=== PATIENT | female | born 1990 | race Asian ===

== ENCOUNTER 2021-02-19 10:52 | Inpatient (IN) | payer MEDICAID, OTHER ==
[~2021-02-19] VITALS: Ht 154.9 cm; Wt 60.0 kg
[2021-02-19 12:35] LABS: AMPHET/METH SCREEN,URINE POSITIVE (NEGATIVE); BARBITURATE SCREEN, URINE NEGATIVE (NEGATIVE); BENZODIAZEPINES SCREEN,URINE NEGATIVE (NEGATIVE); CANNABINOID SCREEN,URINE POSITIVE (NEGATIVE); COCAINE SCREEN,URINE NEGATIVE (NEGATIVE); METHADONE SCREEN, URINE NEGATIVE (NEGATIVE); OPIATE SCREEN,URINE NEGATIVE (NEGATIVE); PHENCYCLIDINE SCREEN,URINE NEGATIVE (NEGATIVE)
[2021-02-19 12:38] LABS: BASOPHILS % (AUTO) 0.4 % (0.0-2.0); EOSINOPHILS % (AUTO) 3.2 % (1.0-6.0); HEMATOCRIT 47.6 % (36-46); HEMOGLOBIN 15.8 g/dL (12.0-16.0); LYMPHOCYTES # (AUTO) 1.8 K/uL (1.0-4.8); LYMPHOCYTES % (AUTO) 17.2 % (22.0-44.0); MEAN CORPUSCULAR HEMOGLOBIN 30.7 pg (26.0-34.0); MEAN CORPUSCULAR HGB CONC 33.2 G/dL (31.0-37.0); MEAN CORPUSCULAR VOLUME 93 fL (80-100); MONOCYTES # (AUTO) 0.7 K/uL (0.1-1.0); MONOCYTES % (AUTO) 6.7 % (2.0-9.0); NEUTROPHILS # (AUTO) 7.6 K/uL (1.8-7.7); NEUTROPHILS % (AUTO) 72.5 % (40.0-70.0); PLATELET COUNT (AUTO) 254 K/uL (150-450); RED BLOOD CELL COUNT(AUTO) 5.14 MIL/uL (4.00-5.20); RED CELL DISTRIBUTION WIDTH 12.9 % (11.5-14.5)
[2021-02-19 12:49] LABS: ANION GAP 15 mmol/L (8-16); CARBON DIOXIDE 23 mmol/L (22-29); CHLORIDE 104 mmol/L (98-107); CREATININE 0.73 mg/dL (0.60-1.30); GLOMERULAR FILTR. RATE CALC > 60 mL/min (>60); GLUCOSE,RANDOM 87 mg/dL (70-110); POTASSIUM 3.9 mmol/L (3.5-5.1); SODIUM SERUM 142 mmol/L (136-145); UREA NITROGEN, BLOOD 16 mg/dL (7-18)
[2021-02-19 12:54] LABS: ALANINE AMINOTRANSFERASE 30 U/L (12-78); ALBUMIN 4.3 g/dL (3.4-5.0); ALKALINE PHOSPHATASE 117 U/L (46-116); ASPARTATE AMINOTRANSFERASE 20 U/L (15-37); BILIRUBIN,TOTAL 1.2 mg/dL (0.1-1.0); TOTAL PROTEIN, SERUM 8.2 g/dL (6.4-8.2)
[2021-02-19 13:13] LABS: COVID AG,FIA SOURCE NASOPHARYNGEAL
[2021-02-19] MEDS ORDERED: ZOLPIDEM TARTRATE 10 MG TABLET PO PRN (13:15)
[2021-02-19 17:57] VITALS: BP 127/82
[2021-02-20] MEDS ORDERED: DOCUSATE SODIUM 100 MG CAPSULE PO PRN (08:30)
[2021-02-20] MEDS ORDERED: MAGNESIUM HYDROXIDE SUSPENSION 30 ML UDCUP PO PRN (08:30)
[2021-02-20] MEDS ORDERED: ALBUTEROL SULFATE HFA 90 MCG/PUFF 8 GM INHALER IH PRN (08:30)
[2021-02-20] MEDS ORDERED: BENZOCAINE/MENTHOL LOZENGE PO PRN (08:30)
[2021-02-20] MEDS ORDERED: LOPERAMIDE HCL 2 MG CAPSULE PO PRN (08:30)
[2021-02-20] MEDS ORDERED: OMEPRAZOLE 20 MG CAPSULE PO PRN (08:30)
[2021-02-20] MEDS ORDERED: ACETAMINOPHEN 325 MG TABLET PO PRN (08:30)
[2021-02-20] MEDS ORDERED: PETROLATUM,WHITE 28 GM JELLY TP PRN (08:30)
[2021-02-20] MEDS ORDERED: CloNIDine HCL 0.1 MG TABLET PO PRN (08:30)
[2021-02-20] MEDS ORDERED: IBUPROFEN 600 MG TABLET PO PRN (08:30)
[2021-02-20] MEDS ORDERED: BACITRACIN 28 GM OINTMENT TP PRN (08:30)
[2021-02-20] MEDS ORDERED: ONDANSETRON HCL 4 MG TABLET PO PRN (08:30)
[2021-02-20] MEDS ORDERED: MAG HYDROX/AL HYDROX/SIMETH ES 30 ML SUSPENSION UDCUP PO PRN (08:30)
[2021-02-20 08:45] VITALS: BP 131/89
[2021-02-20] MEDS: NICOTINE 21 MG/24 HOUR PATCH TD SCH (10:04)
[2021-02-20] MEDS: BusPIRone HCL 5 MG TABLET PO SCH ×2 (11:21→16:18)
[2021-02-20 11:36] LABS: BILIRUBIN,URINE NEGATIVE (NEGATIVE); GLUCOSE, URINE (UA) NEGATIVE (NEGATIVE); KETONES,URINE NEGATIVE (NEGATIVE); LEUKOCYTE ESTERASE ,URINE NEGATIVE (NEGATIVE); NITRATE,URINE NEGATIVE (NEGATIVE); OCCULT BLOOD,URINE NEGATIVE (NEGATIVE); PH,URINE 5.5 (5.0-8.0); PROTEIN,URINE NEGATIVE (NEGATIVE); UROBILINOGEN,URINE 0.2 mg/dL (<=1.0)
[2021-02-20 11:40] LABS: APPEARANCE,URINE CLEAR (CLEAR)
[2021-02-20 11:47] LABS: BACTERIA,URINE None Seen /HPF (None Seen); RBC,URINE None Seen /HPF (0-2); WBC,URINE None Seen /HPF (0-5)
[2021-02-20 12:32] LABS: CHOL/HDL RATIO 3.6 (3.9-5.7); THYROID STIMULATING HORMONE 1.34 uIU/mL (0.36-3.74)
[2021-02-20 16:22] VITALS: BP 116/74
[2021-02-20] MEDS: TraZODone HCL 50 MG TABLET PO SCH (20:34)
[2021-02-21 04:07] VITALS: BP 122/83
[2021-02-21 08:00] VITALS: BP 118/71
[2021-02-21] MEDS: BusPIRone HCL 5 MG TABLET PO SCH ×2 (08:33→16:33)
[2021-02-21] MEDS: NICOTINE 21 MG/24 HOUR PATCH TD SCH (08:34)
[2021-02-21] MEDS: LORazepam 2 MG TABLET PO PRN (08:52)
[2021-02-21] MEDS: HALOPERIDOL 5 MG TABLET PO PRN (12:54)
[2021-02-21 16:00] VITALS: BP 117/76
[2021-02-21] MEDS: TraZODone HCL 50 MG TABLET PO SCH (20:33)
[2021-02-22 00:05] VITALS: BP 133/64
[2021-02-22] MEDS: BusPIRone HCL 5 MG TABLET PO SCH ×3 (08:01→17:00)
[2021-02-22] MEDS: NICOTINE 21 MG/24 HOUR PATCH TD SCH ×2 (08:02→09:00)
[2021-02-22 09:24] VITALS: BP 126/84
[2021-02-22 13:54] LABS: APPEARANCE,URINE CLOUDY (CLEAR); BILIRUBIN,URINE NEGATIVE (NEGATIVE); GLUCOSE, URINE (UA) NEGATIVE (NEGATIVE); KETONES,URINE NEGATIVE (NEGATIVE); LEUKOCYTE ESTERASE ,URINE NEGATIVE (NEGATIVE); NITRATE,URINE NEGATIVE (NEGATIVE); OCCULT BLOOD,URINE NEGATIVE (NEGATIVE); PH,URINE 7.5 (5.0-8.0); PROTEIN,URINE NEGATIVE (NEGATIVE); UROBILINOGEN,URINE 0.2 mg/dL (<=1.0)
[2021-02-22] MEDS: LORazepam 2 MG TABLET PO PRN (15:08)
[2021-02-22 16:00] VITALS: BP 99/69
[2021-02-22] MEDS: TraZODone HCL 50 MG TABLET PO SCH (20:14)
[2021-02-23 04:43] VITALS: BP 108/65
[2021-02-23] MEDS: BusPIRone HCL 5 MG TABLET PO SCH ×3 (09:00→16:51)
[2021-02-23] MEDS: NICOTINE 21 MG/24 HOUR PATCH TD SCH (09:26)
[2021-02-23 10:00] VITALS: BP 106/68
[2021-02-23 17:59] VITALS: BP 117/80
[2021-02-23] MEDS: TraZODone HCL 50 MG TABLET PO SCH (20:24)
[2021-02-24 02:50] VITALS: BP 112/77
[2021-02-24] MEDS: BusPIRone HCL 5 MG TABLET PO SCH ×2 (09:00→16:52)
[2021-02-24] MEDS: LORazepam 2 MG TABLET PO PRN (10:32)
[2021-02-24] MEDS: NICOTINE 21 MG/24 HOUR PATCH TD SCH (10:33)
[2021-02-24 11:41] VITALS: BP 97/77
[2021-02-24 16:44] VITALS: BP 113/78
[2021-02-24] MEDS: TraZODone HCL 50 MG TABLET PO SCH (20:45)
[2021-02-25] MEDS: LORazepam 2 MG TABLET PO PRN ×2 (08:13→13:49)
[2021-02-25] MEDS: NICOTINE 21 MG/24 HOUR PATCH TD SCH (08:15)
[2021-02-25] MEDS: HALOPERIDOL 5 MG TABLET PO PRN ×2 (08:15→17:13)
[2021-02-25 08:54] VITALS: BP 142/91
[2021-02-25] MEDS: BusPIRone HCL 5 MG TABLET PO SCH ×2 (09:00→17:00)
[2021-02-25] MEDS: TraZODone HCL 50 MG TABLET PO SCH (20:44)
[2021-02-26] MEDS: BusPIRone HCL 5 MG TABLET PO SCH ×2 (09:00→17:41)
[2021-02-26] MEDS: LORazepam 2 MG TABLET PO PRN ×2 (09:13→15:05)
[2021-02-26] MEDS: NICOTINE 21 MG/24 HOUR PATCH TD SCH (09:13)
[2021-02-26 10:25] VITALS: BP 120/62
[2021-02-26] MEDS: HALOPERIDOL 5 MG TABLET PO PRN (15:10)
[2021-02-26 16:23] VITALS: BP 123/85
[2021-02-26] MEDS: TraZODone HCL 50 MG TABLET PO SCH (21:44)
[2021-02-27] MEDS: LORazepam 2 MG TABLET PO PRN ×2 (08:17→14:30)
[2021-02-27] MEDS: MULTIVITAMINS WITH MINERALS, THERAPEUTIC TABLET PO SCH (08:18)
[2021-02-27] MEDS: HALOPERIDOL 5 MG TABLET PO PRN (08:18)
[2021-02-27] MEDS: NICOTINE 21 MG/24 HOUR PATCH TD SCH (08:20)
[2021-02-27] MEDS: BusPIRone HCL 5 MG TABLET PO SCH ×3 (08:35→17:00)
[2021-02-27] MEDS ORDERED: RisperiDONE MICROSPHERES 50 MG/2 ML SYRINGE IM SCH (09:00)
[2021-02-27 09:30] VITALS: BP 104/74
[2021-02-27 17:16] VITALS: BP 132/80
[2021-02-27] MEDS: TraZODone HCL 50 MG TABLET PO SCH (20:52)
[2021-02-28] MEDS: MULTIVITAMINS WITH MINERALS, THERAPEUTIC TABLET PO SCH (09:20)
[2021-02-28] MEDS: BusPIRone HCL 5 MG TABLET PO SCH ×2 (09:20→16:46)
[2021-02-28] MEDS: NICOTINE 21 MG/24 HOUR PATCH TD SCH (09:21)
[2021-02-28] MEDS: LORazepam 2 MG TABLET PO PRN ×2 (12:20→16:46)
[2021-02-28 15:08] VITALS: BP 110/89
[2021-02-28] MEDS: HALOPERIDOL 5 MG TABLET PO PRN (15:16)
[2021-02-28 16:51] VITALS: BP 110/93
[2021-02-28] MEDS: TraZODone HCL 50 MG TABLET PO SCH (20:17)
[2021-03-01 04:00] VITALS: BP 115/69
[2021-03-01 08:28] VITALS: BP 145/83
[2021-03-01] MEDS: BusPIRone HCL 5 MG TABLET PO SCH (08:29)
[2021-03-01] MEDS: LORazepam 2 MG TABLET PO PRN (08:29)
[2021-03-01] MEDS: NICOTINE 21 MG/24 HOUR PATCH TD SCH (08:29)
[2021-03-01] MEDS: MULTIVITAMINS WITH MINERALS, THERAPEUTIC TABLET PO SCH (08:29)
[2021-03-01 10:00] LABS: COVID AG,FIA SOURCE NASAL SWAB
[2021-03-01] MEDS ORDERED: BUSP5TAB20 PO (11:36)
[2021-03-01] MEDS ORDERED: TRAZ-252 PO (11:36)
[2021-03-01] MEDS ORDERED: RISPC50 IM (11:37)
== END 2021-03-01 12:50 | disposition home or self-care (01) | DRG 750 ==
LOC: EMS 10:52 → 3EI 13:06
PROVIDERS: ADMIT Psychiatry & Neurology Psychiatry; ATTEND Psychiatry & Neurology Psychiatry
DX: F25.9 Schizoaffective disorder, unspecified (principal); F15.10 Other stimulant abuse, uncomplicated; F32.A Depression, unspecified; F41.9 Anxiety disorder, unspecified; G47.00 Insomnia, unspecified; Z20.822 Contact with and (suspected) exposure to COVID-19; K59.00 Constipation, unspecified; Z72.0 Tobacco use; Z71.6 Tobacco abuse counseling; Z88.8 Allergy status to other drugs, medicaments and biological substances
CPT/HCPCS: 80053; 80061; 81001; 81003; 84439; 84443; 84703; 85025; 99285; G0480; J2794

== ENCOUNTER 2021-03-07 17:06 | Emergency (ER) | payer MEDICAID, OTHER ==
[~2021-03-07 17:06] MED LIST: BUSP5TAB20 PO; RISPC50 IM; TRAZ-252 PO
== END 2021-03-07 19:40 | disposition left against medical advice (07) ==
LOC: EMS 17:11
DX: Z04.6 Encounter for general psychiatric examination, requested by authority (principal); Z53.21 Procedure and treatment not carried out due to patient leaving prior to being seen by health care provider

== ENCOUNTER 2021-07-12 01:52 | Emergency (ER) | payer OTHER ==
[~2021-07-12] VITALS: Ht 157.5 cm; Wt 63.6 kg
[2021-07-12] MEDS ORDERED: PROP60CA38 PO (02:03)
[2021-07-12] MEDS ORDERED: ONDANSETRON HCL 4 MG TABLET PO ONE (04:45)
[2021-07-12] MEDS ORDERED: ACETAMINOPHEN 500 MG TABLET PO ONE (04:45)
[2021-07-12 07:12] VITALS: BP 118/71
== END 2021-07-12 07:15 | disposition home or self-care (01) ==
LOC: EMS 01:58
DX: G43.909 Migraine, unspecified, not intractable, without status migrainosus (principal); J45.909 Unspecified asthma, uncomplicated; F20.9 Schizophrenia, unspecified; F12.90 Cannabis use, unspecified, uncomplicated; F17.210 Nicotine dependence, cigarettes, uncomplicated; Z79.899 Other long term (current) drug therapy
CPT/HCPCS: 99283; Q0162

== ENCOUNTER 2021-07-20 20:41 | Emergency (ER) | payer OTHER ==
[~2021-07-20 20:41] MED LIST changes: +PROP60CA38 PO
== END 2021-07-20 20:46 | disposition left against medical advice (07) ==
LOC: EMS 20:41
DX: Z00.00 Encounter for general adult medical examination without abnormal findings (principal); Z53.21 Procedure and treatment not carried out due to patient leaving prior to being seen by health care provider

== ENCOUNTER → 2021-08-17 | Emergency (ER) | payer OTHER ==
[~2021-08-17] VITALS: Ht 154.9 cm; Wt 61.4 kg
[2021-08-17 12:58] VITALS: BP 110/69
== END | disposition left against medical advice (07) ==
LOC: EMS 12:30
DX: Z53.21 Procedure and treatment not carried out due to patient leaving prior to being seen by health care provider (principal)
CPT/HCPCS: 84703; 93005

== ENCOUNTER 2021-08-27 13:00 | Inpatient (IN) | payer MEDICAID ==
[~2021-08-27] VITALS: Ht 154.9 cm; Wt 62.7 kg
[2021-08-27] MEDS ORDERED: ZOLPIDEM TARTRATE 10 MG TABLET PO PRN (13:15)
[2021-08-27 14:16] LABS: GLUCOMETER DEV NAME(LOC) POC.BV
[2021-08-27 14:35] VITALS: BP 123/79
[2021-08-27 16:19] VITALS: BP_SYST 103; BP_SYST 145; BP_DIAS 60; BP_DIAS 83
[2021-08-27] MEDS: LORazepam 2 MG TABLET PO PRN (20:59)
[2021-08-27] MEDS ORDERED: PROPRANOLOL HCL 20 MG TABLET PO SCH (21:30)
[2021-08-27] MEDS: PROPRANOLOL HCL 10 MG TABLET PO SCH (21:43)
[2021-08-28 06:04] VITALS: BP 127/66
[2021-08-28 07:38] LABS: BASOPHILS % (AUTO) 0.5 % (0.0-2.0); EOSINOPHILS % (AUTO) 8.3 % (1.0-6.0); HEMATOCRIT 43.5 % (36-46); HEMOGLOBIN 14.8 g/dL (12.0-16.0); LYMPHOCYTES # (AUTO) 2.1 K/uL (1.0-4.8); LYMPHOCYTES % (AUTO) 29.5 % (22.0-44.0); MEAN CORPUSCULAR HEMOGLOBIN 30.5 pg (26.0-34.0); MEAN CORPUSCULAR HGB CONC 34.1 G/dL (31.0-37.0); MEAN CORPUSCULAR VOLUME 90 fL (80-100); MONOCYTES # (AUTO) 0.7 K/uL (0.1-1.0); MONOCYTES % (AUTO) 9.6 % (2.0-9.0); NEUTROPHILS # (AUTO) 3.6 K/uL (1.8-7.7); NEUTROPHILS % (AUTO) 52.1 % (40.0-70.0); PLATELET COUNT (AUTO) 247 K/uL (150-450); RED BLOOD CELL COUNT(AUTO) 4.86 MIL/uL (4.00-5.20); RED CELL DISTRIBUTION WIDTH 13.3 % (11.5-14.5)
[2021-08-28 07:44] LABS: ALANINE AMINOTRANSFERASE 24 U/L (12-78); ALBUMIN 3.5 g/dL (3.4-5.0); ALKALINE PHOSPHATASE 81 U/L (46-116); ANION GAP 9 mmol/L (8-16); ASPARTATE AMINOTRANSFERASE 16 U/L (15-37); BILIRUBIN,TOTAL 1.2 mg/dL (0.1-1.0); CALCIUM, TOTAL 8.8 mg/dL (8.8-10.5); CARBON DIOXIDE 28 mmol/L (22-29); CHLORIDE 105 mmol/L (98-107); CREATININE 0.82 mg/dL (0.60-1.30); FREE T4 (FREE THYROXINE) 1.08 ng/dL (0.76-1.46); GLOMERULAR FILTR. RATE CALC > 60 mL/min (>60); GLUCOSE,RANDOM 85 mg/dL (70-110); HCG,QUANTITATIVE < 1 mIU/mL (0-6); POTASSIUM 4.4 mmol/L (3.5-5.1); SODIUM SERUM 142 mmol/L (136-145); UREA NITROGEN, BLOOD 12 mg/dL (7-18)
[2021-08-28 08:00] VITALS: BP 108/70
[2021-08-28] MEDS: PROPRANOLOL HCL 10 MG TABLET PO SCH (08:24)
[2021-08-28] MEDS ORDERED: PETROLATUM,WHITE 28 GM JELLY TP PRN (08:45)
[2021-08-28] MEDS ORDERED: MAG HYDROX/AL HYDROX/SIMETH ES 30 ML SUSPENSION UDCUP PO PRN (08:45)
[2021-08-28] MEDS ORDERED: DOCUSATE SODIUM 100 MG CAPSULE PO PRN (08:45)
[2021-08-28] MEDS ORDERED: CloNIDine HCL 0.1 MG TABLET PO PRN (08:45)
[2021-08-28] MEDS ORDERED: MAGNESIUM HYDROXIDE SUSPENSION 30 ML UDCUP PO PRN (08:45)
[2021-08-28] MEDS ORDERED: ONDANSETRON HCL 4 MG TABLET PO PRN (08:45)
[2021-08-28] MEDS ORDERED: IBUPROFEN 600 MG TABLET PO PRN (08:45)
[2021-08-28] MEDS ORDERED: ALBUTEROL SULFATE HFA 90 MCG/PUFF 8 GM INHALER IH PRN (08:45)
[2021-08-28] MEDS ORDERED: ACETAMINOPHEN 325 MG TABLET PO PRN (08:45)
[2021-08-28] MEDS ORDERED: BENZOCAINE/MENTHOL LOZENGE PO PRN (08:45)
[2021-08-28] MEDS ORDERED: BACITRACIN 28 GM OINTMENT TP PRN (08:45)
[2021-08-28] MEDS ORDERED: OMEPRAZOLE 20 MG CAPSULE PO PRN (08:45)
[2021-08-28] MEDS ORDERED: LOPERAMIDE HCL 2 MG CAPSULE PO PRN (08:45)
[2021-08-28] MEDS: LORazepam 2 MG TABLET PO PRN (12:08)
[2021-08-28 16:40] VITALS: BP 93/61
[2021-08-29 05:21] VITALS: BP 120/70
[2021-08-29] MEDS: PROPRANOLOL HCL 10 MG TABLET PO SCH (08:13)
[2021-08-29] MEDS: RisperiDONE 3 MG TABLET PO SCH ×2 (08:13→16:22)
[2021-08-29 08:17] VITALS: BP 112/73
[2021-08-29] MEDS ORDERED: LORazepam 2 MG/ML VIAL ONE (08:33)
[2021-08-29] MEDS ORDERED: HALOPERIDOL LACTATE 5 MG/ML VIAL ONE (08:33)
[2021-08-29] MEDS ORDERED: DiphenhydrAMINE HCL 50 MG/ML VIAL ONE (08:33)
[2021-08-29] MEDS ORDERED: LORazepam 2 MG/ML VIAL IM ONE (08:45)
[2021-08-29] MEDS ORDERED: HALOPERIDOL LACTATE 5 MG/ML VIAL IM ONE (08:45)
[2021-08-29] MEDS ORDERED: DiphenhydrAMINE HCL 50 MG/ML VIAL IM ONE (08:45)
[2021-08-29 16:17] VITALS: BP 100/75
[2021-08-30] MEDS: RisperiDONE 3 MG TABLET PO SCH ×3 (08:03→17:24)
[2021-08-30] MEDS: LORazepam 2 MG TABLET PO PRN (08:03)
[2021-08-30] MEDS: PROPRANOLOL HCL 10 MG TABLET PO SCH (08:05)
[2021-08-30] MEDS ORDERED: RisperiDONE MICROSPHERES 50 MG/2 ML SYRINGE IM SCH (09:00)
[2021-08-30 16:58] VITALS: BP 91/60
[2021-08-31 01:11] VITALS: BP 106/67
[2021-08-31] MEDS: PROPRANOLOL HCL 10 MG TABLET PO SCH (07:56)
[2021-08-31 08:02] VITALS: BP 100/65
[2021-08-31 09:00] VITALS: BP 108/70
[2021-08-31] MEDS: LORazepam 2 MG TABLET PO PRN (09:13)
[2021-08-31] MEDS: HALOPERIDOL 5 MG TABLET PO PRN (09:48)
[2021-08-31 16:21] VITALS: BP 105/66
[2021-08-31] MEDS: RisperiDONE 3 MG TABLET PO SCH ×2 (16:38→16:40)
[2021-09-01 05:47] VITALS: BP 110/95
[2021-09-01 08:06] VITALS: BP 116/69
[2021-09-01] MEDS: RisperiDONE 3 MG TABLET PO SCH ×2 (08:27→17:00)
[2021-09-01] MEDS: PROPRANOLOL HCL 10 MG TABLET PO SCH (08:27)
[2021-09-01] MEDS: LORazepam 2 MG TABLET PO PRN (08:28)
[2021-09-01 16:13] VITALS: BP 102/64
[2021-09-02 08:10] VITALS: BP 102/62
[2021-09-02] MEDS: LORazepam 2 MG TABLET PO PRN (08:20)
[2021-09-02] MEDS: PROPRANOLOL HCL 10 MG TABLET PO SCH (08:21)
[2021-09-02] MEDS: HALOPERIDOL 5 MG TABLET PO PRN (08:24)
[2021-09-02 08:30] VITALS: BP 108/68
[2021-09-02 16:44] VITALS: BP 128/82
[2021-09-03 06:33] VITALS: BP 105/74
[2021-09-03 08:08] VITALS: BP 104/70
[2021-09-03] MEDS: PROPRANOLOL HCL 10 MG TABLET PO SCH (08:21)
[2021-09-03] MEDS: LORazepam 2 MG TABLET PO PRN ×2 (08:22→17:18)
[2021-09-03] MEDS: HALOPERIDOL 5 MG TABLET PO PRN ×2 (10:48→17:18)
[2021-09-03 16:06] VITALS: BP 102/60
[2021-09-04 05:41] VITALS: BP 120/84
[2021-09-04 08:04] VITALS: BP 108/68
[2021-09-04] MEDS: PROPRANOLOL HCL 10 MG TABLET PO SCH (08:05)
[2021-09-04 11:26] LABS: GLUCOMETER DEV NAME(LOC) POC.BV
== END 2021-09-04 11:15 | disposition home or self-care (01) | DRG 750 ==
LOC: B3A 13:00
PROVIDERS: ADMIT Psychiatry & Neurology Psychiatry; ATTEND Psychiatry & Neurology Psychiatry
DX: F25.9 Schizoaffective disorder, unspecified (principal); F15.10 Other stimulant abuse, uncomplicated; Z20.822 Contact with and (suspected) exposure to COVID-19; F32.A Depression, unspecified; F41.9 Anxiety disorder, unspecified; G47.00 Insomnia, unspecified; K59.00 Constipation, unspecified; Z72.0 Tobacco use; Z71.6 Tobacco abuse counseling
CPT/HCPCS: 80053; 84439; 84443; 84702; 85025; J1200; J1630; J2060; J2794

== ENCOUNTER 2021-09-10 17:10 | Inpatient (IN) | payer MEDICAID, OTHER ==
[~2021-09-10] VITALS: Ht 154.9 cm; Wt 71.6 kg
[~2021-09-10 17:10] MED LIST changes: -BUSP5TAB20 PO; -TRAZ-252 PO
[2021-09-10 18:16] LABS: BASOPHILS % (AUTO) 0.4 % (0.0-2.0); EOSINOPHILS % (AUTO) 4.7 % (1.0-6.0); HEMATOCRIT 44.3 % (36-46); HEMOGLOBIN 14.9 g/dL (12.0-16.0); LYMPHOCYTES # (AUTO) 1.9 K/uL (1.0-4.8); LYMPHOCYTES % (AUTO) 26.9 % (22.0-44.0); MEAN CORPUSCULAR HEMOGLOBIN 30.5 pg (26.0-34.0); MEAN CORPUSCULAR HGB CONC 33.7 G/dL (31.0-37.0); MEAN CORPUSCULAR VOLUME 91 fL (80-100); MONOCYTES # (AUTO) 0.7 K/uL (0.1-1.0); MONOCYTES % (AUTO) 9.2 % (2.0-9.0); NEUTROPHILS # (AUTO) 4.2 K/uL (1.8-7.7); NEUTROPHILS % (AUTO) 58.8 % (40.0-70.0); PLATELET COUNT (AUTO) 232 K/uL (150-450); RED BLOOD CELL COUNT(AUTO) 4.89 MIL/uL (4.00-5.20); RED CELL DISTRIBUTION WIDTH 13.5 % (11.5-14.5)
[2021-09-10 18:21] LABS: COVID AG,FIA SOURCE NASOPHARYNGEAL
[2021-09-10 18:25] LABS: CALCIUM, TOTAL 9.2 mg/dL (8.8-10.5); CARBON DIOXIDE 28 mmol/L (22-29); CHLORIDE 103 mmol/L (98-107); CREATININE 0.88 mg/dL (0.60-1.30); GLOMERULAR FILTR. RATE CALC > 60 mL/min (>60); GLUCOSE,RANDOM 88 mg/dL (70-110); POTASSIUM 3.8 mmol/L (3.5-5.1); UREA NITROGEN, BLOOD 11 mg/dL (7-18)
[2021-09-10 18:36] LABS: ALANINE AMINOTRANSFERASE 22 U/L (12-78); ALBUMIN 4.1 g/dL (3.4-5.0); ALKALINE PHOSPHATASE 85 U/L (46-116); ASPARTATE AMINOTRANSFERASE 16 U/L (15-37); BILIRUBIN,TOTAL 1.3 mg/dL (0.1-1.0); HCG,QUANTITATIVE < 1 mIU/mL (0-6); TOTAL PROTEIN, SERUM 7.9 g/dL (6.4-8.2)
[2021-09-10 18:40] LABS: ANION GAP 8 mmol/L (8-16); SODIUM SERUM 139 mmol/L (136-145)
[2021-09-10 18:41] LABS: AMPHET/METH SCREEN,URINE POSITIVE (NEGATIVE); BARBITURATE SCREEN, URINE NEGATIVE (NEGATIVE); BENZODIAZEPINES SCREEN,URINE NEGATIVE (NEGATIVE); CANNABINOID SCREEN,URINE POSITIVE (NEGATIVE); COCAINE SCREEN,URINE NEGATIVE (NEGATIVE); METHADONE SCREEN, URINE NEGATIVE (NEGATIVE); OPIATE SCREEN,URINE NEGATIVE (NEGATIVE); PHENCYCLIDINE SCREEN,URINE NEGATIVE (NEGATIVE)
[2021-09-10] MEDS ORDERED: LORazepam 2 MG/ML VIAL IM ONE (21:00)
[2021-09-10] MEDS ORDERED: DiphenhydrAMINE HCL 50 MG/ML VIAL IM ONE (21:00)
[2021-09-10] MEDS ORDERED: HALOPERIDOL LACTATE 5 MG/ML VIAL IM ONE (21:00)
[2021-09-11] MEDS ORDERED: ZOLPIDEM TARTRATE 10 MG TABLET PO PRN (03:30)
[2021-09-11] MEDS ORDERED: LORazepam 2 MG TABLET PO PRN (03:30)
[2021-09-11] MEDS ORDERED: HALOPERIDOL 5 MG TABLET PO PRN (03:30)
[2021-09-11 03:50] VITALS: BP 130/80
[2021-09-11 08:26] VITALS: BP 103/61
[2021-09-11 11:48] LABS: COVID AG,FIA SOURCE NASAL SWAB
[2021-09-11] MEDS ORDERED: LORazepam 2 MG/ML VIAL IM ONE (15:45)
[2021-09-11] MEDS ORDERED: HALOPERIDOL LACTATE 5 MG/ML VIAL IM ONE (15:45)
[2021-09-11] MEDS ORDERED: DiphenhydrAMINE HCL 50 MG/ML VIAL IM ONE (15:45)
[2021-09-11] MEDS ORDERED: PROP20TA18 PO (15:57)
[2021-09-11] MEDS ORDERED: MONT-40 PO (15:57)
[2021-09-11] MEDS ORDERED: ERYT60SO4 TP (15:57)
[2021-09-11] MEDS ORDERED: FLUT16SP NASAL (15:57)
[2021-09-11] MEDS ORDERED: LORA10TA7 PO (15:57)
[2021-09-11] MEDS ORDERED: TRAZ-252 PO (15:57)
[2021-09-11] MEDS ORDERED: ALBU8HFA IH (15:57)
[2021-09-11] MEDS ORDERED: ONDANSETRON HCL 4 MG TABLET PO PRN (20:45)
[2021-09-11] MEDS ORDERED: CloNIDine HCL 0.1 MG TABLET PO PRN (20:45)
[2021-09-11] MEDS ORDERED: BACITRACIN 28 GM OINTMENT TP PRN (20:45)
[2021-09-11] MEDS ORDERED: PETROLATUM,WHITE 28 GM JELLY TP PRN (20:45)
[2021-09-11] MEDS ORDERED: DOCUSATE SODIUM 100 MG CAPSULE PO PRN (20:45)
[2021-09-11] MEDS ORDERED: MAGNESIUM HYDROXIDE SUSPENSION 30 ML UDCUP PO PRN (20:45)
[2021-09-11] MEDS ORDERED: BENZOCAINE/MENTHOL LOZENGE PO PRN (20:45)
[2021-09-11] MEDS: DIVALPROEX SODIUM 500 MG DR TABLET PO SCH (21:00)
[2021-09-11] MEDS: RisperiDONE 3 MG TABLET PO SCH (21:00)
[2021-09-12 08:37] VITALS: BP 99/66
[2021-09-12] MEDS: RisperiDONE 3 MG TABLET PO SCH ×2 (08:38→20:17)
[2021-09-12] MEDS: PROPRANOLOL HCL 20 MG TABLET PO SCH ×2 (08:38→16:01)
[2021-09-12] MEDS: LORATADINE 10 MG TABLET PO SCH (08:38)
[2021-09-12] MEDS: DIVALPROEX SODIUM 500 MG DR TABLET PO SCH ×2 (08:38→20:17)
[2021-09-12] MEDS: HALOPERIDOL 5 MG TABLET PO PRN (16:02)
[2021-09-12 16:03] VITALS: BP 102/63
[2021-09-13 08:00] VITALS: BP 127/74
[2021-09-13] MEDS: DIVALPROEX SODIUM 500 MG DR TABLET PO SCH ×2 (09:11→20:20)
[2021-09-13] MEDS: PROPRANOLOL HCL 20 MG TABLET PO SCH ×2 (09:11→16:38)
[2021-09-13] MEDS: RisperiDONE 3 MG TABLET PO SCH ×2 (09:11→20:20)
[2021-09-13] MEDS: LORATADINE 10 MG TABLET PO SCH (09:11)
[2021-09-13] MEDS: RisperiDONE MICROSPHERES 50 MG/2 ML SYRINGE IM SCH (13:46)
[2021-09-13 16:22] VITALS: BP 108/65
[2021-09-14] MEDS: PROPRANOLOL HCL 20 MG TABLET PO SCH ×2 (07:52→16:58)
[2021-09-14] MEDS: RisperiDONE 3 MG TABLET PO SCH ×2 (07:52→20:40)
[2021-09-14] MEDS: LORATADINE 10 MG TABLET PO SCH (07:52)
[2021-09-14] MEDS: DIVALPROEX SODIUM 500 MG DR TABLET PO SCH ×2 (07:52→20:40)
[2021-09-14 08:48] VITALS: BP 110/72
[2021-09-14 16:18] VITALS: BP 115/77
[2021-09-14] MEDS: LORazepam 2 MG TABLET PO PRN (16:58)
[2021-09-14] MEDS: HALOPERIDOL 5 MG TABLET PO PRN (16:58)
[2021-09-15 08:07] VITALS: BP 103/65
[2021-09-15] MEDS: LORazepam 2 MG TABLET PO PRN ×2 (08:56→16:28)
[2021-09-15] MEDS: DIVALPROEX SODIUM 500 MG DR TABLET PO SCH ×2 (08:56→20:44)
[2021-09-15] MEDS: PROPRANOLOL HCL 20 MG TABLET PO SCH ×2 (08:57→16:28)
[2021-09-15] MEDS: LORATADINE 10 MG TABLET PO SCH (08:57)
[2021-09-15] MEDS: RisperiDONE 3 MG TABLET PO SCH ×2 (08:57→20:44)
[2021-09-15 10:04] LABS: COVID AG,FIA SOURCE NASOPHARYNGEAL
[2021-09-15 16:11] VITALS: BP 120/92
[2021-09-15] MEDS: HALOPERIDOL 5 MG TABLET PO PRN (16:28)
[2021-09-16 08:30] VITALS: BP 99/66
[2021-09-16] MEDS: DIVALPROEX SODIUM 500 MG DR TABLET PO SCH ×3 (08:45→20:15)
[2021-09-16] MEDS: LORATADINE 10 MG TABLET PO SCH ×2 (08:46→09:00)
[2021-09-16] MEDS: RisperiDONE 3 MG TABLET PO SCH ×3 (08:46→20:15)
[2021-09-16] MEDS: PROPRANOLOL HCL 20 MG TABLET PO SCH ×3 (08:46→16:13)
[2021-09-16] MEDS: HALOPERIDOL 5 MG TABLET PO PRN (16:13)
[2021-09-16] MEDS: LORazepam 2 MG TABLET PO PRN (16:13)
[2021-09-16 16:23] VITALS: BP 110/73
[2021-09-17 08:30] VITALS: BP 129/73
[2021-09-17] MEDS: RisperiDONE 3 MG TABLET PO SCH ×3 (08:59→20:25)
[2021-09-17] MEDS: DIVALPROEX SODIUM 500 MG DR TABLET PO SCH ×3 (08:59→20:25)
[2021-09-17] MEDS: PROPRANOLOL HCL 20 MG TABLET PO SCH ×2 (08:59→16:04)
[2021-09-17] MEDS: LORATADINE 10 MG TABLET PO SCH (08:59)
[2021-09-17 14:48] LABS: COVID AG,FIA SOURCE NASAL SWAB
[2021-09-17 16:08] VITALS: BP 128/77
[2021-09-17] MEDS: HALOPERIDOL 5 MG TABLET PO PRN (16:08)
[2021-09-18 08:08] VITALS: BP 114/88
[2021-09-18] MEDS: RisperiDONE 3 MG TABLET PO SCH ×2 (09:56→20:16)
[2021-09-18] MEDS: PROPRANOLOL HCL 20 MG TABLET PO SCH ×2 (09:56→17:47)
[2021-09-18] MEDS: LORATADINE 10 MG TABLET PO SCH (09:56)
[2021-09-18] MEDS: DIVALPROEX SODIUM 500 MG DR TABLET PO SCH ×2 (09:57→20:16)
[2021-09-18] MEDS: HALOPERIDOL 5 MG TABLET PO PRN (15:54)
[2021-09-18 16:07] VITALS: BP 105/70
[2021-09-19 08:01] VITALS: BP 187/135
[2021-09-19] MEDS: RisperiDONE 3 MG TABLET PO SCH ×2 (08:03→20:57)
[2021-09-19] MEDS: LORATADINE 10 MG TABLET PO SCH (08:03)
[2021-09-19] MEDS: DIVALPROEX SODIUM 500 MG DR TABLET PO SCH ×2 (08:03→20:57)
[2021-09-19] MEDS: PROPRANOLOL HCL 20 MG TABLET PO SCH ×2 (08:03→17:12)
[2021-09-19] MEDS: MULTIVITAMINS WITH MINERALS, THERAPEUTIC TABLET PO SCH (08:04)
[2021-09-19] MEDS: LORazepam 2 MG TABLET PO PRN ×2 (08:05→18:27)
[2021-09-19 09:45] VITALS: BP 91/56
[2021-09-19 16:34] VITALS: BP 115/76
[2021-09-19] MEDS: HALOPERIDOL 5 MG TABLET PO PRN (18:27)
[2021-09-20] MEDS: MULTIVITAMINS WITH MINERALS, THERAPEUTIC TABLET PO SCH (08:20)
[2021-09-20] MEDS: DIVALPROEX SODIUM 500 MG DR TABLET PO SCH ×2 (08:20→20:31)
[2021-09-20] MEDS: LORATADINE 10 MG TABLET PO SCH (08:20)
[2021-09-20] MEDS: PROPRANOLOL HCL 20 MG TABLET PO SCH ×2 (08:21→16:46)
[2021-09-20] MEDS: RisperiDONE 3 MG TABLET PO SCH ×2 (08:21→20:31)
[2021-09-20 08:28] VITALS: BP 102/65
[2021-09-20 16:27] VITALS: BP 121/75
[2021-09-20] MEDS: HALOPERIDOL 5 MG TABLET PO PRN (16:46)
[2021-09-20] MEDS: LORazepam 2 MG TABLET PO PRN (16:47)
[2021-09-21] MEDS: LORATADINE 10 MG TABLET PO SCH (08:28)
[2021-09-21] MEDS: DIVALPROEX SODIUM 500 MG DR TABLET PO SCH ×2 (08:28→20:50)
[2021-09-21] MEDS: PROPRANOLOL HCL 20 MG TABLET PO SCH ×2 (08:28→16:50)
[2021-09-21] MEDS: LORazepam 2 MG TABLET PO PRN ×2 (08:28→16:51)
[2021-09-21] MEDS: MULTIVITAMINS WITH MINERALS, THERAPEUTIC TABLET PO SCH (08:28)
[2021-09-21] MEDS: RisperiDONE 3 MG TABLET PO SCH ×2 (08:28→20:50)
[2021-09-21 08:29] VITALS: BP 118/75
[2021-09-21 16:21] VITALS: BP 110/70
[2021-09-21] MEDS: HALOPERIDOL 5 MG TABLET PO PRN (16:51)
[2021-09-22 08:00] VITALS: BP 95/63
[2021-09-22] MEDS: LORATADINE 10 MG TABLET PO SCH (08:40)
[2021-09-22] MEDS: LORazepam 2 MG TABLET PO PRN (08:40)
[2021-09-22] MEDS: MULTIVITAMINS WITH MINERALS, THERAPEUTIC TABLET PO SCH (08:40)
[2021-09-22] MEDS: PROPRANOLOL HCL 20 MG TABLET PO SCH ×2 (08:40→16:28)
[2021-09-22] MEDS: RisperiDONE 3 MG TABLET PO SCH ×2 (08:40→20:23)
[2021-09-22] MEDS: DIVALPROEX SODIUM 500 MG DR TABLET PO SCH ×2 (08:40→20:23)
[2021-09-22] MEDS: HALOPERIDOL 5 MG TABLET PO PRN (16:18)
[2021-09-22 16:28] VITALS: BP 100/78
[2021-09-23 05:14] VITALS: BP 110/80
[2021-09-23] MEDS: ACETAMINOPHEN 325 MG TABLET PO PRN (05:17)
[2021-09-23] MEDS: PROPRANOLOL HCL 20 MG TABLET PO SCH ×2 (10:22→16:07)
[2021-09-23] MEDS: LORATADINE 10 MG TABLET PO SCH (10:22)
[2021-09-23] MEDS: DIVALPROEX SODIUM 500 MG DR TABLET PO SCH ×2 (10:22→20:42)
[2021-09-23] MEDS: RisperiDONE 3 MG TABLET PO SCH ×2 (10:22→20:42)
[2021-09-23] MEDS: MULTIVITAMINS WITH MINERALS, THERAPEUTIC TABLET PO SCH (10:23)
[2021-09-23 16:14] VITALS: BP 128/71
[2021-09-24 08:05] LABS: COVID AG,FIA SOURCE NASAL SWAB
[2021-09-24] MEDS: LORazepam 2 MG TABLET PO PRN (08:32)
[2021-09-24] MEDS: LORATADINE 10 MG TABLET PO SCH (08:33)
[2021-09-24] MEDS: RisperiDONE 3 MG TABLET PO SCH ×2 (08:33→21:00)
[2021-09-24] MEDS: PROPRANOLOL HCL 20 MG TABLET PO SCH ×2 (08:33→16:07)
[2021-09-24] MEDS: MULTIVITAMINS WITH MINERALS, THERAPEUTIC TABLET PO SCH (08:34)
[2021-09-24] MEDS: DIVALPROEX SODIUM 500 MG DR TABLET PO SCH ×2 (09:00→21:00)
[2021-09-24 10:46] VITALS: BP 118/81
[2021-09-24 16:15] VITALS: BP 110/77
[2021-09-25 08:00] VITALS: BP 143/103
[2021-09-25] MEDS: PROPRANOLOL HCL 20 MG TABLET PO SCH ×2 (08:23→16:37)
[2021-09-25] MEDS: DIVALPROEX SODIUM 500 MG DR TABLET PO SCH ×2 (08:23→20:38)
[2021-09-25] MEDS: MULTIVITAMINS WITH MINERALS, THERAPEUTIC TABLET PO SCH (08:23)
[2021-09-25] MEDS: LORATADINE 10 MG TABLET PO SCH (08:23)
[2021-09-25] MEDS: RisperiDONE 3 MG TABLET PO SCH ×2 (08:23→20:38)
[2021-09-25 16:12] VITALS: BP 143/88
[2021-09-25] MEDS: LORazepam 2 MG TABLET PO PRN (16:38)
[2021-09-25] MEDS: HALOPERIDOL 5 MG TABLET PO PRN (16:38)
[2021-09-26 08:00] VITALS: BP 101/60
[2021-09-26] MEDS: DIVALPROEX SODIUM 500 MG DR TABLET PO SCH ×2 (10:08→20:22)
[2021-09-26] MEDS: RisperiDONE 3 MG TABLET PO SCH ×2 (10:08→20:23)
[2021-09-26] MEDS: LORATADINE 10 MG TABLET PO SCH (10:08)
[2021-09-26] MEDS: MULTIVITAMINS WITH MINERALS, THERAPEUTIC TABLET PO SCH (10:08)
[2021-09-26] MEDS: PROPRANOLOL HCL 20 MG TABLET PO SCH ×2 (10:08→16:02)
[2021-09-26] MEDS: LORazepam 2 MG TABLET PO PRN (11:35)
[2021-09-26 17:39] VITALS: BP 97/64
[2021-09-27 08:00] VITALS: BP 121/81
[2021-09-27] MEDS: DIVALPROEX SODIUM 500 MG DR TABLET PO SCH ×2 (08:05→20:04)
[2021-09-27] MEDS: LORazepam 2 MG TABLET PO PRN (08:05)
[2021-09-27] MEDS: MULTIVITAMINS WITH MINERALS, THERAPEUTIC TABLET PO SCH (08:05)
[2021-09-27] MEDS: NICOTINE 21 MG/24 HOUR PATCH TD PRN (08:05)
[2021-09-27] MEDS: RisperiDONE 3 MG TABLET PO SCH ×2 (08:05→20:04)
[2021-09-27] MEDS: RisperiDONE MICROSPHERES 50 MG/2 ML SYRINGE IM SCH (08:05)
[2021-09-27] MEDS: PROPRANOLOL HCL 20 MG TABLET PO SCH ×2 (08:08→17:28)
[2021-09-27] MEDS: LORATADINE 10 MG TABLET PO SCH (08:08)
[2021-09-27 16:09] VITALS: BP 122/75
[2021-09-28] MEDS: ZOLPIDEM TARTRATE 10 MG TABLET PO PRN (00:14)
[2021-09-28 08:00] VITALS: BP 109/72
[2021-09-28] MEDS: PROPRANOLOL HCL 20 MG TABLET PO SCH ×2 (09:15→16:59)
[2021-09-28] MEDS: MULTIVITAMINS WITH MINERALS, THERAPEUTIC TABLET PO SCH (09:15)
[2021-09-28] MEDS: LORazepam 2 MG TABLET PO PRN ×2 (09:15→18:14)
[2021-09-28] MEDS: LORATADINE 10 MG TABLET PO SCH (09:15)
[2021-09-28] MEDS: DIVALPROEX SODIUM 500 MG DR TABLET PO SCH ×2 (09:15→20:09)
[2021-09-28] MEDS: RisperiDONE 3 MG TABLET PO SCH ×2 (09:15→20:09)
[2021-09-28] MEDS ORDERED: TUBERCULIN, PURIFIED PROTEIN DERIVATIVE 5 TU/0.1 ML SYRINGE ID ONE (13:30)
[2021-09-28 16:45] VITALS: BP 103/56
[2021-09-29 08:00] VITALS: BP 79/46
[2021-09-29] MEDS: RisperiDONE 3 MG TABLET PO SCH ×2 (09:14→20:31)
[2021-09-29] MEDS: MULTIVITAMINS WITH MINERALS, THERAPEUTIC TABLET PO SCH (09:14)
[2021-09-29] MEDS: PROPRANOLOL HCL 20 MG TABLET PO SCH ×2 (09:14→16:50)
[2021-09-29] MEDS: DIVALPROEX SODIUM 500 MG DR TABLET PO SCH ×2 (09:14→20:31)
[2021-09-29] MEDS: LORATADINE 10 MG TABLET PO SCH (09:14)
[2021-09-29] MEDS: LORazepam 2 MG TABLET PO PRN ×2 (11:40→16:50)
[2021-09-29 12:00] VITALS: BP 99/67
[2021-09-29 16:02] VITALS: BP 93/60
[2021-09-30] MEDS: DIVALPROEX SODIUM 500 MG DR TABLET PO SCH ×2 (09:22→21:14)
[2021-09-30] MEDS: RisperiDONE 3 MG TABLET PO SCH ×2 (09:22→21:14)
[2021-09-30] MEDS: PROPRANOLOL HCL 20 MG TABLET PO SCH ×2 (09:22→17:02)
[2021-09-30] MEDS: MULTIVITAMINS WITH MINERALS, THERAPEUTIC TABLET PO SCH (09:22)
[2021-09-30] MEDS: LORATADINE 10 MG TABLET PO SCH (09:23)
[2021-09-30] MEDS ORDERED: TUBERCULIN, PURIFIED PROTEIN DERIVATIVE 5 TU/0.1 ML SYRINGE ID ONE (11:15)
[2021-09-30] MEDS: LORazepam 2 MG TABLET PO PRN ×2 (13:07→18:00)
[2021-09-30] MEDS: NICOTINE 21 MG/24 HOUR PATCH TD PRN (13:08)
[2021-09-30 16:32] VITALS: BP 101/61
[2021-09-30 17:03] VITALS: BP 110/66
[2021-09-30] MEDS: ACETAMINOPHEN 325 MG TABLET PO PRN (17:03)
[2021-10-01 08:00] VITALS: BP 96/59
[2021-10-01 08:11] LABS: COVID AG,FIA SOURCE NASAL SWAB
[2021-10-01] MEDS: MULTIVITAMINS WITH MINERALS, THERAPEUTIC TABLET PO SCH (10:02)
[2021-10-01] MEDS: LORATADINE 10 MG TABLET PO SCH (10:02)
[2021-10-01] MEDS: PROPRANOLOL HCL 20 MG TABLET PO SCH ×2 (10:03→16:42)
[2021-10-01] MEDS: DIVALPROEX SODIUM 500 MG DR TABLET PO SCH ×2 (10:03→20:33)
[2021-10-01] MEDS: RisperiDONE 3 MG TABLET PO SCH ×2 (10:03→20:33)
[2021-10-01] MEDS: LORazepam 2 MG TABLET PO PRN ×2 (11:14→15:41)
[2021-10-01 15:41] VITALS: BP 118/77
[2021-10-01 16:13] VITALS: BP 118/77
[2021-10-02] MEDS: PROPRANOLOL HCL 20 MG TABLET PO SCH ×2 (09:12→16:25)
[2021-10-02] MEDS: MULTIVITAMINS WITH MINERALS, THERAPEUTIC TABLET PO SCH (09:13)
[2021-10-02] MEDS: DIVALPROEX SODIUM 500 MG DR TABLET PO SCH ×2 (09:13→20:21)
[2021-10-02] MEDS: RisperiDONE 3 MG TABLET PO SCH ×2 (09:13→20:21)
[2021-10-02] MEDS: LORATADINE 10 MG TABLET PO SCH (09:14)
[2021-10-02] MEDS: NICOTINE 21 MG/24 HOUR PATCH TD PRN (09:18)
[2021-10-02] MEDS: LORazepam 2 MG TABLET PO PRN ×2 (11:00→16:00)
[2021-10-02 16:33] VITALS: BP 110/73
[2021-10-03 08:30] VITALS: BP 117/80
[2021-10-03] MEDS: MULTIVITAMINS WITH MINERALS, THERAPEUTIC TABLET PO SCH (08:33)
[2021-10-03] MEDS: LORATADINE 10 MG TABLET PO SCH (08:33)
[2021-10-03] MEDS: DIVALPROEX SODIUM 500 MG DR TABLET PO SCH ×2 (08:33→20:28)
[2021-10-03] MEDS: RisperiDONE 3 MG TABLET PO SCH ×2 (08:33→20:28)
[2021-10-03] MEDS: PROPRANOLOL HCL 20 MG TABLET PO SCH ×2 (08:33→17:25)
[2021-10-03] MEDS: LORazepam 2 MG TABLET PO PRN ×2 (10:43→17:00)
[2021-10-03 16:24] VITALS: BP 100/67
[2021-10-04 08:21] VITALS: BP 118/71
[2021-10-04] MEDS: RisperiDONE 3 MG TABLET PO SCH ×2 (08:34→20:34)
[2021-10-04] MEDS: MULTIVITAMINS WITH MINERALS, THERAPEUTIC TABLET PO SCH (08:34)
[2021-10-04] MEDS: PROPRANOLOL HCL 20 MG TABLET PO SCH ×2 (08:34→16:25)
[2021-10-04] MEDS: LORATADINE 10 MG TABLET PO SCH (08:34)
[2021-10-04] MEDS: DIVALPROEX SODIUM 500 MG DR TABLET PO SCH ×2 (08:34→20:35)
[2021-10-04] MEDS: LORazepam 2 MG TABLET PO PRN ×2 (08:42→18:00)
[2021-10-04 16:17] VITALS: BP 106/68
[2021-10-04] MEDS: HALOPERIDOL 5 MG TABLET PO PRN (16:30)
[2021-10-05 09:23] VITALS: BP 119/77
[2021-10-05] MEDS: RisperiDONE 3 MG TABLET PO SCH ×2 (09:24→20:07)
[2021-10-05] MEDS: MULTIVITAMINS WITH MINERALS, THERAPEUTIC TABLET PO SCH (09:24)
[2021-10-05] MEDS: LORazepam 2 MG TABLET PO PRN (09:24)
[2021-10-05] MEDS: DIVALPROEX SODIUM 500 MG DR TABLET PO SCH ×2 (09:24→20:08)
[2021-10-05] MEDS: PROPRANOLOL HCL 20 MG TABLET PO SCH ×2 (09:24→16:09)
[2021-10-05] MEDS: NICOTINE 21 MG/24 HOUR PATCH TD PRN (09:24)
[2021-10-05] MEDS: LORATADINE 10 MG TABLET PO SCH (09:25)
[2021-10-05 16:22] VITALS: BP 135/87
[2021-10-06] MEDS: LORATADINE 10 MG TABLET PO SCH (07:54)
[2021-10-06] MEDS: DIVALPROEX SODIUM 500 MG DR TABLET PO SCH ×2 (07:54→20:10)
[2021-10-06] MEDS: PROPRANOLOL HCL 20 MG TABLET PO SCH ×2 (07:54→16:01)
[2021-10-06] MEDS: RisperiDONE 3 MG TABLET PO SCH ×2 (07:54→20:10)
[2021-10-06] MEDS: MULTIVITAMINS WITH MINERALS, THERAPEUTIC TABLET PO SCH (07:54)
[2021-10-06] MEDS: HALOPERIDOL 5 MG TABLET PO PRN (07:56)
[2021-10-06] MEDS: NICOTINE 21 MG/24 HOUR PATCH TD PRN (07:59)
[2021-10-06 08:00] VITALS: BP 108/75
[2021-10-06] MEDS: LORazepam 2 MG TABLET PO PRN (10:58)
[2021-10-06 16:17] VITALS: BP 125/87
[2021-10-07] MEDS: NICOTINE 21 MG/24 HOUR PATCH TD PRN (08:29)
[2021-10-07 08:34] VITALS: BP 105/72
[2021-10-07] MEDS: PROPRANOLOL HCL 20 MG TABLET PO SCH ×2 (08:34→16:06)
[2021-10-07] MEDS: DIVALPROEX SODIUM 500 MG DR TABLET PO SCH ×2 (08:34→20:03)
[2021-10-07] MEDS: MULTIVITAMINS WITH MINERALS, THERAPEUTIC TABLET PO SCH (08:34)
[2021-10-07] MEDS: RisperiDONE 3 MG TABLET PO SCH ×2 (08:34→20:07)
[2021-10-07] MEDS: LORATADINE 10 MG TABLET PO SCH (08:35)
[2021-10-07 16:30] VITALS: BP 138/95
[2021-10-07] MEDS ORDERED: DiphenhydrAMINE HCL 50 MG/ML VIAL IM ONE (16:45)
[2021-10-08 06:32] LABS: COVID AG,FIA SOURCE NASAL SWAB
[2021-10-08] MEDS: MULTIVITAMINS WITH MINERALS, THERAPEUTIC TABLET PO SCH (08:49)
[2021-10-08] MEDS: LORATADINE 10 MG TABLET PO SCH (08:49)
[2021-10-08] MEDS: DIVALPROEX SODIUM 500 MG DR TABLET PO SCH ×2 (08:49→20:12)
[2021-10-08] MEDS: LORazepam 2 MG TABLET PO PRN (08:49)
[2021-10-08] MEDS: RisperiDONE 3 MG TABLET PO SCH (08:49)
[2021-10-08] MEDS: BENZTROPINE MESYLATE 1 MG TABLET PO SCH ×2 (08:50→16:00)
[2021-10-08] MEDS: PROPRANOLOL HCL 20 MG TABLET PO SCH ×2 (08:50→16:00)
[2021-10-08 08:57] LABS: ALANINE AMINOTRANSFERASE 18 U/L (12-78); ALBUMIN 3.5 g/dL (3.4-5.0); ALKALINE PHOSPHATASE 70 U/L (46-116); ANION GAP 7 mmol/L (8-16); ASPARTATE AMINOTRANSFERASE 18 U/L (15-37); BILIRUBIN,TOTAL 0.5 mg/dL (0.1-1.0); CALCIUM, TOTAL 8.7 mg/dL (8.8-10.5); CARBON DIOXIDE 27 mmol/L (22-29); CHLORIDE 103 mmol/L (98-107); CHOL/HDL RATIO 3.7 (3.9-5.7); CHOLESTEROL 189 mg/dL (131-200); GLOMERULAR FILTR. RATE CALC > 60 mL/min (>60); GLUCOSE,RANDOM 91 mg/dL (70-110); HDL CHOLESTEROL 51 mg/dL (40-60); LDL CHOL (CALC.) 118 mg/dL (0-130); PHOSPHORUS 3.9 mg/dL (2.5-4.9); POTASSIUM 4.3 mmol/L (3.5-5.1); SODIUM SERUM 137 mmol/L (136-145); THYROID STIMULATING HORMONE 2.63 uIU/mL (0.36-3.74); TOTAL PROTEIN, SERUM 7.2 g/dL (6.4-8.2); TRIGLYCERIDES 98 mg/dL (15-150); UREA NITROGEN, BLOOD 11 mg/dL (7-18)
[2021-10-08 08:57] LABS: BASOPHILS % (AUTO) 0.5 % (0.0-2.0); HEMATOCRIT 42.6 % (36-46); HEMOGLOBIN 14.4 g/dL (12.0-16.0); LYMPHOCYTES # (AUTO) 1.7 K/uL (1.0-4.8); LYMPHOCYTES % (AUTO) 25.9 % (22.0-44.0); MEAN CORPUSCULAR HEMOGLOBIN 30.6 pg (26.0-34.0); MEAN CORPUSCULAR HGB CONC 33.8 G/dL (31.0-37.0); MEAN CORPUSCULAR VOLUME 90 fL (80-100); MONOCYTES # (AUTO) 0.7 K/uL (0.1-1.0); MONOCYTES % (AUTO) 10.3 % (2.0-9.0); NEUTROPHILS # (AUTO) 3.9 K/uL (1.8-7.7); NEUTROPHILS % (AUTO) 59.3 % (40.0-70.0); PLATELET COUNT (AUTO) 170 K/uL (150-450); RED BLOOD CELL COUNT(AUTO) 4.71 MIL/uL (4.00-5.20); RED CELL DISTRIBUTION WIDTH 13.9 % (11.5-14.5)
[2021-10-08 09:44] VITALS: BP 99/64
[2021-10-08 16:25] VITALS: BP 133/85
[2021-10-08] MEDS ORDERED: DiphenhydrAMINE HCL 50 MG/ML VIAL IM ONE (16:30)
[2021-10-08] MEDS: NICOTINE 21 MG/24 HOUR PATCH TD PRN (20:42)
[2021-10-09] MEDS: LORATADINE 10 MG TABLET PO SCH (07:59)
[2021-10-09] MEDS: BENZTROPINE MESYLATE 1 MG TABLET PO SCH ×2 (07:59→16:35)
[2021-10-09] MEDS: LORazepam 2 MG TABLET PO PRN ×2 (07:59→15:45)
[2021-10-09] MEDS: MULTIVITAMINS WITH MINERALS, THERAPEUTIC TABLET PO SCH (07:59)
[2021-10-09] MEDS: DIVALPROEX SODIUM 500 MG DR TABLET PO SCH ×2 (08:00→20:27)
[2021-10-09] MEDS: PROPRANOLOL HCL 20 MG TABLET PO SCH ×2 (08:00→16:35)
[2021-10-09 08:38] VITALS: BP 123/72
[2021-10-09] MEDS: NICOTINE 21 MG/24 HOUR PATCH TD PRN (16:34)
[2021-10-09 17:41] VITALS: BP 125/67
[2021-10-10] MEDS: BENZTROPINE MESYLATE 1 MG TABLET PO SCH ×2 (08:47→16:39)
[2021-10-10] MEDS: DIVALPROEX SODIUM 500 MG DR TABLET PO SCH ×2 (08:47→20:26)
[2021-10-10] MEDS: LORATADINE 10 MG TABLET PO SCH (08:47)
[2021-10-10] MEDS: MULTIVITAMINS WITH MINERALS, THERAPEUTIC TABLET PO SCH (08:48)
[2021-10-10] MEDS: PROPRANOLOL HCL 20 MG TABLET PO SCH ×2 (08:48→16:19)
[2021-10-10 10:39] VITALS: BP 97/60
[2021-10-10] MEDS: LORazepam 2 MG TABLET PO PRN (10:43)
[2021-10-10 16:38] VITALS: BP 100/68
[2021-10-11] MEDS: LORATADINE 10 MG TABLET PO SCH (09:58)
[2021-10-11] MEDS: BENZTROPINE MESYLATE 1 MG TABLET PO SCH ×2 (09:58→15:52)
[2021-10-11] MEDS: MULTIVITAMINS WITH MINERALS, THERAPEUTIC TABLET PO SCH (09:58)
[2021-10-11] MEDS: DIVALPROEX SODIUM 500 MG DR TABLET PO SCH (09:58)
[2021-10-11] MEDS: PROPRANOLOL HCL 20 MG TABLET PO SCH ×2 (09:58→15:52)
[2021-10-11] MEDS: RisperiDONE MICROSPHERES 50 MG/2 ML SYRINGE IM SCH (10:16)
[2021-10-11 14:35] VITALS: BP 89/58
[2021-10-11 16:44] VITALS: BP 102/69
[2021-10-12 08:30] VITALS: BP 96/65
[2021-10-12] MEDS: BENZTROPINE MESYLATE 1 MG TABLET PO SCH ×2 (09:11→16:35)
[2021-10-12] MEDS: LORATADINE 10 MG TABLET PO SCH (09:12)
[2021-10-12] MEDS: PROPRANOLOL HCL 20 MG TABLET PO SCH ×2 (09:12→16:36)
[2021-10-12] MEDS: MULTIVITAMINS WITH MINERALS, THERAPEUTIC TABLET PO SCH (09:12)
[2021-10-12] MEDS: LORazepam 2 MG TABLET PO PRN ×2 (13:35→19:05)
[2021-10-12] MEDS: NICOTINE 21 MG/24 HOUR PATCH TD PRN (14:44)
[2021-10-12 16:18] VITALS: BP 105/71
[2021-10-12] MEDS: HALOPERIDOL 5 MG TABLET PO PRN (19:05)
[2021-10-13 08:52] VITALS: BP 101/72
[2021-10-13] MEDS: PROPRANOLOL HCL 20 MG TABLET PO SCH ×2 (09:22→16:45)
[2021-10-13] MEDS: BENZTROPINE MESYLATE 1 MG TABLET PO SCH ×2 (09:24→16:44)
[2021-10-13] MEDS: LORATADINE 10 MG TABLET PO SCH (09:24)
[2021-10-13] MEDS: MULTIVITAMINS WITH MINERALS, THERAPEUTIC TABLET PO SCH (09:24)
[2021-10-13 16:01] VITALS: BP 127/79
[2021-10-13] MEDS: LORazepam 2 MG TABLET PO PRN (16:45)
[2021-10-13] MEDS: HALOPERIDOL 5 MG TABLET PO PRN (16:45)
[2021-10-14] MEDS: PROPRANOLOL HCL 20 MG TABLET PO SCH ×2 (08:49→16:20)
[2021-10-14] MEDS: BENZTROPINE MESYLATE 1 MG TABLET PO SCH ×2 (08:49→16:20)
[2021-10-14] MEDS: LORATADINE 10 MG TABLET PO SCH (08:49)
[2021-10-14] MEDS: MULTIVITAMINS WITH MINERALS, THERAPEUTIC TABLET PO SCH (08:50)
[2021-10-14] MEDS: NICOTINE 21 MG/24 HOUR PATCH TD PRN (10:31)
[2021-10-14 16:00] VITALS: BP 133/88
[2021-10-14] MEDS: LORazepam 2 MG TABLET PO PRN (17:57)
[2021-10-14] MEDS: HALOPERIDOL 5 MG TABLET PO PRN (17:58)
[2021-10-15 08:00] VITALS: BP 125/84
[2021-10-15 08:27] LABS: COVID AG,FIA SOURCE NASAL SWAB
[2021-10-15] MEDS: LORATADINE 10 MG TABLET PO SCH (08:48)
[2021-10-15] MEDS: BENZTROPINE MESYLATE 1 MG TABLET PO SCH ×2 (08:48→16:56)
[2021-10-15] MEDS: PROPRANOLOL HCL 20 MG TABLET PO SCH ×2 (08:48→16:56)
[2021-10-15] MEDS: MULTIVITAMINS WITH MINERALS, THERAPEUTIC TABLET PO SCH (08:48)
[2021-10-15] MEDS: LORazepam 2 MG TABLET PO PRN ×2 (11:27→16:56)
[2021-10-15] MEDS ORDERED: DiphenhydrAMINE HCL 50 MG/ML VIAL IM ONE (11:45)
[2021-10-15] MEDS ORDERED: DiphenhydrAMINE HCL 50 MG/ML VIAL ONE (11:45)
[2021-10-15 16:00] VITALS: BP 116/66
[2021-10-15 16:56] VITALS: BP 116/66
[2021-10-15] MEDS: ACETAMINOPHEN 325 MG TABLET PO PRN (16:56)
[2021-10-16 08:25] VITALS: BP 147/79
[2021-10-16] MEDS: MULTIVITAMINS WITH MINERALS, THERAPEUTIC TABLET PO SCH (08:58)
[2021-10-16] MEDS: LORATADINE 10 MG TABLET PO SCH (08:58)
[2021-10-16] MEDS: NICOTINE 21 MG/24 HOUR PATCH TD PRN (08:58)
[2021-10-16] MEDS: PROPRANOLOL HCL 20 MG TABLET PO SCH ×2 (08:58→16:38)
[2021-10-16] MEDS: BENZTROPINE MESYLATE 1 MG TABLET PO SCH (08:58)
[2021-10-16] MEDS: LORazepam 2 MG TABLET PO PRN ×2 (12:07→16:38)
[2021-10-16] MEDS ORDERED: DiphenhydrAMINE HCL 25 MG CAPSULE PO ONE (13:30)
[2021-10-16 16:25] VITALS: BP 106/72
[2021-10-16] MEDS: BENZTROPINE MESYLATE 2 MG TABLET PO SCH (16:38)
[2021-10-16] MEDS: HALOPERIDOL 5 MG TABLET PO PRN (16:38)
[2021-10-17] MEDS: MULTIVITAMINS WITH MINERALS, THERAPEUTIC TABLET PO SCH (08:53)
[2021-10-17] MEDS: LORATADINE 10 MG TABLET PO SCH (08:53)
[2021-10-17] MEDS: LORazepam 2 MG TABLET PO PRN ×3 (08:53→18:10)
[2021-10-17] MEDS: BENZTROPINE MESYLATE 2 MG TABLET PO SCH ×2 (08:53→16:57)
[2021-10-17] MEDS: PROPRANOLOL HCL 20 MG TABLET PO SCH ×2 (09:03→16:58)
[2021-10-17 16:30] VITALS: BP 110/64
[2021-10-17] MEDS: HALOPERIDOL 5 MG TABLET PO PRN (18:10)
[2021-10-18 08:15] VITALS: BP 115/65
[2021-10-18] MEDS: HALOPERIDOL 5 MG TABLET PO PRN ×2 (08:16→16:40)
[2021-10-18] MEDS: LORazepam 2 MG TABLET PO PRN ×3 (08:16→16:40)
[2021-10-18] MEDS: LORATADINE 10 MG TABLET PO SCH (08:16)
[2021-10-18] MEDS: MULTIVITAMINS WITH MINERALS, THERAPEUTIC TABLET PO SCH (08:16)
[2021-10-18] MEDS: BENZTROPINE MESYLATE 2 MG TABLET PO SCH ×2 (08:16→16:39)
[2021-10-18] MEDS: PROPRANOLOL HCL 20 MG TABLET PO SCH ×2 (08:19→16:39)
[2021-10-18 08:21] VITALS: BP 93/59
[2021-10-18] MEDS: NICOTINE 21 MG/24 HOUR PATCH TD PRN (09:09)
[2021-10-18 17:07] VITALS: BP 98/64
[2021-10-19] MEDS: BENZTROPINE MESYLATE 2 MG TABLET PO SCH ×2 (08:01→16:38)
[2021-10-19] MEDS: LORATADINE 10 MG TABLET PO SCH (08:01)
[2021-10-19] MEDS: PROPRANOLOL HCL 20 MG TABLET PO SCH ×2 (08:01→16:37)
[2021-10-19] MEDS: MULTIVITAMINS WITH MINERALS, THERAPEUTIC TABLET PO SCH (08:01)
[2021-10-19] MEDS: NICOTINE 21 MG/24 HOUR PATCH TD PRN (08:01)
[2021-10-19 08:28] VITALS: BP 100/68
[2021-10-19] MEDS: LORazepam 2 MG TABLET PO PRN ×2 (09:03→16:38)
[2021-10-19] MEDS: IBUPROFEN 600 MG TABLET PO PRN (12:30)
[2021-10-19 16:30] VITALS: BP 94/65
[2021-10-19] MEDS: HALOPERIDOL 5 MG TABLET PO PRN (16:38)
[2021-10-19] MEDS: ZOLPIDEM TARTRATE 10 MG TABLET PO PRN (20:00)
[2021-10-20] MEDS: BENZTROPINE MESYLATE 2 MG TABLET PO SCH ×2 (07:57→16:31)
[2021-10-20] MEDS: MULTIVITAMINS WITH MINERALS, THERAPEUTIC TABLET PO SCH (07:57)
[2021-10-20] MEDS: LORazepam 2 MG TABLET PO PRN ×3 (07:57→16:31)
[2021-10-20] MEDS: PROPRANOLOL HCL 20 MG TABLET PO SCH ×2 (07:57→16:31)
[2021-10-20] MEDS: LORATADINE 10 MG TABLET PO SCH (07:57)
[2021-10-20 09:25] VITALS: BP 111/65
[2021-10-20] MEDS: NICOTINE 21 MG/24 HOUR PATCH TD PRN (14:43)
[2021-10-20 16:24] VITALS: BP 98/69
[2021-10-20] MEDS: HALOPERIDOL 5 MG TABLET PO PRN (16:31)
[2021-10-20] MEDS: ZOLPIDEM TARTRATE 10 MG TABLET PO PRN (20:07)
[2021-10-21] MEDS: LORazepam 2 MG TABLET PO PRN ×3 (07:49→16:10)
[2021-10-21] MEDS: MULTIVITAMINS WITH MINERALS, THERAPEUTIC TABLET PO SCH (07:49)
[2021-10-21] MEDS: LORATADINE 10 MG TABLET PO SCH (07:49)
[2021-10-21] MEDS: PROPRANOLOL HCL 20 MG TABLET PO SCH ×2 (07:49→17:09)
[2021-10-21] MEDS: BENZTROPINE MESYLATE 2 MG TABLET PO SCH ×2 (07:50→16:10)
[2021-10-21 08:19] VITALS: BP 117/79
[2021-10-21] MEDS: NICOTINE 21 MG/24 HOUR PATCH TD PRN (12:41)
[2021-10-21 17:13] VITALS: BP 100/65
[2021-10-22] MEDS: ZOLPIDEM TARTRATE 10 MG TABLET PO PRN (01:10)
[2021-10-22] MEDS: LORATADINE 10 MG TABLET PO SCH (08:07)
[2021-10-22] MEDS: MULTIVITAMINS WITH MINERALS, THERAPEUTIC TABLET PO SCH (08:07)
[2021-10-22] MEDS: HALOPERIDOL 5 MG TABLET PO PRN (08:08)
[2021-10-22] MEDS: BENZTROPINE MESYLATE 2 MG TABLET PO SCH ×2 (08:08→17:29)
[2021-10-22] MEDS: LORazepam 2 MG TABLET PO PRN ×3 (08:08→16:25)
[2021-10-22] MEDS: PROPRANOLOL HCL 20 MG TABLET PO SCH ×2 (08:08→17:29)
[2021-10-22 08:20] VITALS: BP 95/57
[2021-10-22] MEDS: NICOTINE 21 MG/24 HOUR PATCH TD PRN (14:13)
[2021-10-22 16:35] VITALS: BP 102/78
[2021-10-22] MEDS: ACETAMINOPHEN 325 MG TABLET PO PRN (16:35)
[2021-10-22 16:39] VITALS: BP 99/69
[2021-10-23] MEDS: ACETAMINOPHEN 325 MG TABLET PO PRN (03:51)
[2021-10-23] MEDS: PROPRANOLOL HCL 20 MG TABLET PO SCH ×2 (07:35→15:56)
[2021-10-23] MEDS: MULTIVITAMINS WITH MINERALS, THERAPEUTIC TABLET PO SCH (07:35)
[2021-10-23] MEDS: BENZTROPINE MESYLATE 2 MG TABLET PO SCH ×2 (07:35→15:56)
[2021-10-23] MEDS: LORazepam 2 MG TABLET PO PRN ×3 (07:35→16:20)
[2021-10-23] MEDS: LORATADINE 10 MG TABLET PO SCH (07:36)
[2021-10-23 08:22] VITALS: BP 119/69
[2021-10-23] MEDS: IBUPROFEN 600 MG TABLET PO PRN (14:46)
[2021-10-23] MEDS: NICOTINE 21 MG/24 HOUR PATCH TD PRN (16:18)
[2021-10-23 16:48] VITALS: BP 130/71
[2021-10-23] MEDS: ZOLPIDEM TARTRATE 10 MG TABLET PO PRN (20:26)
[2021-10-24] MEDS: PROPRANOLOL HCL 20 MG TABLET PO SCH ×2 (07:47→16:01)
[2021-10-24] MEDS: BENZTROPINE MESYLATE 2 MG TABLET PO SCH ×2 (07:47→16:01)
[2021-10-24] MEDS: MULTIVITAMINS WITH MINERALS, THERAPEUTIC TABLET PO SCH (07:47)
[2021-10-24] MEDS: LORATADINE 10 MG TABLET PO SCH (07:48)
[2021-10-24 08:35] VITALS: BP 132/85
[2021-10-24] MEDS: LORazepam 2 MG TABLET PO PRN (14:43)
[2021-10-24 17:12] VITALS: BP 119/73
[2021-10-24] MEDS: ZOLPIDEM TARTRATE 10 MG TABLET PO PRN (20:02)
[2021-10-25] MEDS: PROPRANOLOL HCL 20 MG TABLET PO SCH ×2 (07:33→16:58)
[2021-10-25] MEDS: RisperiDONE MICROSPHERES 25 MG/2 ML SYRINGE IM SCH (07:33)
[2021-10-25] MEDS: MULTIVITAMINS WITH MINERALS, THERAPEUTIC TABLET PO SCH (07:34)
[2021-10-25] MEDS: BENZTROPINE MESYLATE 2 MG TABLET PO SCH ×2 (07:34→16:20)
[2021-10-25] MEDS: LORazepam 2 MG TABLET PO PRN ×2 (07:37→15:55)
[2021-10-25 09:15] VITALS: BP 107/74
[2021-10-25] MEDS: NICOTINE 21 MG/24 HOUR PATCH TD PRN (16:05)
[2021-10-25 16:39] LABS: COVID AG,FIA SOURCE NASAL SWAB
[2021-10-25] MEDS ORDERED: DiphenhydrAMINE HCL 50 MG/ML VIAL IM ONE (16:45)
[2021-10-25 17:00] VITALS: BP 100/76
[2021-10-25] MEDS: ZOLPIDEM TARTRATE 10 MG TABLET PO PRN (20:06)
[2021-10-26] MEDS: LORazepam 2 MG TABLET PO PRN (07:45)
[2021-10-26] MEDS: PROPRANOLOL HCL 20 MG TABLET PO SCH ×2 (08:15→16:00)
[2021-10-26] MEDS: MULTIVITAMINS WITH MINERALS, THERAPEUTIC TABLET PO SCH (08:15)
[2021-10-26] MEDS: BENZTROPINE MESYLATE 2 MG TABLET PO SCH ×2 (08:15→16:00)
[2021-10-26 08:32] VITALS: BP 114/75
[2021-10-26 16:19] VITALS: BP 103/71
[2021-10-27 08:07] VITALS: BP 106/76
[2021-10-27] MEDS: BENZTROPINE MESYLATE 2 MG TABLET PO SCH ×2 (10:45→16:46)
[2021-10-27] MEDS: PROPRANOLOL HCL 20 MG TABLET PO SCH ×2 (10:45→16:46)
[2021-10-27] MEDS: LORazepam 2 MG TABLET PO PRN ×2 (10:45→16:46)
[2021-10-27] MEDS: MULTIVITAMINS WITH MINERALS, THERAPEUTIC TABLET PO SCH (10:45)
[2021-10-27 16:39] VITALS: BP 100/69
[2021-10-27] MEDS: HALOPERIDOL 5 MG TABLET PO PRN (16:46)
[2021-10-28 08:35] VITALS: BP 96/63
[2021-10-28] MEDS: LORazepam 2 MG TABLET PO PRN ×2 (09:32→16:47)
[2021-10-28] MEDS: MULTIVITAMINS WITH MINERALS, THERAPEUTIC TABLET PO SCH (09:32)
[2021-10-28] MEDS: PROPRANOLOL HCL 20 MG TABLET PO SCH ×2 (09:32→16:46)
[2021-10-28] MEDS: BENZTROPINE MESYLATE 2 MG TABLET PO SCH ×2 (09:32→16:46)
[2021-10-28 16:22] VITALS: BP 101/72
[2021-10-28] MEDS: HALOPERIDOL 5 MG TABLET PO PRN (16:47)
[2021-10-29] MEDS: MULTIVITAMINS WITH MINERALS, THERAPEUTIC TABLET PO SCH (09:16)
[2021-10-29] MEDS: PROPRANOLOL HCL 20 MG TABLET PO SCH ×2 (09:16→16:24)
[2021-10-29] MEDS: BENZTROPINE MESYLATE 2 MG TABLET PO SCH ×2 (09:16→16:25)
[2021-10-29] MEDS: LORazepam 2 MG TABLET PO PRN ×2 (09:16→16:25)
[2021-10-29 13:34] VITALS: BP 107/73
[2021-10-29 16:23] VITALS: BP 109/72
[2021-10-30] MEDS: BENZTROPINE MESYLATE 2 MG TABLET PO SCH ×2 (07:58→16:29)
[2021-10-30] MEDS: MULTIVITAMINS WITH MINERALS, THERAPEUTIC TABLET PO SCH (07:58)
[2021-10-30] MEDS: PROPRANOLOL HCL 20 MG TABLET PO SCH ×2 (07:58→16:29)
[2021-10-30] MEDS: LORazepam 2 MG TABLET PO PRN ×2 (07:58→16:29)
[2021-10-30 08:33] VITALS: BP 103/64
[2021-10-30 16:16] VITALS: BP 101/66
[2021-10-30] MEDS: HALOPERIDOL 5 MG TABLET PO PRN (16:29)
[2021-10-31 08:37] VITALS: BP 130/79
[2021-10-31] MEDS: LORazepam 2 MG TABLET PO PRN ×3 (08:55→19:14)
[2021-10-31] MEDS: PROPRANOLOL HCL 20 MG TABLET PO SCH ×2 (08:55→16:44)
[2021-10-31] MEDS: MULTIVITAMINS WITH MINERALS, THERAPEUTIC TABLET PO SCH (08:55)
[2021-10-31] MEDS: BENZTROPINE MESYLATE 2 MG TABLET PO SCH ×2 (08:56→16:44)
[2021-10-31 16:46] VITALS: BP 108/70
[2021-10-31 17:22] LABS: COVID AG,FIA SOURCE NASAL SWAB
[2021-10-31] MEDS: HALOPERIDOL 5 MG TABLET PO PRN (19:14)
[2021-11-01] MEDS: BENZTROPINE MESYLATE 2 MG TABLET PO SCH ×2 (08:19→16:45)
[2021-11-01] MEDS: MULTIVITAMINS WITH MINERALS, THERAPEUTIC TABLET PO SCH (08:19)
[2021-11-01] MEDS: PROPRANOLOL HCL 20 MG TABLET PO SCH ×2 (08:19→16:45)
[2021-11-01 08:31] VITALS: BP 104/68
[2021-11-01 09:25] VITALS: BP 124/67
[2021-11-01] MEDS: LORazepam 2 MG TABLET PO PRN ×3 (09:26→19:15)
[2021-11-01 13:28] VITALS: BP 113/86
[2021-11-01 16:22] VITALS: BP 106/74
[2021-11-01] MEDS: HALOPERIDOL 5 MG TABLET PO PRN (16:45)
[2021-11-02] MEDS: PROPRANOLOL HCL 20 MG TABLET PO SCH ×2 (08:00→16:40)
[2021-11-02] MEDS: MULTIVITAMINS WITH MINERALS, THERAPEUTIC TABLET PO SCH (08:00)
[2021-11-02] MEDS: LORazepam 2 MG TABLET PO PRN ×3 (08:00→19:50)
[2021-11-02] MEDS: BENZTROPINE MESYLATE 2 MG TABLET PO SCH ×2 (08:00→16:40)
[2021-11-02 08:25] VITALS: BP 95/57
[2021-11-02 16:32] VITALS: BP 108/69
[2021-11-02] MEDS: HALOPERIDOL 5 MG TABLET PO PRN (16:41)
[2021-11-03] MEDS: PROPRANOLOL HCL 20 MG TABLET PO SCH ×2 (08:35→16:07)
[2021-11-03] MEDS: LORazepam 2 MG TABLET PO PRN ×3 (08:35→17:10)
[2021-11-03] MEDS: BENZTROPINE MESYLATE 2 MG TABLET PO SCH ×2 (08:35→16:07)
[2021-11-03] MEDS: MULTIVITAMINS WITH MINERALS, THERAPEUTIC TABLET PO SCH (08:35)
[2021-11-03 09:09] VITALS: BP 97/64
[2021-11-03 16:41] VITALS: BP 117/79
[2021-11-03] MEDS: ZOLPIDEM TARTRATE 10 MG TABLET PO PRN (21:26)
[2021-11-04 08:32] VITALS: BP 107/67
[2021-11-04] MEDS: MULTIVITAMINS WITH MINERALS, THERAPEUTIC TABLET PO SCH (09:08)
[2021-11-04] MEDS: BENZTROPINE MESYLATE 2 MG TABLET PO SCH ×2 (09:08→16:36)
[2021-11-04] MEDS: PROPRANOLOL HCL 20 MG TABLET PO SCH ×2 (09:09→16:35)
[2021-11-04] MEDS: LORazepam 2 MG TABLET PO PRN (16:52)
[2021-11-04 17:06] VITALS: BP 106/73
[2021-11-04] MEDS: ZOLPIDEM TARTRATE 10 MG TABLET PO PRN (20:20)
[2021-11-05] MEDS: BENZTROPINE MESYLATE 2 MG TABLET PO SCH ×2 (07:53→16:14)
[2021-11-05] MEDS: MULTIVITAMINS WITH MINERALS, THERAPEUTIC TABLET PO SCH (07:53)
[2021-11-05] MEDS: PROPRANOLOL HCL 20 MG TABLET PO SCH ×2 (07:53→16:14)
[2021-11-05 09:01] VITALS: BP 103/72
[2021-11-05] MEDS: LORazepam 2 MG TABLET PO PRN ×2 (12:28→16:41)
[2021-11-05 16:38] VITALS: BP 108/68
[2021-11-06] MEDS: ZOLPIDEM TARTRATE 10 MG TABLET PO PRN (01:14)
[2021-11-06 08:21] VITALS: BP 106/58
[2021-11-06] MEDS: LORazepam 2 MG TABLET PO PRN ×3 (08:43→19:00)
[2021-11-06] MEDS: PROPRANOLOL HCL 20 MG TABLET PO SCH ×2 (08:43→16:45)
[2021-11-06] MEDS: BENZTROPINE MESYLATE 2 MG TABLET PO SCH ×2 (08:43→16:45)
[2021-11-06] MEDS: MULTIVITAMINS WITH MINERALS, THERAPEUTIC TABLET PO SCH (08:43)
[2021-11-06] MEDS: HALOPERIDOL 5 MG TABLET PO PRN (16:45)
[2021-11-06 17:08] VITALS: BP 105/70
[2021-11-07 08:00] VITALS: BP 135/89
[2021-11-07] MEDS: MULTIVITAMINS WITH MINERALS, THERAPEUTIC TABLET PO SCH (08:50)
[2021-11-07] MEDS: PROPRANOLOL HCL 20 MG TABLET PO SCH ×2 (08:50→16:36)
[2021-11-07] MEDS: LORazepam 2 MG TABLET PO PRN ×2 (08:50→13:36)
[2021-11-07] MEDS: BENZTROPINE MESYLATE 2 MG TABLET PO SCH ×2 (08:50→16:36)
[2021-11-07 08:58] LABS: COVID AG,FIA SOURCE NASOPHARYNGEAL
[2021-11-07 13:06] LABS: APPEARANCE,URINE HAZY (CLEAR); BILIRUBIN,URINE NEGATIVE (NEGATIVE); GLUCOSE, URINE (UA) NEGATIVE (NEGATIVE); KETONES,URINE NEGATIVE (NEGATIVE); LEUKOCYTE ESTERASE ,URINE NEGATIVE (NEGATIVE); NITRATE,URINE NEGATIVE (NEGATIVE); OCCULT BLOOD,URINE NEGATIVE (NEGATIVE); PH,URINE 7.5 (5.0-8.0); PROTEIN,URINE TRACE mg/dL (NEGATIVE); SPECIFIC GRAVITIY, URINE 1.016 (1.003-1.030); UROBILINOGEN,URINE <=1.0 mg/dL (<=1.0)
[2021-11-07 13:16] LABS: BACTERIA,URINE Few /HPF (None Seen); RBC,URINE None Seen /HPF (0-2); SQUAMOUS EPITHELIAL CELL,UR Moderate /LPF (None Seen); WBC,URINE 0-2 /HPF (0-5)
[2021-11-07 16:57] VITALS: BP 102/64
[2021-11-07] MEDS: ZOLPIDEM TARTRATE 10 MG TABLET PO PRN (21:14)
[2021-11-08] MEDS: BENZTROPINE MESYLATE 2 MG TABLET PO SCH ×2 (08:02→16:39)
[2021-11-08] MEDS: LORazepam 2 MG TABLET PO PRN ×2 (08:02→16:39)
[2021-11-08] MEDS: MULTIVITAMINS WITH MINERALS, THERAPEUTIC TABLET PO SCH (08:02)
[2021-11-08 08:30] VITALS: BP 106/63
[2021-11-08] MEDS: PROPRANOLOL HCL 20 MG TABLET PO SCH ×2 (08:53→16:40)
[2021-11-08] MEDS: RisperiDONE MICROSPHERES 25 MG/2 ML SYRINGE IM SCH (08:54)
[2021-11-08] MEDS ORDERED: DiphenhydrAMINE HCL 50 MG/ML VIAL IM ONE (12:15)
[2021-11-08 16:28] VITALS: BP 90/60
[2021-11-08 16:39] VITALS: BP 109/66
[2021-11-08] MEDS: ZOLPIDEM TARTRATE 10 MG TABLET PO PRN (21:08)
[2021-11-09 09:36] VITALS: BP 90/58
[2021-11-09] MEDS: MULTIVITAMINS WITH MINERALS, THERAPEUTIC TABLET PO SCH (09:47)
[2021-11-09] MEDS: BENZTROPINE MESYLATE 2 MG TABLET PO SCH ×2 (09:48→16:29)
[2021-11-09 10:27] VITALS: BP 115/73
[2021-11-09] MEDS: PROPRANOLOL HCL 20 MG TABLET PO SCH ×2 (10:29→16:29)
[2021-11-09] MEDS: LORazepam 2 MG TABLET PO PRN ×2 (10:29→16:29)
[2021-11-09 16:18] VITALS: BP 109/69
[2021-11-09] MEDS: HALOPERIDOL 5 MG TABLET PO PRN (16:29)
[2021-11-09] MEDS: ZOLPIDEM TARTRATE 10 MG TABLET PO PRN (20:18)
[2021-11-10 08:21] VITALS: BP 109/72
[2021-11-10] MEDS: MULTIVITAMINS WITH MINERALS, THERAPEUTIC TABLET PO SCH (09:49)
[2021-11-10] MEDS: LORazepam 2 MG TABLET PO PRN ×2 (09:49→14:10)
[2021-11-10] MEDS: BENZTROPINE MESYLATE 2 MG TABLET PO SCH ×2 (09:49→16:04)
[2021-11-10] MEDS: PROPRANOLOL HCL 20 MG TABLET PO SCH ×2 (09:50→16:04)
[2021-11-10 16:09] VITALS: BP 105/74
[2021-11-10] MEDS: ZOLPIDEM TARTRATE 10 MG TABLET PO PRN (21:10)
[2021-11-11] MEDS: PROPRANOLOL HCL 20 MG TABLET PO SCH ×2 (08:17→16:07)
[2021-11-11] MEDS: MULTIVITAMINS WITH MINERALS, THERAPEUTIC TABLET PO SCH (08:18)
[2021-11-11] MEDS: BENZTROPINE MESYLATE 2 MG TABLET PO SCH ×2 (08:18→16:07)
[2021-11-11 08:30] VITALS: BP 92/55
[2021-11-11 08:34] LABS: BASOPHILS % (AUTO) 0.9 % (0.0-2.0); EOSINOPHILS % (AUTO) 5.6 % (1.0-6.0); HEMATOCRIT 41.3 % (36-46); HEMOGLOBIN 13.9 g/dL (12.0-16.0); LYMPHOCYTES # (AUTO) 1.9 K/uL (1.0-4.8); LYMPHOCYTES % (AUTO) 34.9 % (22.0-44.0); MEAN CORPUSCULAR HGB CONC 33.6 G/dL (31.0-37.0); MEAN CORPUSCULAR VOLUME 92 fL (80-100); MONOCYTES # (AUTO) 0.5 K/uL (0.1-1.0); NEUTROPHILS # (AUTO) 2.7 K/uL (1.8-7.7); NEUTROPHILS % (AUTO) 49.6 % (40.0-70.0); PLATELET COUNT (AUTO) 214 K/uL (150-450); RED BLOOD CELL COUNT(AUTO) 4.48 MIL/uL (4.00-5.20); RED CELL DISTRIBUTION WIDTH 14.6 % (11.5-14.5)
[2021-11-11 08:48] LABS: ALANINE AMINOTRANSFERASE 22 U/L (12-78); ALBUMIN 3.5 g/dL (3.4-5.0); ALKALINE PHOSPHATASE 65 U/L (46-116); ANION GAP 6 mmol/L (8-16); ASPARTATE AMINOTRANSFERASE 13 U/L (15-37); BILIRUBIN,TOTAL 0.5 mg/dL (0.1-1.0); CALCIUM, TOTAL 8.5 mg/dL (8.8-10.5); CARBON DIOXIDE 25 mmol/L (22-29); CHLORIDE 107 mmol/L (98-107); CREATININE 0.86 mg/dL (0.60-1.30); GLOMERULAR FILTR. RATE CALC > 60 mL/min (>60); GLUCOSE,RANDOM 103 mg/dL (70-110); PHOSPHORUS 3.3 mg/dL (2.5-4.9); POTASSIUM 4.2 mmol/L (3.5-5.1); SODIUM SERUM 138 mmol/L (136-145); TOTAL PROTEIN, SERUM 7.1 g/dL (6.4-8.2); UREA NITROGEN, BLOOD 11 mg/dL (7-18)
[2021-11-11 12:01] VITALS: BP 101/69
[2021-11-11] MEDS: LORazepam 2 MG TABLET PO PRN ×2 (12:02→12:07)
[2021-11-11 16:11] VITALS: BP 106/72
[2021-11-12 08:00] VITALS: BP 102/71
[2021-11-12] MEDS: BENZTROPINE MESYLATE 2 MG TABLET PO SCH ×2 (08:05→16:10)
[2021-11-12] MEDS: MULTIVITAMINS WITH MINERALS, THERAPEUTIC TABLET PO SCH (08:05)
[2021-11-12] MEDS: LORazepam 2 MG TABLET PO PRN ×2 (08:05→16:10)
[2021-11-12] MEDS: PROPRANOLOL HCL 20 MG TABLET PO SCH ×2 (08:05→16:10)
[2021-11-12 16:10] VITALS: BP 128/81
[2021-11-12 20:21] VITALS: BP 126/80
[2021-11-12] MEDS: IBUPROFEN 600 MG TABLET PO PRN (20:26)
[2021-11-12] MEDS: ZOLPIDEM TARTRATE 10 MG TABLET PO PRN (20:27)
[2021-11-13] MEDS: MULTIVITAMINS WITH MINERALS, THERAPEUTIC TABLET PO SCH (09:27)
[2021-11-13] MEDS: PROPRANOLOL HCL 20 MG TABLET PO SCH ×2 (09:27→16:45)
[2021-11-13] MEDS: BENZTROPINE MESYLATE 2 MG TABLET PO SCH ×2 (09:27→16:46)
[2021-11-13] MEDS: LORazepam 2 MG TABLET PO PRN ×2 (14:58→19:33)
[2021-11-13] MEDS: HALOPERIDOL 5 MG TABLET PO PRN (16:46)
[2021-11-13 17:04] VITALS: BP 112/88
[2021-11-14 08:00] VITALS: BP 102/65
[2021-11-14] MEDS: BENZTROPINE MESYLATE 2 MG TABLET PO SCH ×2 (08:56→16:41)
[2021-11-14] MEDS: MULTIVITAMINS WITH MINERALS, THERAPEUTIC TABLET PO SCH (08:56)
[2021-11-14] MEDS: PROPRANOLOL HCL 20 MG TABLET PO SCH ×2 (08:56→16:41)
[2021-11-14] MEDS: LORazepam 2 MG TABLET PO PRN ×3 (08:57→18:29)
[2021-11-14 09:05] LABS: COVID AG,FIA SOURCE NASAL SWAB
[2021-11-14 16:00] VITALS: BP 118/83
[2021-11-14] MEDS: HALOPERIDOL 5 MG TABLET PO PRN (16:41)
[2021-11-15 08:00] VITALS: BP 103/68
[2021-11-15] MEDS: BENZTROPINE MESYLATE 2 MG TABLET PO SCH ×2 (08:32→16:37)
[2021-11-15] MEDS: PROPRANOLOL HCL 20 MG TABLET PO SCH ×2 (08:32→16:38)
[2021-11-15] MEDS: MULTIVITAMINS WITH MINERALS, THERAPEUTIC TABLET PO SCH (08:32)
[2021-11-15] MEDS: LORazepam 2 MG TABLET PO PRN ×2 (08:33→16:38)
[2021-11-15] MEDS: HALOPERIDOL 5 MG TABLET PO PRN (16:38)
[2021-11-15 16:52] VITALS: BP 110/76
[2021-11-16 08:34] VITALS: BP 104/78
[2021-11-16] MEDS: LORazepam 2 MG TABLET PO PRN ×2 (08:57→20:01)
[2021-11-16] MEDS: PROPRANOLOL HCL 20 MG TABLET PO SCH ×2 (08:57→15:50)
[2021-11-16] MEDS: MULTIVITAMINS WITH MINERALS, THERAPEUTIC TABLET PO SCH (08:57)
[2021-11-16] MEDS: BENZTROPINE MESYLATE 2 MG TABLET PO SCH ×2 (08:57→15:50)
[2021-11-16 16:20] VITALS: BP 117/73
[2021-11-17 08:05] VITALS: BP 103/67
[2021-11-17] MEDS: MULTIVITAMINS WITH MINERALS, THERAPEUTIC TABLET PO SCH (08:28)
[2021-11-17] MEDS: PROPRANOLOL HCL 20 MG TABLET PO SCH ×2 (08:28→15:54)
[2021-11-17] MEDS: BENZTROPINE MESYLATE 2 MG TABLET PO SCH ×2 (08:28→15:54)
[2021-11-17] MEDS: LORazepam 2 MG TABLET PO PRN ×2 (08:30→16:23)
[2021-11-17 16:28] VITALS: BP 115/81
[2021-11-18 08:28] VITALS: BP 123/89
[2021-11-18] MEDS: MULTIVITAMINS WITH MINERALS, THERAPEUTIC TABLET PO SCH (08:30)
[2021-11-18] MEDS: BENZTROPINE MESYLATE 2 MG TABLET PO SCH ×2 (08:30→17:06)
[2021-11-18] MEDS: LORazepam 2 MG TABLET PO PRN ×2 (08:31→14:18)
[2021-11-18] MEDS: PROPRANOLOL HCL 20 MG TABLET PO SCH ×2 (09:18→17:06)
[2021-11-18 16:06] VITALS: BP 110/71
[2021-11-19 08:00] VITALS: BP 120/62
[2021-11-19] MEDS: MULTIVITAMINS WITH MINERALS, THERAPEUTIC TABLET PO SCH (08:39)
[2021-11-19] MEDS: BENZTROPINE MESYLATE 2 MG TABLET PO SCH ×2 (08:39→16:26)
[2021-11-19] MEDS: PROPRANOLOL HCL 20 MG TABLET PO SCH ×2 (08:39→16:26)
[2021-11-19] MEDS: LORazepam 2 MG TABLET PO PRN ×2 (08:39→14:20)
[2021-11-19] MEDS: ACETAMINOPHEN 325 MG TABLET PO PRN (15:59)
[2021-11-19 16:00] VITALS: BP 112/70
[2021-11-20] MEDS: BENZTROPINE MESYLATE 2 MG TABLET PO SCH ×2 (09:03→16:16)
[2021-11-20] MEDS: MULTIVITAMINS WITH MINERALS, THERAPEUTIC TABLET PO SCH (09:03)
[2021-11-20] MEDS: PROPRANOLOL HCL 20 MG TABLET PO SCH ×2 (09:03→16:16)
[2021-11-20] MEDS: LORazepam 2 MG TABLET PO PRN ×2 (09:05→17:34)
[2021-11-20 14:06] VITALS: BP 101/80
[2021-11-20 16:42] VITALS: BP 111/81
[2021-11-20] MEDS: ZOLPIDEM TARTRATE 10 MG TABLET PO PRN (22:01)
[2021-11-21 04:19] VITALS: BP 114/78
[2021-11-21 08:07] VITALS: BP 108/68
[2021-11-21] MEDS: BENZTROPINE MESYLATE 2 MG TABLET PO SCH ×2 (08:44→16:08)
[2021-11-21] MEDS: PROPRANOLOL HCL 20 MG TABLET PO SCH ×2 (08:44→16:26)
[2021-11-21] MEDS: MULTIVITAMINS WITH MINERALS, THERAPEUTIC TABLET PO SCH (08:44)
[2021-11-21] MEDS: LORazepam 2 MG TABLET PO PRN ×2 (08:46→13:09)
[2021-11-21 10:44] LABS: COVID AG,FIA SOURCE NASAL SWAB
[2021-11-21 16:24] VITALS: BP 93/66
[2021-11-21] MEDS: ZOLPIDEM TARTRATE 10 MG TABLET PO PRN (20:43)
[2021-11-22 04:03] VITALS: BP 102/70
[2021-11-22] MEDS: LORazepam 2 MG TABLET PO PRN ×2 (08:56→14:18)
[2021-11-22] MEDS: BENZTROPINE MESYLATE 2 MG TABLET PO SCH ×2 (08:57→16:02)
[2021-11-22] MEDS: MULTIVITAMINS WITH MINERALS, THERAPEUTIC TABLET PO SCH (08:57)
[2021-11-22] MEDS: PROPRANOLOL HCL 20 MG TABLET PO SCH ×2 (08:57→16:02)
[2021-11-22] MEDS: RisperiDONE MICROSPHERES 25 MG/2 ML SYRINGE IM SCH (09:18)
[2021-11-22 09:38] VITALS: BP 100/64
[2021-11-22] MEDS: HALOPERIDOL 5 MG TABLET PO PRN (14:18)
[2021-11-22 16:48] VITALS: BP 105/78
[2021-11-22] MEDS: ZOLPIDEM TARTRATE 10 MG TABLET PO PRN (20:51)
[2021-11-23 08:41] VITALS: BP 105/66
[2021-11-23] MEDS: HALOPERIDOL 5 MG TABLET PO PRN ×3 (08:59→16:52)
[2021-11-23] MEDS: BENZTROPINE MESYLATE 2 MG TABLET PO SCH ×2 (08:59→16:51)
[2021-11-23] MEDS: LORazepam 2 MG TABLET PO PRN ×4 (08:59→18:16)
[2021-11-23] MEDS: PROPRANOLOL HCL 20 MG TABLET PO SCH ×2 (08:59→16:51)
[2021-11-23] MEDS: MULTIVITAMINS WITH MINERALS, THERAPEUTIC TABLET PO SCH (08:59)
[2021-11-23 16:13] VITALS: BP 118/79
[2021-11-24 08:00] VITALS: BP 105/69
[2021-11-24] MEDS: MULTIVITAMINS WITH MINERALS, THERAPEUTIC TABLET PO SCH (08:32)
[2021-11-24] MEDS: PROPRANOLOL HCL 20 MG TABLET PO SCH ×2 (08:32→16:50)
[2021-11-24] MEDS: BENZTROPINE MESYLATE 2 MG TABLET PO SCH ×2 (08:32→16:50)
[2021-11-24] MEDS: LORazepam 2 MG TABLET PO PRN ×2 (08:35→19:38)
[2021-11-24] MEDS: HALOPERIDOL 5 MG TABLET PO PRN ×2 (11:02→16:50)
[2021-11-24 16:26] VITALS: BP 98/74
[2021-11-24 20:35] VITALS: BP 101/71
[2021-11-25 08:21] VITALS: BP 129/72
[2021-11-25] MEDS: HALOPERIDOL 5 MG TABLET PO PRN ×3 (08:42→18:27)
[2021-11-25] MEDS: MULTIVITAMINS WITH MINERALS, THERAPEUTIC TABLET PO SCH (08:42)
[2021-11-25] MEDS: BENZTROPINE MESYLATE 2 MG TABLET PO SCH ×2 (08:42→16:53)
[2021-11-25] MEDS: LORazepam 2 MG TABLET PO PRN ×3 (08:42→18:27)
[2021-11-25] MEDS: PROPRANOLOL HCL 20 MG TABLET PO SCH ×2 (08:42→16:53)
[2021-11-25 16:15] VITALS: BP 107/67
[2021-11-25 20:35] VITALS: BP 123/67
[2021-11-26] MEDS: PROPRANOLOL HCL 20 MG TABLET PO SCH ×2 (07:52→16:30)
[2021-11-26] MEDS: BENZTROPINE MESYLATE 2 MG TABLET PO SCH ×2 (07:52→16:30)
[2021-11-26] MEDS: LORazepam 2 MG TABLET PO PRN ×3 (07:52→17:45)
[2021-11-26] MEDS: HALOPERIDOL 5 MG TABLET PO PRN ×3 (07:52→17:45)
[2021-11-26] MEDS: MULTIVITAMINS WITH MINERALS, THERAPEUTIC TABLET PO SCH (07:53)
[2021-11-26 08:25] VITALS: BP 108/63
[2021-11-26 16:32] VITALS: BP 102/83
[2021-11-26 20:35] VITALS: BP 106/70
[2021-11-27 08:30] VITALS: BP 97/60
[2021-11-27] MEDS: PROPRANOLOL HCL 20 MG TABLET PO SCH ×2 (09:00→17:02)
[2021-11-27] MEDS: LORazepam 2 MG TABLET PO PRN ×3 (09:18→19:10)
[2021-11-27] MEDS: MULTIVITAMINS WITH MINERALS, THERAPEUTIC TABLET PO SCH (09:18)
[2021-11-27] MEDS: HALOPERIDOL 5 MG TABLET PO PRN ×3 (09:18→19:10)
[2021-11-27] MEDS: BENZTROPINE MESYLATE 2 MG TABLET PO SCH ×2 (09:18→17:02)
[2021-11-27 16:34] VITALS: BP 111/73
[2021-11-27 20:18] VITALS: BP 107/67
[2021-11-28 06:38] LABS: COVID AG,FIA SOURCE NASAL SWAB
[2021-11-28] MEDS: LORazepam 2 MG TABLET PO PRN ×3 (07:55→18:15)
[2021-11-28] MEDS: HALOPERIDOL 5 MG TABLET PO PRN ×3 (07:55→18:15)
[2021-11-28] MEDS: MULTIVITAMINS WITH MINERALS, THERAPEUTIC TABLET PO SCH (07:56)
[2021-11-28] MEDS: BENZTROPINE MESYLATE 2 MG TABLET PO SCH ×2 (07:56→16:53)
[2021-11-28] MEDS: PROPRANOLOL HCL 20 MG TABLET PO SCH ×2 (07:57→16:53)
[2021-11-28 08:38] VITALS: BP 145/100
[2021-11-28 16:15] VITALS: BP 107/69
[2021-11-29 08:04] VITALS: BP 106/62
[2021-11-29] MEDS: MULTIVITAMINS WITH MINERALS, THERAPEUTIC TABLET PO SCH (08:56)
[2021-11-29] MEDS: PROPRANOLOL HCL 20 MG TABLET PO SCH ×2 (08:56→16:26)
[2021-11-29] MEDS: BENZTROPINE MESYLATE 2 MG TABLET PO SCH ×2 (08:56→16:26)
[2021-11-29] MEDS: LORazepam 2 MG TABLET PO PRN ×3 (09:49→18:54)
[2021-11-29] MEDS: HALOPERIDOL 5 MG TABLET PO PRN ×3 (09:51→18:54)
[2021-11-29 16:01] VITALS: BP 97/66
[2021-11-30] MEDS: PROPRANOLOL HCL 20 MG TABLET PO SCH ×2 (08:15→15:58)
[2021-11-30] MEDS: LORazepam 2 MG TABLET PO PRN ×3 (08:18→16:26)
[2021-11-30] MEDS: HALOPERIDOL 5 MG TABLET PO PRN ×3 (08:18→16:25)
[2021-11-30] MEDS: MULTIVITAMINS WITH MINERALS, THERAPEUTIC TABLET PO SCH (08:18)
[2021-11-30] MEDS: BENZTROPINE MESYLATE 2 MG TABLET PO SCH ×2 (08:18→15:58)
[2021-11-30 08:29] VITALS: BP 104/65
[2021-11-30 16:15] VITALS: BP 121/76
[2021-12-01] MEDS: LORazepam 2 MG TABLET PO PRN ×2 (07:48→16:15)
[2021-12-01] MEDS: MULTIVITAMINS WITH MINERALS, THERAPEUTIC TABLET PO SCH (07:48)
[2021-12-01] MEDS: HALOPERIDOL 5 MG TABLET PO PRN ×2 (07:48→16:15)
[2021-12-01] MEDS: BENZTROPINE MESYLATE 2 MG TABLET PO SCH ×2 (07:48→15:59)
[2021-12-01] MEDS: PROPRANOLOL HCL 20 MG TABLET PO SCH ×2 (07:48→15:59)
[2021-12-01 08:30] VITALS: BP 101/62
[2021-12-01 16:34] VITALS: BP 106/90
[2021-12-01 20:41] VITALS: BP 110/75
[2021-12-02 07:12] LABS: COVID AG,FIA SOURCE NASAL SWAB
[2021-12-02] MEDS: PROPRANOLOL HCL 20 MG TABLET PO SCH ×2 (09:31→16:05)
[2021-12-02] MEDS: LORazepam 2 MG TABLET PO PRN ×2 (09:31→14:33)
[2021-12-02] MEDS: MULTIVITAMINS WITH MINERALS, THERAPEUTIC TABLET PO SCH (09:31)
[2021-12-02] MEDS: HALOPERIDOL 5 MG TABLET PO PRN ×2 (09:31→14:33)
[2021-12-02] MEDS: BENZTROPINE MESYLATE 2 MG TABLET PO SCH ×2 (09:32→16:05)
[2021-12-02 09:53] VITALS: BP 101/62
[2021-12-02 11:20] LABS: BASOPHILS % (AUTO) 0.5 % (0.0-2.0); EOSINOPHILS % (AUTO) 6.7 % (1.0-6.0); HEMATOCRIT 42.3 % (36-46); HEMOGLOBIN 14.6 g/dL (12.0-16.0); LYMPHOCYTES # (AUTO) 1.8 K/uL (1.0-4.8); LYMPHOCYTES % (AUTO) 25.5 % (22.0-44.0); MEAN CORPUSCULAR HEMOGLOBIN 31.4 pg (26.0-34.0); MEAN CORPUSCULAR HGB CONC 34.4 G/dL (31.0-37.0); MEAN CORPUSCULAR VOLUME 91 fL (80-100); MONOCYTES # (AUTO) 0.6 K/uL (0.1-1.0); MONOCYTES % (AUTO) 8.2 % (2.0-9.0); NEUTROPHILS # (AUTO) 4.3 K/uL (1.8-7.7); NEUTROPHILS % (AUTO) 59.1 % (40.0-70.0); PLATELET COUNT (AUTO) 234 K/uL (150-450); RED BLOOD CELL COUNT(AUTO) 4.63 MIL/uL (4.00-5.20); RED CELL DISTRIBUTION WIDTH 13.6 % (11.5-14.5)
[2021-12-02 11:48] LABS: HEMOGLOBIN A1C 5.2 % (3.8-5.6)
[2021-12-02 12:30] LABS: ALANINE AMINOTRANSFERASE 29 U/L (12-78); ALBUMIN 3.8 g/dL (3.4-5.0); ALKALINE PHOSPHATASE 68 U/L (46-116); ANION GAP 13 mmol/L (8-16); ASPARTATE AMINOTRANSFERASE 15 U/L (15-37); BILIRUBIN,TOTAL 0.6 mg/dL (0.1-1.0); CALCIUM, TOTAL 9.1 mg/dL (8.8-10.5); CARBON DIOXIDE 24 mmol/L (22-29); CHLORIDE 102 mmol/L (98-107); CHOL/HDL RATIO 3.9 (3.9-5.7); CHOLESTEROL 212 mg/dL (131-200); CREATININE 0.67 mg/dL (0.60-1.30); GLUCOSE,RANDOM 107 mg/dL (70-110); HDL CHOLESTEROL 55 mg/dL (40-60); LDL CHOL (CALC.) 141 mg/dL (0-130); PHOSPHORUS 3.5 mg/dL (2.5-4.9); POTASSIUM 4.3 mmol/L (3.5-5.1); SODIUM SERUM 139 mmol/L (136-145); THYROID STIMULATING HORMONE 1.82 uIU/mL (0.36-3.74); TOTAL PROTEIN, SERUM 7.6 g/dL (6.4-8.2); TRIGLYCERIDES 78 mg/dL (15-150); UREA NITROGEN, BLOOD 8 mg/dL (7-18)
[2021-12-02 12:32] LABS: GLOMERULAR FILTR. RATE CALC > 60 mL/min (>60)
[2021-12-02 16:16] VITALS: BP 116/82
[2021-12-02 20:26] VITALS: BP 108/67
[2021-12-03] MEDS: LORazepam 2 MG TABLET PO PRN ×2 (08:34→14:16)
[2021-12-03] MEDS: BENZTROPINE MESYLATE 2 MG TABLET PO SCH ×2 (08:34→16:33)
[2021-12-03] MEDS: MULTIVITAMINS WITH MINERALS, THERAPEUTIC TABLET PO SCH (08:34)
[2021-12-03] MEDS: HALOPERIDOL 5 MG TABLET PO PRN ×2 (08:34→14:16)
[2021-12-03] MEDS: PROPRANOLOL HCL 20 MG TABLET PO SCH ×2 (08:34→16:35)
[2021-12-03 10:28] VITALS: BP 105/72
[2021-12-03 16:19] VITALS: BP 109/73
[2021-12-03 20:33] VITALS: BP 119/77
[2021-12-04] MEDS: MULTIVITAMINS WITH MINERALS, THERAPEUTIC TABLET PO SCH (07:50)
[2021-12-04] MEDS: HALOPERIDOL 5 MG TABLET PO PRN ×3 (07:50→19:34)
[2021-12-04] MEDS: BENZTROPINE MESYLATE 2 MG TABLET PO SCH ×2 (07:50→16:45)
[2021-12-04] MEDS: PROPRANOLOL HCL 20 MG TABLET PO SCH ×2 (07:50→16:45)
[2021-12-04] MEDS: LORazepam 2 MG TABLET PO PRN ×3 (07:50→19:34)
[2021-12-04 10:57] VITALS: BP 114/77
[2021-12-04 16:25] VITALS: BP 108/73
[2021-12-05 08:11] VITALS: BP 128/84
[2021-12-05] MEDS: BENZTROPINE MESYLATE 2 MG TABLET PO SCH ×2 (08:25→16:41)
[2021-12-05] MEDS: HALOPERIDOL 5 MG TABLET PO PRN ×2 (08:25→13:31)
[2021-12-05] MEDS: LORazepam 2 MG TABLET PO PRN ×2 (08:25→13:31)
[2021-12-05] MEDS: PROPRANOLOL HCL 20 MG TABLET PO SCH ×2 (08:25→16:41)
[2021-12-05] MEDS: MULTIVITAMINS WITH MINERALS, THERAPEUTIC TABLET PO SCH (08:25)
[2021-12-05 16:13] VITALS: BP 102/70
[2021-12-05] MEDS: NICOTINE 21 MG/24 HOUR PATCH TD PRN (17:12)
[2021-12-06] MEDS: PROPRANOLOL HCL 20 MG TABLET PO SCH ×2 (08:28→17:00)
[2021-12-06] MEDS: LORazepam 2 MG TABLET PO PRN ×2 (08:29→13:20)
[2021-12-06] MEDS: MULTIVITAMINS WITH MINERALS, THERAPEUTIC TABLET PO SCH (08:29)
[2021-12-06] MEDS: HALOPERIDOL 5 MG TABLET PO PRN ×2 (08:29→13:19)
[2021-12-06] MEDS: BENZTROPINE MESYLATE 2 MG TABLET PO SCH ×2 (08:30→16:13)
[2021-12-06] MEDS: RisperiDONE MICROSPHERES 25 MG/2 ML SYRINGE IM SCH (08:31)
[2021-12-06 09:49] VITALS: BP 107/76
[2021-12-06 16:13] VITALS: BP 102/82
[2021-12-06 20:07] VITALS: BP 109/71
[2021-12-07] MEDS: LORazepam 2 MG TABLET PO PRN ×4 (01:10→18:35)
[2021-12-07 01:15] VITALS: BP 100/60
[2021-12-07 08:00] VITALS: BP 102/64
[2021-12-07] MEDS: HALOPERIDOL 5 MG TABLET PO PRN ×2 (08:46→13:01)
[2021-12-07] MEDS: MULTIVITAMINS WITH MINERALS, THERAPEUTIC TABLET PO SCH (08:46)
[2021-12-07] MEDS: BENZTROPINE MESYLATE 2 MG TABLET PO SCH ×2 (08:46→16:27)
[2021-12-07] MEDS: PROPRANOLOL HCL 20 MG TABLET PO SCH ×2 (08:46→16:26)
[2021-12-07 16:55] VITALS: BP 114/66
[2021-12-08 08:13] VITALS: BP 108/64
[2021-12-08] MEDS: BENZTROPINE MESYLATE 2 MG TABLET PO SCH ×2 (08:46→16:20)
[2021-12-08] MEDS: LORazepam 2 MG TABLET PO PRN ×2 (08:46→18:26)
[2021-12-08] MEDS: HALOPERIDOL 5 MG TABLET PO PRN ×2 (08:46→18:26)
[2021-12-08] MEDS: PROPRANOLOL HCL 20 MG TABLET PO SCH ×2 (08:46→16:19)
[2021-12-08] MEDS: MULTIVITAMINS WITH MINERALS, THERAPEUTIC TABLET PO SCH (08:46)
[2021-12-08 16:04] VITALS: BP 110/76
[2021-12-09 01:05] LABS: COVID AG,FIA SOURCE NASAL SWAB
[2021-12-09 08:28] VITALS: BP 102/63
[2021-12-09] MEDS: BENZTROPINE MESYLATE 2 MG TABLET PO SCH ×2 (08:35→16:25)
[2021-12-09] MEDS: HALOPERIDOL 5 MG TABLET PO PRN ×2 (08:35→14:22)
[2021-12-09] MEDS: LORazepam 2 MG TABLET PO PRN ×2 (08:35→14:24)
[2021-12-09] MEDS: MULTIVITAMINS WITH MINERALS, THERAPEUTIC TABLET PO SCH (08:35)
[2021-12-09] MEDS: PROPRANOLOL HCL 20 MG TABLET PO SCH ×2 (08:35→16:25)
[2021-12-09 16:39] VITALS: BP 106/66
[2021-12-10 08:14] VITALS: BP 99/63
[2021-12-10] MEDS: PROPRANOLOL HCL 20 MG TABLET PO SCH ×2 (09:11→16:39)
[2021-12-10] MEDS: HALOPERIDOL 5 MG TABLET PO PRN ×2 (09:11→14:55)
[2021-12-10] MEDS: BENZTROPINE MESYLATE 2 MG TABLET PO SCH ×2 (09:11→16:39)
[2021-12-10] MEDS: MULTIVITAMINS WITH MINERALS, THERAPEUTIC TABLET PO SCH (09:11)
[2021-12-10] MEDS: LORazepam 2 MG TABLET PO PRN ×2 (09:11→14:55)
[2021-12-10 16:09] VITALS: BP 104/70
[2021-12-11 00:11] VITALS: BP 138/88
[2021-12-11] MEDS: HALOPERIDOL 5 MG TABLET PO PRN (07:52)
[2021-12-11] MEDS: LORazepam 2 MG TABLET PO PRN ×3 (07:52→17:13)
[2021-12-11] MEDS: MULTIVITAMINS WITH MINERALS, THERAPEUTIC TABLET PO SCH (07:52)
[2021-12-11] MEDS: PROPRANOLOL HCL 20 MG TABLET PO SCH ×2 (07:52→17:01)
[2021-12-11] MEDS: BENZTROPINE MESYLATE 2 MG TABLET PO SCH ×2 (07:52→17:01)
[2021-12-11 08:38] VITALS: BP 106/71
[2021-12-11 16:09] VITALS: BP 102/79
[2021-12-11 20:20] VITALS: BP 104/77
[2021-12-12 08:00] VITALS: BP 116/72
[2021-12-12] MEDS: LORazepam 2 MG TABLET PO PRN ×2 (08:09→12:13)
[2021-12-12] MEDS: BENZTROPINE MESYLATE 2 MG TABLET PO SCH ×2 (08:09→16:01)
[2021-12-12] MEDS: PROPRANOLOL HCL 20 MG TABLET PO SCH ×2 (08:09→16:01)
[2021-12-12] MEDS: MULTIVITAMINS WITH MINERALS, THERAPEUTIC TABLET PO SCH (08:10)
[2021-12-12] MEDS: HALOPERIDOL 5 MG TABLET PO PRN ×2 (08:10→12:13)
[2021-12-12 08:51] VITALS: BP 94/70
[2021-12-12 12:10] VITALS: BP 119/73
[2021-12-12 16:07] VITALS: BP 163/64
[2021-12-13 08:17] VITALS: BP 103/70
[2021-12-13] MEDS: BENZTROPINE MESYLATE 2 MG TABLET PO SCH ×2 (08:21→16:37)
[2021-12-13] MEDS: MULTIVITAMINS WITH MINERALS, THERAPEUTIC TABLET PO SCH (08:21)
[2021-12-13] MEDS: HALOPERIDOL 5 MG TABLET PO PRN ×2 (08:21→13:16)
[2021-12-13] MEDS: LORazepam 2 MG TABLET PO PRN ×2 (08:21→13:16)
[2021-12-13] MEDS: PROPRANOLOL HCL 20 MG TABLET PO SCH ×2 (08:22→16:37)
[2021-12-13 16:02] VITALS: BP 109/69
[2021-12-14] MEDS: MULTIVITAMINS WITH MINERALS, THERAPEUTIC TABLET PO SCH (07:50)
[2021-12-14] MEDS: PROPRANOLOL HCL 20 MG TABLET PO SCH ×2 (07:50→16:49)
[2021-12-14] MEDS: BENZTROPINE MESYLATE 2 MG TABLET PO SCH ×2 (07:50→16:49)
[2021-12-14] MEDS: LORazepam 2 MG TABLET PO PRN ×3 (07:51→16:49)
[2021-12-14 08:10] VITALS: BP 108/70
[2021-12-14 16:07] VITALS: BP 109/73
[2021-12-14] MEDS: HALOPERIDOL 5 MG TABLET PO PRN (16:49)
[2021-12-15] MEDS: PROPRANOLOL HCL 20 MG TABLET PO SCH ×2 (07:49→15:58)
[2021-12-15] MEDS: BENZTROPINE MESYLATE 2 MG TABLET PO SCH ×2 (07:49→15:58)
[2021-12-15] MEDS: MULTIVITAMINS WITH MINERALS, THERAPEUTIC TABLET PO SCH (07:49)
[2021-12-15] MEDS: LORazepam 2 MG TABLET PO PRN ×2 (07:49→15:04)
[2021-12-15] MEDS: HALOPERIDOL 5 MG TABLET PO PRN ×2 (07:49→15:04)
[2021-12-15 08:42] VITALS: BP 115/78
[2021-12-15 16:11] VITALS: BP 110/77
[2021-12-16 05:21] LABS: COVID AG,FIA SOURCE NASAL SWAB
[2021-12-16] MEDS: MULTIVITAMINS WITH MINERALS, THERAPEUTIC TABLET PO SCH (07:50)
[2021-12-16] MEDS: PROPRANOLOL HCL 20 MG TABLET PO SCH ×2 (07:50→16:11)
[2021-12-16] MEDS: LORazepam 2 MG TABLET PO PRN ×2 (07:51→14:22)
[2021-12-16] MEDS: HALOPERIDOL 5 MG TABLET PO PRN ×2 (07:51→14:22)
[2021-12-16] MEDS: BENZTROPINE MESYLATE 2 MG TABLET PO SCH ×2 (07:51→16:11)
[2021-12-16 08:35] VITALS: BP 166/70
[2021-12-16 16:17] VITALS: BP 114/74
[2021-12-16] MEDS: ACETAMINOPHEN 325 MG TABLET PO PRN (16:17)
[2021-12-17] MEDS: MULTIVITAMINS WITH MINERALS, THERAPEUTIC TABLET PO SCH (08:06)
[2021-12-17] MEDS: BENZTROPINE MESYLATE 2 MG TABLET PO SCH ×2 (08:06→16:18)
[2021-12-17] MEDS: LORazepam 2 MG TABLET PO PRN ×2 (08:06→14:17)
[2021-12-17] MEDS: HALOPERIDOL 5 MG TABLET PO PRN ×2 (08:06→14:17)
[2021-12-17] MEDS: PROPRANOLOL HCL 20 MG TABLET PO SCH ×2 (08:09→16:18)
[2021-12-17 09:54] VITALS: BP 108/74
[2021-12-17 16:48] VITALS: BP 117/76
[2021-12-18] MEDS: LORazepam 2 MG TABLET PO PRN ×4 (00:28→19:34)
[2021-12-18] MEDS: HALOPERIDOL 5 MG TABLET PO PRN ×2 (00:28→16:36)
[2021-12-18] MEDS: MULTIVITAMINS WITH MINERALS, THERAPEUTIC TABLET PO SCH (08:01)
[2021-12-18] MEDS: PROPRANOLOL HCL 20 MG TABLET PO SCH ×2 (08:01→16:36)
[2021-12-18] MEDS: BENZTROPINE MESYLATE 2 MG TABLET PO SCH ×2 (08:01→16:36)
[2021-12-18 08:35] VITALS: BP 137/86
[2021-12-18 16:05] VITALS: BP 107/72
[2021-12-19 09:03] VITALS: BP 106/81
[2021-12-19] MEDS: PROPRANOLOL HCL 20 MG TABLET PO SCH ×2 (10:16→17:21)
[2021-12-19] MEDS: MULTIVITAMINS WITH MINERALS, THERAPEUTIC TABLET PO SCH (10:17)
[2021-12-19] MEDS: BENZTROPINE MESYLATE 2 MG TABLET PO SCH ×2 (10:17→17:21)
[2021-12-19] MEDS: HALOPERIDOL 5 MG TABLET PO PRN ×2 (10:17→14:19)
[2021-12-19] MEDS: LORazepam 2 MG TABLET PO PRN ×2 (10:17→14:19)
[2021-12-19] MEDS: IBUPROFEN 600 MG TABLET PO PRN (16:04)
[2021-12-19 16:10] VITALS: BP 102/72
[2021-12-20] MEDS: LORazepam 2 MG TABLET PO PRN ×3 (07:32→19:11)
[2021-12-20] MEDS: HALOPERIDOL 5 MG TABLET PO PRN ×2 (07:32→12:43)
[2021-12-20] MEDS: MULTIVITAMINS WITH MINERALS, THERAPEUTIC TABLET PO SCH (07:32)
[2021-12-20] MEDS: PROPRANOLOL HCL 20 MG TABLET PO SCH ×2 (07:32→15:53)
[2021-12-20] MEDS: BENZTROPINE MESYLATE 2 MG TABLET PO SCH ×2 (07:32→15:54)
[2021-12-20] MEDS: RisperiDONE MICROSPHERES 25 MG/2 ML SYRINGE IM SCH (07:35)
[2021-12-20 08:40] VITALS: BP 100/68
[2021-12-20 16:04] VITALS: BP 110/77
[2021-12-21 08:21] VITALS: BP 95/62
[2021-12-21 09:28] VITALS: BP 118/69
[2021-12-21] MEDS: LORazepam 2 MG TABLET PO PRN ×2 (09:30→13:31)
[2021-12-21] MEDS: MULTIVITAMINS WITH MINERALS, THERAPEUTIC TABLET PO SCH (09:30)
[2021-12-21] MEDS: PROPRANOLOL HCL 20 MG TABLET PO SCH ×2 (09:30→16:14)
[2021-12-21] MEDS: BENZTROPINE MESYLATE 2 MG TABLET PO SCH ×2 (09:30→16:14)
[2021-12-21 16:02] VITALS: BP 124/78
[2021-12-21 20:25] VITALS: BP 119/77
[2021-12-22 08:11] VITALS: BP 101/63
[2021-12-22] MEDS: PROPRANOLOL HCL 20 MG TABLET PO SCH ×2 (10:58→16:58)
[2021-12-22] MEDS: MULTIVITAMINS WITH MINERALS, THERAPEUTIC TABLET PO SCH (11:00)
[2021-12-22] MEDS: LORazepam 2 MG TABLET PO PRN ×3 (11:00→19:08)
[2021-12-22] MEDS: HALOPERIDOL 5 MG TABLET PO PRN ×3 (11:00→19:08)
[2021-12-22] MEDS: BENZTROPINE MESYLATE 2 MG TABLET PO SCH ×2 (11:01→16:58)
[2021-12-22 16:55] VITALS: BP 92/65
[2021-12-23 06:49] LABS: COVID AG,FIA SOURCE NASAL SWAB
[2021-12-23] MEDS: BENZTROPINE MESYLATE 2 MG TABLET PO SCH ×2 (08:11→16:23)
[2021-12-23] MEDS: HALOPERIDOL 5 MG TABLET PO PRN (08:11)
[2021-12-23] MEDS: LORazepam 2 MG TABLET PO PRN ×2 (08:11→13:31)
[2021-12-23] MEDS: PROPRANOLOL HCL 20 MG TABLET PO SCH ×2 (08:11→16:22)
[2021-12-23] MEDS: MULTIVITAMINS WITH MINERALS, THERAPEUTIC TABLET PO SCH (08:12)
[2021-12-23 08:21] VITALS: BP 92/59
[2021-12-23 16:22] VITALS: BP 107/65
[2021-12-24 08:46] VITALS: BP 99/61
[2021-12-24] MEDS: PROPRANOLOL HCL 20 MG TABLET PO SCH ×2 (08:48→17:14)
[2021-12-24] MEDS: LORazepam 2 MG TABLET PO PRN ×2 (08:48→14:39)
[2021-12-24] MEDS: MULTIVITAMINS WITH MINERALS, THERAPEUTIC TABLET PO SCH (08:48)
[2021-12-24] MEDS: HALOPERIDOL 5 MG TABLET PO PRN ×2 (08:48→14:39)
[2021-12-24] MEDS: BENZTROPINE MESYLATE 2 MG TABLET PO SCH ×2 (08:48→17:14)
[2021-12-24 16:14] VITALS: BP 102/71
[2021-12-25] MEDS: LORazepam 2 MG TABLET PO PRN ×3 (07:51→19:54)
[2021-12-25] MEDS: HALOPERIDOL 5 MG TABLET PO PRN ×4 (07:51→19:54)
[2021-12-25] MEDS: MULTIVITAMINS WITH MINERALS, THERAPEUTIC TABLET PO SCH (07:51)
[2021-12-25] MEDS: PROPRANOLOL HCL 20 MG TABLET PO SCH ×2 (07:51→16:55)
[2021-12-25] MEDS: BENZTROPINE MESYLATE 2 MG TABLET PO SCH ×2 (07:51→16:55)
[2021-12-25 08:30] VITALS: BP 102/70
[2021-12-26 08:11] VITALS: BP 124/79
[2021-12-26] MEDS: PROPRANOLOL HCL 20 MG TABLET PO SCH ×2 (08:17→16:18)
[2021-12-26] MEDS: HALOPERIDOL 5 MG TABLET PO PRN ×3 (08:17→19:41)
[2021-12-26] MEDS: LORazepam 2 MG TABLET PO PRN ×3 (08:17→19:41)
[2021-12-26] MEDS: BENZTROPINE MESYLATE 2 MG TABLET PO SCH ×2 (08:18→16:18)
[2021-12-26] MEDS: MULTIVITAMINS WITH MINERALS, THERAPEUTIC TABLET PO SCH (08:18)
[2021-12-26 16:08] VITALS: BP 112/75
[2021-12-27 08:06] VITALS: BP 95/61
[2021-12-27 08:49] VITALS: BP 119/68
[2021-12-27] MEDS: MULTIVITAMINS WITH MINERALS, THERAPEUTIC TABLET PO SCH (08:51)
[2021-12-27] MEDS: BENZTROPINE MESYLATE 2 MG TABLET PO SCH ×2 (08:51→16:29)
[2021-12-27] MEDS: PROPRANOLOL HCL 20 MG TABLET PO SCH ×2 (08:51→16:29)
[2021-12-27] MEDS: HALOPERIDOL 5 MG TABLET PO PRN ×3 (08:52→18:05)
[2021-12-27] MEDS: LORazepam 2 MG TABLET PO PRN ×3 (08:52→18:05)
[2021-12-27 16:06] VITALS: BP 120/78
[2021-12-28 08:18] VITALS: BP 102/65
[2021-12-28] MEDS: BENZTROPINE MESYLATE 2 MG TABLET PO SCH ×2 (09:00→16:27)
[2021-12-28] MEDS: LORazepam 2 MG TABLET PO PRN ×2 (09:00→19:17)
[2021-12-28] MEDS: MULTIVITAMINS WITH MINERALS, THERAPEUTIC TABLET PO SCH (09:00)
[2021-12-28] MEDS: PROPRANOLOL HCL 20 MG TABLET PO SCH ×2 (09:00→16:27)
[2021-12-28] MEDS: HALOPERIDOL 5 MG TABLET PO PRN ×2 (09:49→19:17)
[2021-12-28 16:16] VITALS: BP 97/69
[2021-12-29] MEDS: LORazepam 2 MG TABLET PO PRN ×3 (07:37→21:53)
[2021-12-29] MEDS: PROPRANOLOL HCL 20 MG TABLET PO SCH ×2 (07:37→15:59)
[2021-12-29] MEDS: MULTIVITAMINS WITH MINERALS, THERAPEUTIC TABLET PO SCH (07:37)
[2021-12-29] MEDS: BENZTROPINE MESYLATE 2 MG TABLET PO SCH ×2 (07:37→15:59)
[2021-12-29] MEDS: HALOPERIDOL 5 MG TABLET PO PRN ×2 (07:37→15:59)
[2021-12-29 08:08] VITALS: BP 105/71
[2021-12-29 16:11] VITALS: BP 111/75
[2021-12-29 22:02] VITALS: BP 109/70
[2021-12-29 22:10] VITALS: BP 110/75
[2021-12-29] MEDS: ACETAMINOPHEN 325 MG TABLET PO PRN (22:13)
[2021-12-30 05:12] LABS: COVID AG,FIA SOURCE NASAL SWAB
[2021-12-30 08:44] VITALS: BP 102/65
[2021-12-30] MEDS: LORazepam 2 MG TABLET PO PRN ×2 (09:58→15:53)
[2021-12-30] MEDS: PROPRANOLOL HCL 20 MG TABLET PO SCH ×2 (09:58→16:37)
[2021-12-30] MEDS: HALOPERIDOL 5 MG TABLET PO PRN ×2 (09:59→15:53)
[2021-12-30] MEDS: BENZTROPINE MESYLATE 2 MG TABLET PO SCH ×2 (09:59→16:37)
[2021-12-30] MEDS: MULTIVITAMINS WITH MINERALS, THERAPEUTIC TABLET PO SCH (09:59)
[2021-12-30 16:30] VITALS: BP 102/72
[2021-12-31 08:00] VITALS: BP 100/73
[2021-12-31] MEDS: LORazepam 2 MG TABLET PO PRN ×2 (08:21→14:31)
[2021-12-31] MEDS: BENZTROPINE MESYLATE 2 MG TABLET PO SCH ×2 (08:21→17:15)
[2021-12-31] MEDS: PROPRANOLOL HCL 20 MG TABLET PO SCH ×2 (08:21→17:15)
[2021-12-31] MEDS: HALOPERIDOL 5 MG TABLET PO PRN ×2 (08:21→14:30)
[2021-12-31] MEDS: MULTIVITAMINS WITH MINERALS, THERAPEUTIC TABLET PO SCH (08:24)
[2021-12-31 16:17] VITALS: BP 120/80
[2022-01-01 08:00] VITALS: BP 129/84
[2022-01-01] MEDS: PROPRANOLOL HCL 20 MG TABLET PO SCH ×2 (08:20→16:51)
[2022-01-01] MEDS: MULTIVITAMINS WITH MINERALS, THERAPEUTIC TABLET PO SCH (08:20)
[2022-01-01] MEDS: HALOPERIDOL 5 MG TABLET PO PRN ×3 (08:20→19:43)
[2022-01-01] MEDS: BENZTROPINE MESYLATE 2 MG TABLET PO SCH ×2 (08:20→16:51)
[2022-01-01] MEDS: LORazepam 2 MG TABLET PO PRN ×3 (08:20→19:42)
[2022-01-01] MEDS: IBUPROFEN 600 MG TABLET PO PRN (11:14)
[2022-01-01 16:00] VITALS: BP 97/76
[2022-01-02] MEDS: HALOPERIDOL 5 MG TABLET PO PRN (07:56)
[2022-01-02] MEDS: LORazepam 2 MG TABLET PO PRN ×2 (07:56→12:32)
[2022-01-02] MEDS: PROPRANOLOL HCL 20 MG TABLET PO SCH ×2 (07:56→17:13)
[2022-01-02] MEDS: BENZTROPINE MESYLATE 2 MG TABLET PO SCH ×2 (07:56→17:13)
[2022-01-02] MEDS: MULTIVITAMINS WITH MINERALS, THERAPEUTIC TABLET PO SCH (07:57)
[2022-01-02] MEDS: IBUPROFEN 600 MG TABLET PO PRN (08:03)
[2022-01-02 09:09] VITALS: BP 126/82
[2022-01-02 16:07] VITALS: BP 105/69
[2022-01-03] MEDS: IBUPROFEN 600 MG TABLET PO PRN ×2 (01:45→14:35)
[2022-01-03 01:48] VITALS: BP 113/70
[2022-01-03] MEDS: MULTIVITAMINS WITH MINERALS, THERAPEUTIC TABLET PO SCH (07:50)
[2022-01-03] MEDS: BENZTROPINE MESYLATE 2 MG TABLET PO SCH ×2 (07:50→16:24)
[2022-01-03] MEDS: LORazepam 2 MG TABLET PO PRN ×2 (07:50→13:41)
[2022-01-03] MEDS: HALOPERIDOL 5 MG TABLET PO PRN ×2 (07:50→13:41)
[2022-01-03] MEDS: PROPRANOLOL HCL 20 MG TABLET PO SCH ×2 (07:50→16:05)
[2022-01-03 08:36] VITALS: BP 113/76
[2022-01-03] MEDS: MAG HYDROX/AL HYDROX/SIMETH ES 30 ML SUSPENSION UDCUP PO PRN (13:43)
[2022-01-03 16:31] VITALS: BP 93/66
[2022-01-04] MEDS: LORazepam 2 MG TABLET PO PRN ×3 (07:45→18:18)
[2022-01-04] MEDS: HALOPERIDOL 5 MG TABLET PO PRN ×3 (07:45→18:18)
[2022-01-04 08:26] VITALS: BP 119/78
[2022-01-04] MEDS: BENZTROPINE MESYLATE 2 MG TABLET PO SCH ×2 (08:39→16:40)
[2022-01-04] MEDS: PROPRANOLOL HCL 20 MG TABLET PO SCH ×2 (08:39→16:40)
[2022-01-04] MEDS: MULTIVITAMINS WITH MINERALS, THERAPEUTIC TABLET PO SCH (08:39)
[2022-01-04] MEDS: MAG HYDROX/AL HYDROX/SIMETH ES 30 ML SUSPENSION UDCUP PO PRN (10:06)
[2022-01-04] MEDS: RisperiDONE MICROSPHERES 25 MG/2 ML SYRINGE IM SCH (10:07)
[2022-01-04 17:03] VITALS: BP 104/60
[2022-01-05 08:13] VITALS: BP 96/60
[2022-01-05] MEDS: MULTIVITAMINS WITH MINERALS, THERAPEUTIC TABLET PO SCH (08:28)
[2022-01-05] MEDS: PROPRANOLOL HCL 20 MG TABLET PO SCH ×2 (08:28→16:27)
[2022-01-05] MEDS: BENZTROPINE MESYLATE 2 MG TABLET PO SCH ×2 (08:28→16:27)
[2022-01-05] MEDS: HALOPERIDOL 5 MG TABLET PO PRN ×2 (08:28→16:27)
[2022-01-05] MEDS: LORazepam 2 MG TABLET PO PRN ×2 (08:28→16:27)
[2022-01-05] MEDS: MAG HYDROX/AL HYDROX/SIMETH ES 30 ML SUSPENSION UDCUP PO PRN (10:23)
[2022-01-05 16:15] VITALS: BP 114/73
[2022-01-06 04:35] VITALS: BP 138/77
[2022-01-06] MEDS: IBUPROFEN 600 MG TABLET PO PRN (04:35)
[2022-01-06] MEDS: MULTIVITAMINS WITH MINERALS, THERAPEUTIC TABLET PO SCH (07:48)
[2022-01-06] MEDS: PROPRANOLOL HCL 20 MG TABLET PO SCH ×2 (07:48→17:05)
[2022-01-06] MEDS: LORazepam 2 MG TABLET PO PRN ×3 (07:48→19:17)
[2022-01-06] MEDS: HALOPERIDOL 5 MG TABLET PO PRN ×3 (07:48→19:17)
[2022-01-06] MEDS: BENZTROPINE MESYLATE 2 MG TABLET PO SCH ×2 (07:48→17:05)
[2022-01-06 07:56] LABS: COVID AG,FIA SOURCE NASAL SWAB
[2022-01-06 08:19] VITALS: BP 97/59
[2022-01-06 16:48] VITALS: BP 97/69
[2022-01-07 08:34] VITALS: BP 110/70
[2022-01-07] MEDS: BENZTROPINE MESYLATE 2 MG TABLET PO SCH ×2 (09:13→16:58)
[2022-01-07] MEDS: PROPRANOLOL HCL 20 MG TABLET PO SCH ×2 (09:13→16:58)
[2022-01-07] MEDS: LORazepam 2 MG TABLET PO PRN ×2 (09:13→14:28)
[2022-01-07] MEDS: HALOPERIDOL 5 MG TABLET PO PRN ×2 (09:13→14:28)
[2022-01-07] MEDS: MULTIVITAMINS WITH MINERALS, THERAPEUTIC TABLET PO SCH (09:14)
[2022-01-07 16:06] VITALS: BP 111/70
[2022-01-08] MEDS: HALOPERIDOL 5 MG TABLET PO PRN ×3 (07:29→18:05)
[2022-01-08] MEDS: PROPRANOLOL HCL 20 MG TABLET PO SCH ×2 (07:29→16:34)
[2022-01-08] MEDS: MULTIVITAMINS WITH MINERALS, THERAPEUTIC TABLET PO SCH (07:29)
[2022-01-08] MEDS: BENZTROPINE MESYLATE 2 MG TABLET PO SCH ×2 (07:29→16:34)
[2022-01-08] MEDS: LORazepam 2 MG TABLET PO PRN ×3 (07:29→18:05)
[2022-01-08 08:40] VITALS: BP 108/61
[2022-01-08 16:15] VITALS: BP 138/78
[2022-01-09] MEDS: BENZTROPINE MESYLATE 2 MG TABLET PO SCH ×2 (08:09→16:33)
[2022-01-09] MEDS: MULTIVITAMINS WITH MINERALS, THERAPEUTIC TABLET PO SCH (08:09)
[2022-01-09] MEDS: HALOPERIDOL 5 MG TABLET PO PRN ×3 (08:09→16:55)
[2022-01-09] MEDS: LORazepam 2 MG TABLET PO PRN ×3 (08:09→16:55)
[2022-01-09] MEDS: PROPRANOLOL HCL 20 MG TABLET PO SCH ×2 (08:10→16:33)
[2022-01-09 08:22] VITALS: BP 106/60
[2022-01-09 16:48] VITALS: BP 110/67
[2022-01-09 20:34] VITALS: BP 106/59
[2022-01-10] MEDS: MULTIVITAMINS WITH MINERALS, THERAPEUTIC TABLET PO SCH (08:20)
[2022-01-10] MEDS: BENZTROPINE MESYLATE 2 MG TABLET PO SCH ×2 (08:21→17:12)
[2022-01-10] MEDS: PROPRANOLOL HCL 20 MG TABLET PO SCH ×2 (08:21→17:12)
[2022-01-10] MEDS: LORazepam 2 MG TABLET PO PRN ×2 (08:23→18:09)
[2022-01-10] MEDS: HALOPERIDOL 5 MG TABLET PO PRN ×2 (08:23→18:09)
[2022-01-10 08:28] VITALS: BP 122/78
[2022-01-10 16:18] VITALS: BP 106/77
[2022-01-11] MEDS: LORazepam 2 MG TABLET PO PRN ×3 (01:49→15:35)
[2022-01-11 01:50] VITALS: BP 118/82
[2022-01-11] MEDS: IBUPROFEN 600 MG TABLET PO PRN ×2 (01:50→22:21)
[2022-01-11 08:19] VITALS: BP 96/60
[2022-01-11] MEDS: HALOPERIDOL 5 MG TABLET PO PRN ×2 (09:09→15:35)
[2022-01-11] MEDS: BENZTROPINE MESYLATE 2 MG TABLET PO SCH ×2 (09:10→16:16)
[2022-01-11] MEDS: MULTIVITAMINS WITH MINERALS, THERAPEUTIC TABLET PO SCH (09:10)
[2022-01-11] MEDS: PROPRANOLOL HCL 20 MG TABLET PO SCH ×2 (09:10→16:16)
[2022-01-11 16:06] VITALS: BP 108/72
[2022-01-12 07:04] LABS: COVID AG,FIA SOURCE NASAL SWAB
[2022-01-12 08:00] VITALS: BP 104/61
[2022-01-12] MEDS: BENZTROPINE MESYLATE 2 MG TABLET PO SCH ×2 (09:06→17:18)
[2022-01-12] MEDS: PROPRANOLOL HCL 20 MG TABLET PO SCH ×2 (09:06→17:18)
[2022-01-12] MEDS: MULTIVITAMINS WITH MINERALS, THERAPEUTIC TABLET PO SCH (09:06)
[2022-01-12] MEDS: HALOPERIDOL 5 MG TABLET PO PRN ×2 (09:06→14:20)
[2022-01-12] MEDS: LORazepam 2 MG TABLET PO PRN ×2 (09:07→14:20)
[2022-01-12 16:17] VITALS: BP 110/81
[2022-01-13] MEDS: PROPRANOLOL HCL 20 MG TABLET PO SCH ×2 (07:39→16:05)
[2022-01-13] MEDS: BENZTROPINE MESYLATE 2 MG TABLET PO SCH ×2 (07:39→16:05)
[2022-01-13] MEDS: HALOPERIDOL 5 MG TABLET PO PRN ×3 (07:39→16:05)
[2022-01-13] MEDS: LORazepam 2 MG TABLET PO PRN ×3 (07:39→16:05)
[2022-01-13] MEDS: MULTIVITAMINS WITH MINERALS, THERAPEUTIC TABLET PO SCH (07:39)
[2022-01-13 08:00] VITALS: BP 135/82
[2022-01-13 16:00] VITALS: BP 119/83
[2022-01-14 08:00] VITALS: BP 104/70
[2022-01-14] MEDS: LORazepam 2 MG TABLET PO PRN ×2 (08:16→13:01)
[2022-01-14] MEDS: PROPRANOLOL HCL 20 MG TABLET PO SCH ×2 (08:16→18:03)
[2022-01-14] MEDS: HALOPERIDOL 5 MG TABLET PO PRN ×2 (08:16→13:01)
[2022-01-14] MEDS: BENZTROPINE MESYLATE 2 MG TABLET PO SCH ×2 (08:16→18:02)
[2022-01-14] MEDS: MULTIVITAMINS WITH MINERALS, THERAPEUTIC TABLET PO SCH (08:16)
[2022-01-14 16:25] VITALS: BP 139/78
[2022-01-15] MEDS: LORazepam 2 MG TABLET PO PRN ×3 (06:12→20:31)
[2022-01-15] MEDS: HALOPERIDOL 5 MG TABLET PO PRN ×3 (06:12→20:31)
[2022-01-15] MEDS: PROPRANOLOL HCL 20 MG TABLET PO SCH ×2 (09:03→16:48)
[2022-01-15] MEDS: BENZTROPINE MESYLATE 2 MG TABLET PO SCH ×2 (09:03→16:48)
[2022-01-15] MEDS: MULTIVITAMINS WITH MINERALS, THERAPEUTIC TABLET PO SCH (09:04)
[2022-01-15 09:36] VITALS: BP 101/67
[2022-01-16 08:00] VITALS: BP 111/75
[2022-01-16] MEDS: BENZTROPINE MESYLATE 2 MG TABLET PO SCH ×2 (09:09→16:31)
[2022-01-16] MEDS: MULTIVITAMINS WITH MINERALS, THERAPEUTIC TABLET PO SCH (09:09)
[2022-01-16] MEDS: PROPRANOLOL HCL 20 MG TABLET PO SCH ×2 (09:09→16:31)
[2022-01-16] MEDS: LORazepam 2 MG TABLET PO PRN ×2 (09:09→16:31)
[2022-01-16] MEDS: HALOPERIDOL 5 MG TABLET PO PRN (16:31)
[2022-01-17 08:36] VITALS: BP 111/81
[2022-01-17] MEDS: LORazepam 2 MG TABLET PO PRN ×2 (09:27→16:00)
[2022-01-17] MEDS: MULTIVITAMINS WITH MINERALS, THERAPEUTIC TABLET PO SCH (09:27)
[2022-01-17] MEDS: HALOPERIDOL 5 MG TABLET PO PRN (09:27)
[2022-01-17] MEDS: PROPRANOLOL HCL 20 MG TABLET PO SCH ×2 (09:28→16:01)
[2022-01-17] MEDS: BENZTROPINE MESYLATE 2 MG TABLET PO SCH ×2 (09:28→16:01)
[2022-01-17] MEDS: MAG HYDROX/AL HYDROX/SIMETH ES 30 ML SUSPENSION UDCUP PO PRN ×2 (09:55→16:01)
[2022-01-17] MEDS: OMEPRAZOLE 20 MG CAPSULE PO PRN (16:00)
[2022-01-17 16:53] VITALS: BP 107/67
[2022-01-18 07:42] VITALS: BP 121/83
[2022-01-18] MEDS: OMEPRAZOLE 20 MG CAPSULE PO PRN (07:48)
[2022-01-18] MEDS: MAG HYDROX/AL HYDROX/SIMETH ES 30 ML SUSPENSION UDCUP PO PRN ×2 (07:48→15:09)
[2022-01-18] MEDS: IBUPROFEN 600 MG TABLET PO PRN (07:48)
[2022-01-18] MEDS: LORazepam 2 MG TABLET PO PRN ×2 (09:11→15:09)
[2022-01-18] MEDS: MULTIVITAMINS WITH MINERALS, THERAPEUTIC TABLET PO SCH (09:11)
[2022-01-18] MEDS: HALOPERIDOL 5 MG TABLET PO PRN (09:11)
[2022-01-18] MEDS: BENZTROPINE MESYLATE 2 MG TABLET PO SCH ×2 (09:11→16:19)
[2022-01-18] MEDS: PROPRANOLOL HCL 20 MG TABLET PO SCH ×2 (09:12→16:19)
[2022-01-18 09:52] VITALS: BP 95/56
[2022-01-18] MEDS: RisperiDONE MICROSPHERES 25 MG/2 ML SYRINGE IM SCH (12:27)
[2022-01-18 16:07] VITALS: BP 118/72
[2022-01-19 03:15] VITALS: BP 113/81
[2022-01-19] MEDS: IBUPROFEN 600 MG TABLET PO PRN ×2 (03:23→12:42)
[2022-01-19 05:46] LABS: COVID AG,FIA SOURCE NASAL SWAB
[2022-01-19] MEDS: OMEPRAZOLE 20 MG CAPSULE PO SCH (06:42)
[2022-01-19] MEDS ORDERED: OMEPRAZOLE 20 MG CAPSULE PO SCH (07:00)
[2022-01-19 08:00] VITALS: BP 149/85
[2022-01-19] MEDS: PROPRANOLOL HCL 20 MG TABLET PO SCH ×2 (09:19→17:04)
[2022-01-19] MEDS: BENZTROPINE MESYLATE 2 MG TABLET PO SCH ×2 (09:19→17:04)
[2022-01-19] MEDS: HALOPERIDOL 5 MG TABLET PO PRN ×3 (09:19→18:50)
[2022-01-19] MEDS: LORazepam 2 MG TABLET PO PRN ×3 (09:19→18:50)
[2022-01-19] MEDS: MULTIVITAMINS WITH MINERALS, THERAPEUTIC TABLET PO SCH (09:19)
[2022-01-19] MEDS: MAG HYDROX/AL HYDROX/SIMETH ES 30 ML SUSPENSION UDCUP PO PRN (12:42)
[2022-01-19 16:13] VITALS: BP 99/69
[2022-01-20] MEDS: OMEPRAZOLE 20 MG CAPSULE PO SCH (06:26)
[2022-01-20] MEDS: BENZTROPINE MESYLATE 2 MG TABLET PO SCH ×2 (09:16→16:44)
[2022-01-20] MEDS: PROPRANOLOL HCL 20 MG TABLET PO SCH ×2 (09:16→16:44)
[2022-01-20] MEDS: MULTIVITAMINS WITH MINERALS, THERAPEUTIC TABLET PO SCH (09:17)
[2022-01-20] MEDS: HALOPERIDOL 5 MG TABLET PO PRN ×2 (09:30→14:03)
[2022-01-20] MEDS: LORazepam 2 MG TABLET PO PRN ×2 (09:30→14:03)
[2022-01-20] MEDS: MAG HYDROX/AL HYDROX/SIMETH ES 30 ML SUSPENSION UDCUP PO PRN (09:35)
[2022-01-20 09:37] VITALS: BP 126/84
[2022-01-20 16:00] VITALS: BP 99/59
[2022-01-20 17:35] VITALS: BP 99/59
[2022-01-20] MEDS: IBUPROFEN 600 MG TABLET PO PRN (17:35)
[2022-01-21] MEDS: OMEPRAZOLE 20 MG CAPSULE PO SCH (06:16)
[2022-01-21 08:54] VITALS: BP 91/55
[2022-01-21] MEDS: PROPRANOLOL HCL 20 MG TABLET PO SCH ×2 (09:05→16:16)
[2022-01-21] MEDS: MULTIVITAMINS WITH MINERALS, THERAPEUTIC TABLET PO SCH (09:05)
[2022-01-21] MEDS: BENZTROPINE MESYLATE 2 MG TABLET PO SCH ×2 (09:05→16:16)
[2022-01-21 09:06] VITALS: BP 110/65
[2022-01-21] MEDS: LORazepam 2 MG TABLET PO PRN ×2 (09:06→16:08)
[2022-01-21 16:08] VITALS: BP 110/75
[2022-01-21 16:12] VITALS: BP 109/75
[2022-01-21] MEDS: AMOXICILLIN TRIHYDRATE 500 MG CAPSULE PO SCH ×2 (17:00→17:08)
[2022-01-22] MEDS: OMEPRAZOLE 20 MG CAPSULE PO SCH (06:03)
[2022-01-22] MEDS: AMOXICILLIN TRIHYDRATE 500 MG CAPSULE PO SCH ×3 (08:48→16:45)
[2022-01-22] MEDS: PROPRANOLOL HCL 20 MG TABLET PO SCH ×2 (08:48→16:45)
[2022-01-22] MEDS: BENZTROPINE MESYLATE 2 MG TABLET PO SCH ×2 (08:48→16:45)
[2022-01-22] MEDS: MULTIVITAMINS WITH MINERALS, THERAPEUTIC TABLET PO SCH (08:48)
[2022-01-22] MEDS: MAG HYDROX/AL HYDROX/SIMETH ES 30 ML SUSPENSION UDCUP PO PRN (08:49)
[2022-01-22 10:01] VITALS: BP 108/75
[2022-01-22 12:37] VITALS: BP 112/68
[2022-01-22] MEDS: LORazepam 2 MG TABLET PO PRN (12:37)
[2022-01-22 16:00] VITALS: BP 104/71
[2022-01-23] MEDS: OMEPRAZOLE 20 MG CAPSULE PO SCH (06:53)
[2022-01-23 08:00] VITALS: BP 124/69
[2022-01-23] MEDS: AMOXICILLIN TRIHYDRATE 500 MG CAPSULE PO SCH ×3 (09:00→16:28)
[2022-01-23] MEDS: BENZTROPINE MESYLATE 2 MG TABLET PO SCH ×2 (09:08→16:28)
[2022-01-23] MEDS: MULTIVITAMINS WITH MINERALS, THERAPEUTIC TABLET PO SCH (09:08)
[2022-01-23] MEDS: PROPRANOLOL HCL 20 MG TABLET PO SCH ×2 (09:08→16:28)
[2022-01-23] MEDS: MAG HYDROX/AL HYDROX/SIMETH ES 30 ML SUSPENSION UDCUP PO PRN (09:13)
[2022-01-23 10:23] VITALS: BP 128/71
[2022-01-23] MEDS: HALOPERIDOL 5 MG TABLET PO PRN ×3 (10:23→21:00)
[2022-01-23] MEDS: LORazepam 2 MG TABLET PO PRN ×3 (10:23→21:00)
[2022-01-23 15:14] VITALS: BP 119/63
[2022-01-23 16:11] VITALS: BP 99/79
[2022-01-24] MEDS: OMEPRAZOLE 20 MG CAPSULE PO SCH (06:28)
[2022-01-24] MEDS: AMOXICILLIN TRIHYDRATE 500 MG CAPSULE PO SCH ×3 (09:00→16:59)
[2022-01-24 10:18] VITALS: BP 109/74
[2022-01-24] MEDS: HALOPERIDOL 5 MG TABLET PO PRN ×2 (10:20→16:59)
[2022-01-24] MEDS: LORazepam 2 MG TABLET PO PRN ×2 (10:20→16:59)
[2022-01-24] MEDS: PROPRANOLOL HCL 20 MG TABLET PO SCH ×2 (10:20→16:59)
[2022-01-24] MEDS: MULTIVITAMINS WITH MINERALS, THERAPEUTIC TABLET PO SCH (10:20)
[2022-01-24] MEDS: BENZTROPINE MESYLATE 2 MG TABLET PO SCH ×2 (10:21→16:59)
[2022-01-24 16:04] VITALS: BP 103/77
[2022-01-25] MEDS: OMEPRAZOLE 20 MG CAPSULE PO SCH (06:37)
[2022-01-25] MEDS: BENZTROPINE MESYLATE 2 MG TABLET PO SCH ×2 (08:50→17:21)
[2022-01-25] MEDS: HALOPERIDOL 5 MG TABLET PO PRN ×3 (08:50→17:21)
[2022-01-25] MEDS: PROPRANOLOL HCL 20 MG TABLET PO SCH ×2 (08:50→17:21)
[2022-01-25] MEDS: MULTIVITAMINS WITH MINERALS, THERAPEUTIC TABLET PO SCH (08:50)
[2022-01-25] MEDS: LORazepam 2 MG TABLET PO PRN ×3 (08:50→17:21)
[2022-01-25] MEDS: MAG HYDROX/AL HYDROX/SIMETH ES 30 ML SUSPENSION UDCUP PO PRN (08:51)
[2022-01-25] MEDS: AMOXICILLIN TRIHYDRATE 500 MG CAPSULE PO SCH ×3 (09:00→17:00)
[2022-01-25 09:39] VITALS: BP 109/59
[2022-01-25 16:13] VITALS: BP 114/74
[2022-01-26] MEDS: OMEPRAZOLE 20 MG CAPSULE PO SCH (06:19)
[2022-01-26 07:43] LABS: COVID AG,FIA SOURCE NASAL SWAB
[2022-01-26] MEDS: AMOXICILLIN TRIHYDRATE 500 MG CAPSULE PO SCH ×3 (09:00→17:00)
[2022-01-26] MEDS: BENZTROPINE MESYLATE 2 MG TABLET PO SCH ×2 (09:32→17:43)
[2022-01-26] MEDS: MULTIVITAMINS WITH MINERALS, THERAPEUTIC TABLET PO SCH (09:32)
[2022-01-26] MEDS: PROPRANOLOL HCL 20 MG TABLET PO SCH ×2 (09:32→17:43)
[2022-01-26] MEDS: LORazepam 2 MG TABLET PO PRN ×3 (09:48→18:41)
[2022-01-26] MEDS: HALOPERIDOL 5 MG TABLET PO PRN ×3 (09:48→18:41)
[2022-01-26] MEDS: MAG HYDROX/AL HYDROX/SIMETH ES 30 ML SUSPENSION UDCUP PO PRN (09:50)
[2022-01-26 09:59] VITALS: BP 105/75
[2022-01-26 16:00] VITALS: BP 114/80
[2022-01-27] MEDS: OMEPRAZOLE 20 MG CAPSULE PO SCH (06:33)
[2022-01-27 08:30] VITALS: BP 100/58
[2022-01-27] MEDS: PROPRANOLOL HCL 20 MG TABLET PO SCH ×2 (09:00→17:45)
[2022-01-27] MEDS: AMOXICILLIN TRIHYDRATE 500 MG CAPSULE PO SCH ×3 (09:00→16:13)
[2022-01-27] MEDS: MULTIVITAMINS WITH MINERALS, THERAPEUTIC TABLET PO SCH (09:03)
[2022-01-27] MEDS: BENZTROPINE MESYLATE 2 MG TABLET PO SCH ×2 (09:04→16:13)
[2022-01-27 10:14] VITALS: BP 144/83
[2022-01-27] MEDS: LORazepam 2 MG TABLET PO PRN ×2 (10:16→16:10)
[2022-01-27] MEDS: HALOPERIDOL 5 MG TABLET PO PRN ×2 (10:16→16:10)
[2022-01-27 16:00] VITALS: BP 101/72
[2022-01-27 16:20] VITALS: BP 101/72
[2022-01-27 17:43] VITALS: BP 126/91
[2022-01-28] MEDS: OMEPRAZOLE 20 MG CAPSULE PO SCH (06:38)
[2022-01-28 08:38] VITALS: BP 110/74
[2022-01-28] MEDS: LORazepam 2 MG TABLET PO PRN ×2 (08:40→14:13)
[2022-01-28] MEDS: MULTIVITAMINS WITH MINERALS, THERAPEUTIC TABLET PO SCH (08:40)
[2022-01-28] MEDS: BENZTROPINE MESYLATE 2 MG TABLET PO SCH ×2 (08:40→16:40)
[2022-01-28] MEDS: PROPRANOLOL HCL 20 MG TABLET PO SCH ×2 (08:41→16:40)
[2022-01-28] MEDS: AMOXICILLIN TRIHYDRATE 500 MG CAPSULE PO SCH ×3 (08:44→16:42)
[2022-01-28] MEDS: MAG HYDROX/AL HYDROX/SIMETH ES 30 ML SUSPENSION UDCUP PO PRN (11:51)
[2022-01-28] MEDS: HALOPERIDOL 5 MG TABLET PO PRN (14:13)
[2022-01-28 16:00] VITALS: BP 106/71
[2022-01-29] MEDS: OMEPRAZOLE 20 MG CAPSULE PO SCH (06:12)
[2022-01-29] MEDS: PROPRANOLOL HCL 20 MG TABLET PO SCH ×2 (08:48→16:22)
[2022-01-29] MEDS: AMOXICILLIN TRIHYDRATE 500 MG CAPSULE PO SCH ×3 (08:49→16:23)
[2022-01-29] MEDS: BENZTROPINE MESYLATE 2 MG TABLET PO SCH ×2 (08:49→16:23)
[2022-01-29] MEDS: MULTIVITAMINS WITH MINERALS, THERAPEUTIC TABLET PO SCH (08:50)
[2022-01-29] MEDS: LORazepam 2 MG TABLET PO PRN ×2 (08:51→14:08)
[2022-01-29] MEDS: HALOPERIDOL 5 MG TABLET PO PRN ×2 (08:51→14:08)
[2022-01-29 09:34] VITALS: BP 112/77
[2022-01-29] MEDS: MAG HYDROX/AL HYDROX/SIMETH ES 30 ML SUSPENSION UDCUP PO PRN (16:23)
[2022-01-29 16:42] VITALS: BP 108/74
[2022-01-30] MEDS: OMEPRAZOLE 20 MG CAPSULE PO SCH (06:50)
[2022-01-30] MEDS: AMOXICILLIN TRIHYDRATE 500 MG CAPSULE PO SCH ×3 (08:22→17:00)
[2022-01-30] MEDS: MULTIVITAMINS WITH MINERALS, THERAPEUTIC TABLET PO SCH (08:23)
[2022-01-30] MEDS: HALOPERIDOL 5 MG TABLET PO PRN ×2 (08:23→21:57)
[2022-01-30] MEDS: BENZTROPINE MESYLATE 2 MG TABLET PO SCH ×2 (08:23→16:55)
[2022-01-30] MEDS: LORazepam 2 MG TABLET PO PRN ×2 (08:24→21:57)
[2022-01-30] MEDS: MAG HYDROX/AL HYDROX/SIMETH ES 30 ML SUSPENSION UDCUP PO PRN ×2 (08:25→16:55)
[2022-01-30] MEDS: PROPRANOLOL HCL 20 MG TABLET PO SCH ×2 (08:31→16:55)
[2022-01-30 10:57] VITALS: BP 123/80
[2022-01-30] MEDS: NICOTINE 21 MG/24 HOUR PATCH TD PRN (15:13)
[2022-01-30 17:54] VITALS: BP 124/82
[2022-01-31] MEDS: OMEPRAZOLE 20 MG CAPSULE PO SCH (06:23)
[2022-01-31] MEDS: HALOPERIDOL 5 MG TABLET PO PRN ×2 (08:53→20:49)
[2022-01-31] MEDS: MULTIVITAMINS WITH MINERALS, THERAPEUTIC TABLET PO SCH (08:53)
[2022-01-31] MEDS: LORazepam 2 MG TABLET PO PRN ×3 (08:53→20:49)
[2022-01-31] MEDS: PROPRANOLOL HCL 20 MG TABLET PO SCH ×2 (08:53→16:42)
[2022-01-31] MEDS: BENZTROPINE MESYLATE 2 MG TABLET PO SCH ×2 (08:53→16:43)
[2022-01-31] MEDS: AMOXICILLIN TRIHYDRATE 500 MG CAPSULE PO SCH ×2 (08:54→12:12)
[2022-01-31] MEDS: MAG HYDROX/AL HYDROX/SIMETH ES 30 ML SUSPENSION UDCUP PO PRN (08:55)
[2022-01-31 09:10] VITALS: BP 120/83
[2022-01-31 16:37] VITALS: BP 111/76
[2022-02-01] MEDS: OMEPRAZOLE 20 MG CAPSULE PO SCH (06:30)
[2022-02-01 08:00] VITALS: BP 120/71
[2022-02-01] MEDS: MULTIVITAMINS WITH MINERALS, THERAPEUTIC TABLET PO SCH (08:57)
[2022-02-01] MEDS: HALOPERIDOL 5 MG TABLET PO PRN ×2 (08:57→14:56)
[2022-02-01] MEDS: BENZTROPINE MESYLATE 2 MG TABLET PO SCH ×2 (08:57→18:30)
[2022-02-01] MEDS: LORazepam 2 MG TABLET PO PRN ×2 (08:57→14:56)
[2022-02-01] MEDS: PROPRANOLOL HCL 20 MG TABLET PO SCH ×2 (08:57→18:30)
[2022-02-01] MEDS: MAG HYDROX/AL HYDROX/SIMETH ES 30 ML SUSPENSION UDCUP PO PRN (08:59)
[2022-02-01] MEDS: RisperiDONE MICROSPHERES 25 MG/2 ML SYRINGE IM SCH (09:00)
[2022-02-01 16:40] VITALS: BP 104/71
[2022-02-02] MEDS: OMEPRAZOLE 20 MG CAPSULE PO SCH (06:21)
[2022-02-02 08:00] VITALS: BP 104/73
[2022-02-02 08:32] LABS: COVID AG,FIA SOURCE NASAL SWAB
[2022-02-02] MEDS: PROPRANOLOL HCL 20 MG TABLET PO SCH ×2 (08:50→17:06)
[2022-02-02] MEDS: HALOPERIDOL 5 MG TABLET PO PRN ×3 (08:50→17:06)
[2022-02-02] MEDS: BENZTROPINE MESYLATE 2 MG TABLET PO SCH ×2 (08:50→17:06)
[2022-02-02] MEDS: LORazepam 2 MG TABLET PO PRN ×3 (08:50→17:06)
[2022-02-02] MEDS: MULTIVITAMINS WITH MINERALS, THERAPEUTIC TABLET PO SCH (08:51)
[2022-02-02 16:47] VITALS: BP 121/84
[2022-02-03] MEDS: OMEPRAZOLE 20 MG CAPSULE PO SCH (06:39)
[2022-02-03 08:00] VITALS: BP 106/70
[2022-02-03] MEDS: PROPRANOLOL HCL 20 MG TABLET PO SCH ×2 (08:49→16:17)
[2022-02-03] MEDS: BENZTROPINE MESYLATE 2 MG TABLET PO SCH ×2 (08:49→16:17)
[2022-02-03] MEDS: MULTIVITAMINS WITH MINERALS, THERAPEUTIC TABLET PO SCH (08:49)
[2022-02-03] MEDS: HALOPERIDOL 5 MG TABLET PO PRN ×3 (09:05→18:37)
[2022-02-03] MEDS: LORazepam 2 MG TABLET PO PRN ×3 (09:05→18:38)
[2022-02-03 16:07] VITALS: BP 118/77
[2022-02-04] MEDS: OMEPRAZOLE 20 MG CAPSULE PO SCH (06:22)
[2022-02-04 08:05] VITALS: BP 106/76
[2022-02-04] MEDS: MULTIVITAMINS WITH MINERALS, THERAPEUTIC TABLET PO SCH (08:51)
[2022-02-04] MEDS: PROPRANOLOL HCL 20 MG TABLET PO SCH ×2 (08:51→16:17)
[2022-02-04] MEDS: BENZTROPINE MESYLATE 2 MG TABLET PO SCH ×2 (08:51→16:17)
[2022-02-04] MEDS: LORazepam 2 MG TABLET PO PRN ×2 (09:02→14:11)
[2022-02-04] MEDS: HALOPERIDOL 5 MG TABLET PO PRN ×2 (09:02→14:11)
[2022-02-04 16:12] VITALS: BP 132/70
[2022-02-05] MEDS: OMEPRAZOLE 20 MG CAPSULE PO SCH (06:18)
[2022-02-05 08:00] VITALS: BP 111/73
[2022-02-05] MEDS: MULTIVITAMINS WITH MINERALS, THERAPEUTIC TABLET PO SCH (08:54)
[2022-02-05] MEDS: BENZTROPINE MESYLATE 2 MG TABLET PO SCH ×2 (08:54→16:25)
[2022-02-05] MEDS: LORazepam 2 MG TABLET PO PRN ×2 (08:54→15:27)
[2022-02-05] MEDS: HALOPERIDOL 5 MG TABLET PO PRN ×2 (08:54→15:27)
[2022-02-05] MEDS: PROPRANOLOL HCL 20 MG TABLET PO SCH ×2 (08:54→16:25)
[2022-02-05 16:05] VITALS: BP 105/69
[2022-02-06] MEDS: OMEPRAZOLE 20 MG CAPSULE PO SCH (06:17)
[2022-02-06] MEDS: MULTIVITAMINS WITH MINERALS, THERAPEUTIC TABLET PO SCH (08:17)
[2022-02-06] MEDS: HALOPERIDOL 5 MG TABLET PO PRN ×2 (08:17→12:55)
[2022-02-06] MEDS: BENZTROPINE MESYLATE 2 MG TABLET PO SCH ×2 (08:17→16:10)
[2022-02-06] MEDS: LORazepam 2 MG TABLET PO PRN ×2 (08:17→12:55)
[2022-02-06] MEDS: PROPRANOLOL HCL 20 MG TABLET PO SCH ×2 (08:17→16:10)
[2022-02-06 10:56] VITALS: BP 109/75
[2022-02-06] MEDS: MAG HYDROX/AL HYDROX/SIMETH ES 30 ML SUSPENSION UDCUP PO PRN (12:08)
[2022-02-06 16:46] VITALS: BP 112/75
[2022-02-07] MEDS: OMEPRAZOLE 20 MG CAPSULE PO SCH (06:32)
[2022-02-07 09:06] VITALS: BP 131/84
[2022-02-07] MEDS: PROPRANOLOL HCL 20 MG TABLET PO SCH ×2 (09:23→17:54)
[2022-02-07] MEDS: LORazepam 2 MG TABLET PO PRN ×3 (09:25→18:29)
[2022-02-07] MEDS: MULTIVITAMINS WITH MINERALS, THERAPEUTIC TABLET PO SCH (09:25)
[2022-02-07] MEDS: BENZTROPINE MESYLATE 2 MG TABLET PO SCH ×2 (09:25→17:54)
[2022-02-07] MEDS: HALOPERIDOL 5 MG TABLET PO PRN ×3 (09:25→18:29)
[2022-02-07] MEDS: NICOTINE 21 MG/24 HOUR PATCH TD PRN (09:33)
[2022-02-07 17:01] VITALS: BP 113/71
[2022-02-08] MEDS: OMEPRAZOLE 20 MG CAPSULE PO SCH (06:42)
[2022-02-08] MEDS: MULTIVITAMINS WITH MINERALS, THERAPEUTIC TABLET PO SCH (08:53)
[2022-02-08] MEDS: BENZTROPINE MESYLATE 2 MG TABLET PO SCH ×2 (08:53→17:06)
[2022-02-08] MEDS: PROPRANOLOL HCL 20 MG TABLET PO SCH ×2 (08:53→17:07)
[2022-02-08 09:00] VITALS: BP 120/80
[2022-02-08] MEDS: LORazepam 2 MG TABLET PO PRN ×2 (09:06→17:06)
[2022-02-08] MEDS: HALOPERIDOL 5 MG TABLET PO PRN ×2 (09:06→17:06)
[2022-02-08 16:21] VITALS: BP 118/74
[2022-02-09] MEDS: OMEPRAZOLE 20 MG CAPSULE PO SCH (06:51)
[2022-02-09 07:14] LABS: COVID AG,FIA SOURCE NASAL SWAB
[2022-02-09 08:00] VITALS: BP 102/67
[2022-02-09] MEDS: PROPRANOLOL HCL 20 MG TABLET PO SCH ×2 (08:58→18:37)
[2022-02-09] MEDS: HALOPERIDOL 5 MG TABLET PO PRN ×2 (08:58→13:55)
[2022-02-09] MEDS: MULTIVITAMINS WITH MINERALS, THERAPEUTIC TABLET PO SCH (08:58)
[2022-02-09] MEDS: LORazepam 2 MG TABLET PO PRN ×2 (08:58→13:55)
[2022-02-09] MEDS: BENZTROPINE MESYLATE 2 MG TABLET PO SCH ×2 (08:58→18:36)
[2022-02-09] MEDS: NICOTINE 21 MG/24 HOUR PATCH TD PRN (10:20)
[2022-02-09 16:22] VITALS: BP 106/76
[2022-02-10] MEDS: OMEPRAZOLE 20 MG CAPSULE PO SCH ×3 (06:25→11:34)
[2022-02-10] MEDS: MULTIVITAMINS WITH MINERALS, THERAPEUTIC TABLET PO SCH (08:47)
[2022-02-10] MEDS: PROPRANOLOL HCL 20 MG TABLET PO SCH ×2 (08:47→16:58)
[2022-02-10] MEDS: BENZTROPINE MESYLATE 2 MG TABLET PO SCH ×2 (08:48→16:17)
[2022-02-10] MEDS: HALOPERIDOL 5 MG TABLET PO PRN ×2 (09:22→13:59)
[2022-02-10] MEDS: LORazepam 2 MG TABLET PO PRN ×2 (09:22→13:59)
[2022-02-10 10:54] VITALS: BP 119/79
[2022-02-10 16:07] VITALS: BP 104/63
[2022-02-10 16:56] VITALS: BP 129/69
[2022-02-11] MEDS: OMEPRAZOLE 20 MG CAPSULE PO SCH (06:20)
[2022-02-11] MEDS: MULTIVITAMINS WITH MINERALS, THERAPEUTIC TABLET PO SCH (08:19)
[2022-02-11] MEDS: BENZTROPINE MESYLATE 2 MG TABLET PO SCH ×2 (08:19→16:30)
[2022-02-11] MEDS: HALOPERIDOL 5 MG TABLET PO PRN ×2 (08:20→14:10)
[2022-02-11] MEDS: LORazepam 2 MG TABLET PO PRN ×2 (08:20→14:10)
[2022-02-11] MEDS: PROPRANOLOL HCL 20 MG TABLET PO SCH ×2 (10:08→16:29)
[2022-02-11 10:38] VITALS: BP 118/84
[2022-02-11 16:27] VITALS: BP 108/72
[2022-02-12] MEDS: OMEPRAZOLE 20 MG CAPSULE PO SCH (06:20)
[2022-02-12] MEDS: PROPRANOLOL HCL 20 MG TABLET PO SCH ×2 (09:29→16:18)
[2022-02-12] MEDS: MULTIVITAMINS WITH MINERALS, THERAPEUTIC TABLET PO SCH (09:29)
[2022-02-12] MEDS: BENZTROPINE MESYLATE 2 MG TABLET PO SCH ×2 (09:29→16:19)
[2022-02-12 10:11] VITALS: BP 128/86
[2022-02-12] MEDS: LORazepam 2 MG TABLET PO PRN (10:54)
[2022-02-12] MEDS: NICOTINE 21 MG/24 HOUR PATCH TD PRN (16:19)
[2022-02-12 16:35] VITALS: BP 107/80
[2022-02-13] MEDS: OMEPRAZOLE 20 MG CAPSULE PO SCH (06:33)
[2022-02-13] MEDS: MULTIVITAMINS WITH MINERALS, THERAPEUTIC TABLET PO SCH (08:24)
[2022-02-13] MEDS: BENZTROPINE MESYLATE 2 MG TABLET PO SCH ×2 (08:24→15:57)
[2022-02-13] MEDS: PROPRANOLOL HCL 20 MG TABLET PO SCH ×2 (08:24→15:56)
[2022-02-13] MEDS: LORazepam 2 MG TABLET PO PRN ×2 (08:48→15:02)
[2022-02-13] MEDS: HALOPERIDOL 5 MG TABLET PO PRN ×2 (08:48→15:02)
[2022-02-13 10:32] VITALS: BP 112/78
[2022-02-13] MEDS: NICOTINE 21 MG/24 HOUR PATCH TD PRN (15:57)
[2022-02-13 16:11] VITALS: BP 107/68
[2022-02-14] MEDS: OMEPRAZOLE 20 MG CAPSULE PO SCH (06:26)
[2022-02-14 08:12] VITALS: BP 105/74
[2022-02-14] MEDS: BENZTROPINE MESYLATE 2 MG TABLET PO SCH ×2 (09:05→16:21)
[2022-02-14] MEDS: HALOPERIDOL 5 MG TABLET PO PRN ×3 (09:05→18:47)
[2022-02-14] MEDS: MULTIVITAMINS WITH MINERALS, THERAPEUTIC TABLET PO SCH (09:05)
[2022-02-14] MEDS: PROPRANOLOL HCL 20 MG TABLET PO SCH ×2 (09:05→16:21)
[2022-02-14] MEDS: LORazepam 2 MG TABLET PO PRN ×3 (09:05→18:47)
[2022-02-14 16:13] VITALS: BP 103/72
[2022-02-15] MEDS: OMEPRAZOLE 20 MG CAPSULE PO SCH (06:25)
[2022-02-15 08:00] VITALS: BP 130/75
[2022-02-15] MEDS: MULTIVITAMINS WITH MINERALS, THERAPEUTIC TABLET PO SCH (09:43)
[2022-02-15] MEDS: PROPRANOLOL HCL 20 MG TABLET PO SCH ×2 (09:43→17:33)
[2022-02-15] MEDS: BENZTROPINE MESYLATE 2 MG TABLET PO SCH ×2 (09:43→17:33)
[2022-02-15] MEDS: HALOPERIDOL 5 MG TABLET PO PRN ×2 (09:47→14:04)
[2022-02-15] MEDS: LORazepam 2 MG TABLET PO PRN ×2 (09:47→14:04)
[2022-02-15] MEDS: RisperiDONE MICROSPHERES 25 MG/2 ML SYRINGE IM SCH (14:14)
[2022-02-15 16:31] VITALS: BP 106/79
[2022-02-16] MEDS: OMEPRAZOLE 20 MG CAPSULE PO SCH (06:02)
[2022-02-16 07:08] LABS: COVID AG,FIA SOURCE NASAL SWAB
[2022-02-16 08:00] VITALS: BP 106/83
[2022-02-16] MEDS: MULTIVITAMINS WITH MINERALS, THERAPEUTIC TABLET PO SCH (08:21)
[2022-02-16] MEDS: HALOPERIDOL 5 MG TABLET PO PRN ×2 (08:21→14:59)
[2022-02-16] MEDS: PROPRANOLOL HCL 20 MG TABLET PO SCH ×2 (08:21→16:46)
[2022-02-16] MEDS: BENZTROPINE MESYLATE 2 MG TABLET PO SCH ×2 (08:21→16:46)
[2022-02-16] MEDS: LORazepam 2 MG TABLET PO PRN ×2 (08:21→14:59)
[2022-02-16 16:05] VITALS: BP 117/77
[2022-02-17] MEDS: OMEPRAZOLE 20 MG CAPSULE PO SCH (06:09)
[2022-02-17 08:00] VITALS: BP 130/72
[2022-02-17] MEDS: PROPRANOLOL HCL 20 MG TABLET PO SCH ×2 (09:11→18:07)
[2022-02-17] MEDS: BENZTROPINE MESYLATE 2 MG TABLET PO SCH ×2 (09:11→18:06)
[2022-02-17] MEDS: MULTIVITAMINS WITH MINERALS, THERAPEUTIC TABLET PO SCH (09:11)
[2022-02-17] MEDS: HALOPERIDOL 5 MG TABLET PO PRN ×3 (09:11→18:38)
[2022-02-17] MEDS: LORazepam 2 MG TABLET PO PRN ×3 (09:11→18:38)
[2022-02-17 16:22] VITALS: BP 109/68
[2022-02-18] MEDS: OMEPRAZOLE 20 MG CAPSULE PO SCH (06:18)
[2022-02-18] MEDS: MULTIVITAMINS WITH MINERALS, THERAPEUTIC TABLET PO SCH (08:43)
[2022-02-18] MEDS: PROPRANOLOL HCL 20 MG TABLET PO SCH ×2 (08:43→16:15)
[2022-02-18] MEDS: BENZTROPINE MESYLATE 2 MG TABLET PO SCH ×2 (08:43→16:14)
[2022-02-18] MEDS: HALOPERIDOL 5 MG TABLET PO PRN ×2 (08:49→13:59)
[2022-02-18] MEDS: LORazepam 2 MG TABLET PO PRN ×2 (08:49→13:59)
[2022-02-18 09:54] VITALS: BP 117/68
[2022-02-18 16:27] VITALS: BP 132/68
[2022-02-19] MEDS: OMEPRAZOLE 20 MG CAPSULE PO SCH (06:30)
[2022-02-19 08:00] VITALS: BP 121/87
[2022-02-19] MEDS: HALOPERIDOL 5 MG TABLET PO PRN ×2 (08:18→15:56)
[2022-02-19] MEDS: LORazepam 2 MG TABLET PO PRN ×2 (08:18→15:56)
[2022-02-19] MEDS: BENZTROPINE MESYLATE 2 MG TABLET PO SCH ×2 (08:18→15:56)
[2022-02-19] MEDS: MULTIVITAMINS WITH MINERALS, THERAPEUTIC TABLET PO SCH (08:18)
[2022-02-19] MEDS: PROPRANOLOL HCL 20 MG TABLET PO SCH ×2 (09:32→17:04)
[2022-02-19] MEDS: NICOTINE 21 MG/24 HOUR PATCH TD PRN (15:58)
[2022-02-19 16:00] VITALS: BP 122/71
[2022-02-20] MEDS: OMEPRAZOLE 20 MG CAPSULE PO SCH (06:25)
[2022-02-20] MEDS: MULTIVITAMINS WITH MINERALS, THERAPEUTIC TABLET PO SCH (08:48)
[2022-02-20] MEDS: BENZTROPINE MESYLATE 2 MG TABLET PO SCH ×2 (08:48→16:07)
[2022-02-20] MEDS: PROPRANOLOL HCL 20 MG TABLET PO SCH ×2 (08:48→17:14)
[2022-02-20 09:01] VITALS: BP 101/91
[2022-02-20] MEDS: LORazepam 2 MG TABLET PO PRN ×2 (10:16→15:48)
[2022-02-20 10:19] VITALS: BP 111/72
[2022-02-20] MEDS: NICOTINE 21 MG/24 HOUR PATCH TD PRN (15:47)
[2022-02-20 16:42] VITALS: BP 126/82
[2022-02-21] MEDS: OMEPRAZOLE 20 MG CAPSULE PO SCH (06:24)
[2022-02-21 08:37] VITALS: BP 118/73
[2022-02-21] MEDS: MULTIVITAMINS WITH MINERALS, THERAPEUTIC TABLET PO SCH (08:38)
[2022-02-21] MEDS: BENZTROPINE MESYLATE 2 MG TABLET PO SCH ×2 (08:38→16:52)
[2022-02-21] MEDS: PROPRANOLOL HCL 20 MG TABLET PO SCH ×2 (08:38→16:52)
[2022-02-21] MEDS: NICOTINE 21 MG/24 HOUR PATCH TD PRN (09:07)
[2022-02-21] MEDS: MAG HYDROX/AL HYDROX/SIMETH ES 30 ML SUSPENSION UDCUP PO PRN (11:10)
[2022-02-21] MEDS: LORazepam 2 MG TABLET PO PRN ×2 (11:45→16:52)
[2022-02-21] MEDS: HALOPERIDOL 5 MG TABLET PO PRN ×2 (11:45→16:52)
[2022-02-21 16:00] VITALS: BP 113/72
[2022-02-21 20:40] VITALS: BP 118/87
[2022-02-21] MEDS: ACETAMINOPHEN 325 MG TABLET PO PRN (20:41)
[2022-02-22] MEDS: OMEPRAZOLE 20 MG CAPSULE PO SCH (06:22)
[2022-02-22 09:02] VITALS: BP 117/77
[2022-02-22] MEDS: BENZTROPINE MESYLATE 2 MG TABLET PO SCH ×2 (09:02→17:55)
[2022-02-22] MEDS: HALOPERIDOL 5 MG TABLET PO PRN ×2 (09:02→14:15)
[2022-02-22] MEDS: MULTIVITAMINS WITH MINERALS, THERAPEUTIC TABLET PO SCH (09:02)
[2022-02-22] MEDS: LORazepam 2 MG TABLET PO PRN ×2 (09:02→14:15)
[2022-02-22] MEDS: PROPRANOLOL HCL 20 MG TABLET PO SCH ×3 (09:02→17:55)
[2022-02-22] MEDS: IBUPROFEN 600 MG TABLET PO PRN ×2 (09:02→18:03)
[2022-02-22] MEDS: MAG HYDROX/AL HYDROX/SIMETH ES 30 ML SUSPENSION UDCUP PO PRN (09:03)
[2022-02-22] MEDS: ACETAMINOPHEN 325 MG TABLET PO PRN (14:15)
[2022-02-22 16:27] VITALS: BP 97/65
[2022-02-23] MEDS: OMEPRAZOLE 20 MG CAPSULE PO SCH (06:42)
[2022-02-23 08:21] LABS: COVID AG,FIA SOURCE NASAL SWAB
[2022-02-23] MEDS: HALOPERIDOL 5 MG TABLET PO PRN ×2 (08:42→14:15)
[2022-02-23] MEDS: MULTIVITAMINS WITH MINERALS, THERAPEUTIC TABLET PO SCH (08:42)
[2022-02-23] MEDS: BENZTROPINE MESYLATE 2 MG TABLET PO SCH ×2 (08:42→17:12)
[2022-02-23] MEDS: LORazepam 2 MG TABLET PO PRN ×2 (08:42→14:15)
[2022-02-23] MEDS: PROPRANOLOL HCL 20 MG TABLET PO SCH ×2 (08:42→17:12)
[2022-02-23 12:47] VITALS: BP 111/80
[2022-02-23] MEDS: MAG HYDROX/AL HYDROX/SIMETH ES 30 ML SUSPENSION UDCUP PO PRN (14:15)
[2022-02-23 16:00] VITALS: BP 100/76
[2022-02-24] MEDS: OMEPRAZOLE 20 MG CAPSULE PO SCH (06:08)
[2022-02-24] MEDS: MULTIVITAMINS WITH MINERALS, THERAPEUTIC TABLET PO SCH (08:11)
[2022-02-24] MEDS: HALOPERIDOL 5 MG TABLET PO PRN ×2 (08:11→14:11)
[2022-02-24] MEDS: LORazepam 2 MG TABLET PO PRN ×2 (08:11→14:11)
[2022-02-24] MEDS: BENZTROPINE MESYLATE 2 MG TABLET PO SCH ×2 (08:11→16:32)
[2022-02-24] MEDS: PROPRANOLOL HCL 20 MG TABLET PO SCH ×3 (08:32→17:50)
[2022-02-24 08:33] VITALS: BP 128/69
[2022-02-24] MEDS: MAG HYDROX/AL HYDROX/SIMETH ES 30 ML SUSPENSION UDCUP PO PRN (14:13)
[2022-02-24 16:05] VITALS: BP 100/54
[2022-02-24 17:52] VITALS: BP 111/56
[2022-02-25] MEDS: OMEPRAZOLE 20 MG CAPSULE PO SCH (06:53)
[2022-02-25] MEDS: MULTIVITAMINS WITH MINERALS, THERAPEUTIC TABLET PO SCH (08:26)
[2022-02-25] MEDS: PROPRANOLOL HCL 20 MG TABLET PO SCH ×2 (08:26→16:51)
[2022-02-25] MEDS: BENZTROPINE MESYLATE 2 MG TABLET PO SCH ×2 (08:27→16:50)
[2022-02-25] MEDS: HALOPERIDOL 5 MG TABLET PO PRN ×2 (08:28→14:10)
[2022-02-25] MEDS: LORazepam 2 MG TABLET PO PRN ×2 (08:28→14:10)
[2022-02-25 08:30] VITALS: BP 101/56
[2022-02-25 16:44] VITALS: BP 97/61
[2022-02-26] MEDS: OMEPRAZOLE 20 MG CAPSULE PO SCH (06:36)
[2022-02-26 08:00] VITALS: BP 106/79
[2022-02-26] MEDS: MULTIVITAMINS WITH MINERALS, THERAPEUTIC TABLET PO SCH (08:21)
[2022-02-26] MEDS: BENZTROPINE MESYLATE 2 MG TABLET PO SCH ×2 (08:21→16:01)
[2022-02-26] MEDS: PROPRANOLOL HCL 20 MG TABLET PO SCH ×2 (08:22→16:01)
[2022-02-26] MEDS: LORazepam 2 MG TABLET PO PRN ×2 (08:47→16:01)
[2022-02-26] MEDS: HALOPERIDOL 5 MG TABLET PO PRN ×2 (08:47→16:01)
[2022-02-26 16:44] VITALS: BP 120/71
[2022-02-27] MEDS: OMEPRAZOLE 20 MG CAPSULE PO SCH (06:23)
[2022-02-27 08:00] VITALS: BP 108/57
[2022-02-27] MEDS: BENZTROPINE MESYLATE 2 MG TABLET PO SCH ×2 (08:54→16:08)
[2022-02-27] MEDS: PROPRANOLOL HCL 20 MG TABLET PO SCH ×2 (08:54→16:08)
[2022-02-27] MEDS: MULTIVITAMINS WITH MINERALS, THERAPEUTIC TABLET PO SCH (08:54)
[2022-02-27] MEDS: HALOPERIDOL 5 MG TABLET PO PRN ×2 (08:55→14:50)
[2022-02-27] MEDS: LORazepam 2 MG TABLET PO PRN (08:55)
[2022-02-27] MEDS: LORazepam 1 MG TABLET PO PRN (14:50)
[2022-02-27 17:12] VITALS: BP 97/57
[2022-02-27] MEDS: MAG HYDROX/AL HYDROX/SIMETH ES 30 ML SUSPENSION UDCUP PO PRN (17:26)
[2022-02-28] MEDS: OMEPRAZOLE 20 MG CAPSULE PO SCH (06:26)
[2022-02-28] MEDS: HALOPERIDOL 5 MG TABLET PO PRN ×2 (08:42→13:44)
[2022-02-28] MEDS: BENZTROPINE MESYLATE 2 MG TABLET PO SCH ×2 (08:42→16:09)
[2022-02-28] MEDS: LORazepam 1 MG TABLET PO PRN (08:42)
[2022-02-28] MEDS: MULTIVITAMINS WITH MINERALS, THERAPEUTIC TABLET PO SCH (08:42)
[2022-02-28] MEDS: PROPRANOLOL HCL 20 MG TABLET PO SCH ×2 (08:43→16:09)
[2022-02-28 09:36] VITALS: BP 118/72
[2022-02-28 16:28] VITALS: BP 124/71
[2022-03-01] MEDS: LORazepam 1 MG TABLET PO PRN ×2 (02:01→15:24)
[2022-03-01] MEDS: HALOPERIDOL 5 MG TABLET PO PRN ×3 (02:01→13:32)
[2022-03-01] MEDS: OMEPRAZOLE 20 MG CAPSULE PO SCH (06:36)
[2022-03-01] MEDS: MULTIVITAMINS WITH MINERALS, THERAPEUTIC TABLET PO SCH (08:31)
[2022-03-01] MEDS: PROPRANOLOL HCL 20 MG TABLET PO SCH ×2 (08:31→17:18)
[2022-03-01] MEDS: BENZTROPINE MESYLATE 2 MG TABLET PO SCH ×2 (08:31→17:17)
[2022-03-01 10:50] VITALS: BP 115/63
[2022-03-01] MEDS: RisperiDONE MICROSPHERES 25 MG/2 ML SYRINGE IM SCH (12:09)
[2022-03-01 13:30] VITALS: BP 112/68
[2022-03-01] MEDS: ACETAMINOPHEN 325 MG TABLET PO PRN (13:32)
[2022-03-01 16:08] VITALS: BP 103/66
[2022-03-01 16:09] VITALS: BP 103/66
[2022-03-02] MEDS: OMEPRAZOLE 20 MG CAPSULE PO SCH (06:17)
[2022-03-02 06:40] LABS: COVID AG,FIA SOURCE NASAL SWAB
[2022-03-02] MEDS: LORazepam 1 MG TABLET PO PRN (07:16)
[2022-03-02] MEDS: BENZTROPINE MESYLATE 2 MG TABLET PO SCH ×2 (08:21→16:18)
[2022-03-02] MEDS: MULTIVITAMINS WITH MINERALS, THERAPEUTIC TABLET PO SCH (08:21)
[2022-03-02] MEDS: PROPRANOLOL HCL 20 MG TABLET PO SCH ×2 (09:00→16:18)
[2022-03-02 09:23] VITALS: BP 116/71
[2022-03-02 16:16] VITALS: BP 117/72
[2022-03-03] MEDS: LORazepam 1 MG TABLET PO PRN ×2 (05:54→19:17)
[2022-03-03] MEDS: OMEPRAZOLE 20 MG CAPSULE PO SCH (06:49)
[2022-03-03] MEDS: MULTIVITAMINS WITH MINERALS, THERAPEUTIC TABLET PO SCH (08:39)
[2022-03-03] MEDS: BENZTROPINE MESYLATE 2 MG TABLET PO SCH ×2 (08:39→17:51)
[2022-03-03 09:07] VITALS: BP 114/68
[2022-03-03] MEDS: PROPRANOLOL HCL 20 MG TABLET PO SCH ×2 (09:09→17:51)
[2022-03-03 16:00] VITALS: BP 136/69
[2022-03-03 16:27] VITALS: BP 108/69
[2022-03-03 17:49] VITALS: BP 120/83
[2022-03-03] MEDS: ALBUTEROL SULFATE HFA 90 MCG/PUFF 8 GM INHALER IH PRN (18:41)
[2022-03-04 06:24] VITALS: BP 104/63
[2022-03-04] MEDS: ACETAMINOPHEN 325 MG TABLET PO PRN (06:24)
[2022-03-04] MEDS: OMEPRAZOLE 20 MG CAPSULE PO SCH (06:54)
[2022-03-04] MEDS: LORazepam 1 MG TABLET PO PRN (07:57)
[2022-03-04 08:10] VITALS: BP 123/85
[2022-03-04] MEDS: PROPRANOLOL HCL 20 MG TABLET PO SCH ×2 (08:15→16:02)
[2022-03-04] MEDS: BENZTROPINE MESYLATE 2 MG TABLET PO SCH ×2 (08:15→16:02)
[2022-03-04] MEDS: MULTIVITAMINS WITH MINERALS, THERAPEUTIC TABLET PO SCH (08:15)
[2022-03-04] MEDS: ALBUTEROL SULFATE HFA 90 MCG/PUFF 8 GM INHALER IH PRN ×2 (08:49→14:47)
[2022-03-04 16:14] VITALS: BP 114/73
[2022-03-05] MEDS: LORazepam 1 MG TABLET PO PRN ×3 (06:16→18:29)
[2022-03-05 06:18] VITALS: BP 110/75
[2022-03-05] MEDS: OMEPRAZOLE 20 MG CAPSULE PO SCH (06:24)
[2022-03-05 08:46] VITALS: BP 86/53
[2022-03-05] MEDS: BENZTROPINE MESYLATE 2 MG TABLET PO SCH ×2 (09:01→16:18)
[2022-03-05] MEDS: MULTIVITAMINS WITH MINERALS, THERAPEUTIC TABLET PO SCH (09:01)
[2022-03-05 09:06] VITALS: BP 106/66
[2022-03-05] MEDS: PROPRANOLOL HCL 20 MG TABLET PO SCH ×2 (10:40→16:18)
[2022-03-05 16:11] VITALS: BP 157/84
[2022-03-05] MEDS: ALBUTEROL SULFATE HFA 90 MCG/PUFF 8 GM INHALER IH PRN (16:18)
[2022-03-05] MEDS: MAG HYDROX/AL HYDROX/SIMETH ES 30 ML SUSPENSION UDCUP PO PRN (17:12)
[2022-03-05] MEDS: HALOPERIDOL 5 MG TABLET PO PRN (17:54)
[2022-03-06] MEDS: OMEPRAZOLE 20 MG CAPSULE PO SCH (06:07)
[2022-03-06] MEDS: HALOPERIDOL 5 MG TABLET PO PRN (07:04)
[2022-03-06] MEDS: LORazepam 1 MG TABLET PO PRN (07:04)
[2022-03-06 08:30] VITALS: BP 135/75
[2022-03-06] MEDS: BENZTROPINE MESYLATE 2 MG TABLET PO SCH ×2 (09:41→17:17)
[2022-03-06] MEDS: MULTIVITAMINS WITH MINERALS, THERAPEUTIC TABLET PO SCH (09:41)
[2022-03-06] MEDS: PROPRANOLOL HCL 20 MG TABLET PO SCH ×2 (10:04→17:17)
[2022-03-06 16:11] VITALS: BP 107/74
[2022-03-06 17:16] VITALS: BP 116/72
[2022-03-06] MEDS: ALBUTEROL SULFATE HFA 90 MCG/PUFF 8 GM INHALER IH PRN (17:19)
[2022-03-07] MEDS: LORazepam 1 MG TABLET PO PRN ×2 (06:01→18:08)
[2022-03-07] MEDS: HALOPERIDOL 5 MG TABLET PO PRN ×2 (06:01→18:08)
[2022-03-07] MEDS: OMEPRAZOLE 20 MG CAPSULE PO SCH (06:34)
[2022-03-07] MEDS: MULTIVITAMINS WITH MINERALS, THERAPEUTIC TABLET PO SCH (08:43)
[2022-03-07] MEDS: BENZTROPINE MESYLATE 2 MG TABLET PO SCH ×2 (08:44→17:36)
[2022-03-07] MEDS: PROPRANOLOL HCL 20 MG TABLET PO SCH ×2 (08:44→17:36)
[2022-03-07 08:52] VITALS: BP 111/73
[2022-03-07 16:28] VITALS: BP 108/74
[2022-03-07] MEDS: ALBUTEROL SULFATE HFA 90 MCG/PUFF 8 GM INHALER IH PRN (16:50)
[2022-03-07 17:33] VITALS: BP 123/86
[2022-03-08] MEDS: OMEPRAZOLE 20 MG CAPSULE PO SCH (06:15)
[2022-03-08 08:16] VITALS: BP 121/87
[2022-03-08] MEDS: HALOPERIDOL 5 MG TABLET PO PRN ×2 (08:53→16:28)
[2022-03-08] MEDS: PROPRANOLOL HCL 20 MG TABLET PO SCH ×2 (08:53→16:29)
[2022-03-08] MEDS: BENZTROPINE MESYLATE 2 MG TABLET PO SCH ×2 (08:53→16:29)
[2022-03-08] MEDS: MULTIVITAMINS WITH MINERALS, THERAPEUTIC TABLET PO SCH (08:53)
[2022-03-08] MEDS: LORazepam 1 MG TABLET PO PRN (08:53)
[2022-03-08 16:01] VITALS: BP 102/69
[2022-03-08] MEDS: ALBUTEROL SULFATE HFA 90 MCG/PUFF 8 GM INHALER IH PRN (16:50)
[2022-03-08 20:44] VITALS: BP 126/84
[2022-03-08] MEDS ORDERED: ZOLPIDEM TARTRATE 5 MG TABLET PO PRN (20:45)
[2022-03-09] MEDS: OMEPRAZOLE 20 MG CAPSULE PO SCH (06:20)
[2022-03-09] MEDS: LORazepam 1 MG TABLET PO PRN (06:37)
[2022-03-09] MEDS: HALOPERIDOL 5 MG TABLET PO PRN ×2 (06:37→13:54)
[2022-03-09 08:00] VITALS: BP 126/82
[2022-03-09 08:04] LABS: COVID AG,FIA SOURCE NASAL SWAB
[2022-03-09] MEDS: MULTIVITAMINS WITH MINERALS, THERAPEUTIC TABLET PO SCH (08:35)
[2022-03-09] MEDS: BENZTROPINE MESYLATE 2 MG TABLET PO SCH ×2 (08:35→16:53)
[2022-03-09] MEDS: PROPRANOLOL HCL 20 MG TABLET PO SCH ×2 (08:35→16:53)
[2022-03-09] MEDS: ALBUTEROL SULFATE HFA 90 MCG/PUFF 8 GM INHALER IH PRN (12:16)
[2022-03-09 16:40] VITALS: BP 109/72
[2022-03-10] MEDS: HALOPERIDOL 5 MG TABLET PO PRN ×2 (05:46→17:02)
[2022-03-10] MEDS: OMEPRAZOLE 20 MG CAPSULE PO SCH (06:04)
[2022-03-10] MEDS: PROPRANOLOL HCL 20 MG TABLET PO SCH ×2 (08:40→16:22)
[2022-03-10] MEDS: BENZTROPINE MESYLATE 2 MG TABLET PO SCH ×2 (08:40→16:22)
[2022-03-10] MEDS: MULTIVITAMINS WITH MINERALS, THERAPEUTIC TABLET PO SCH (08:40)
[2022-03-10] MEDS: ALBUTEROL SULFATE HFA 90 MCG/PUFF 8 GM INHALER IH PRN (08:42)
[2022-03-10 09:56] VITALS: BP 110/78
[2022-03-10 16:12] VITALS: BP 109/77
[2022-03-10] MEDS: LORazepam 1 MG TABLET PO PRN (16:15)
[2022-03-10 16:16] VITALS: BP 109/77
[2022-03-11] MEDS: OMEPRAZOLE 20 MG CAPSULE PO SCH (06:01)
[2022-03-11] MEDS: LORazepam 1 MG TABLET PO PRN ×2 (06:43→18:48)
[2022-03-11] MEDS: HALOPERIDOL 5 MG TABLET PO PRN ×2 (06:43→18:48)
[2022-03-11] MEDS: MULTIVITAMINS WITH MINERALS, THERAPEUTIC TABLET PO SCH (08:57)
[2022-03-11] MEDS: PROPRANOLOL HCL 20 MG TABLET PO SCH ×2 (08:57→17:03)
[2022-03-11] MEDS: BENZTROPINE MESYLATE 2 MG TABLET PO SCH ×2 (08:57→17:03)
[2022-03-11 09:13] VITALS: BP 118/72
[2022-03-11 16:36] VITALS: BP 104/73
[2022-03-12] MEDS: HALOPERIDOL 5 MG TABLET PO PRN (06:59)
[2022-03-12] MEDS: LORazepam 1 MG TABLET PO PRN (06:59)
[2022-03-12] MEDS: OMEPRAZOLE 20 MG CAPSULE PO SCH (07:00)
[2022-03-12] MEDS: PROPRANOLOL HCL 20 MG TABLET PO SCH ×2 (08:20→16:18)
[2022-03-12] MEDS: BENZTROPINE MESYLATE 2 MG TABLET PO SCH ×2 (08:21→16:17)
[2022-03-12] MEDS: MULTIVITAMINS WITH MINERALS, THERAPEUTIC TABLET PO SCH (08:21)
[2022-03-12 09:34] VITALS: BP 116/72
[2022-03-12] MEDS: ALBUTEROL SULFATE HFA 90 MCG/PUFF 8 GM INHALER IH PRN (15:17)
[2022-03-12] MEDS: MAG HYDROX/AL HYDROX/SIMETH ES 30 ML SUSPENSION UDCUP PO PRN (15:18)
[2022-03-12 16:08] VITALS: BP 120/66
[2022-03-13] MEDS: OMEPRAZOLE 20 MG CAPSULE PO SCH (05:45)
[2022-03-13] MEDS: LORazepam 1 MG TABLET PO PRN ×2 (05:51→18:05)
[2022-03-13] MEDS: HALOPERIDOL 5 MG TABLET PO PRN ×2 (05:51→18:05)
[2022-03-13 08:00] VITALS: BP 106/72
[2022-03-13] MEDS: PROPRANOLOL HCL 20 MG TABLET PO SCH ×2 (10:04→16:35)
[2022-03-13] MEDS: BENZTROPINE MESYLATE 2 MG TABLET PO SCH ×2 (10:05→16:35)
[2022-03-13] MEDS: MULTIVITAMINS WITH MINERALS, THERAPEUTIC TABLET PO SCH (10:05)
[2022-03-13 16:23] VITALS: BP 116/72
[2022-03-14] MEDS: OMEPRAZOLE 20 MG CAPSULE PO SCH (06:22)
[2022-03-14] MEDS: HALOPERIDOL 5 MG TABLET PO PRN (06:32)
[2022-03-14] MEDS: LORazepam 1 MG TABLET PO PRN (06:33)
[2022-03-14 08:00] VITALS: BP 98/61
[2022-03-14] MEDS: PROPRANOLOL HCL 20 MG TABLET PO SCH ×2 (08:17→16:20)
[2022-03-14] MEDS: MULTIVITAMINS WITH MINERALS, THERAPEUTIC TABLET PO SCH (08:17)
[2022-03-14] MEDS: BENZTROPINE MESYLATE 2 MG TABLET PO SCH ×2 (08:17→16:20)
[2022-03-14] MEDS: ALBUTEROL SULFATE HFA 90 MCG/PUFF 8 GM INHALER IH PRN ×2 (10:46→17:21)
[2022-03-14 16:14] VITALS: BP 99/67
[2022-03-15] MEDS: LORazepam 1 MG TABLET PO PRN (06:35)
[2022-03-15] MEDS: HALOPERIDOL 5 MG TABLET PO PRN ×2 (06:35→12:27)
[2022-03-15] MEDS: OMEPRAZOLE 20 MG CAPSULE PO SCH (06:38)
[2022-03-15] MEDS: MULTIVITAMINS WITH MINERALS, THERAPEUTIC TABLET PO SCH (08:56)
[2022-03-15] MEDS: BENZTROPINE MESYLATE 2 MG TABLET PO SCH ×2 (08:56→16:05)
[2022-03-15] MEDS: PROPRANOLOL HCL 20 MG TABLET PO SCH ×2 (08:57→16:05)
[2022-03-15 08:58] VITALS: BP 128/69
[2022-03-15] MEDS: RisperiDONE MICROSPHERES 25 MG/2 ML SYRINGE IM SCH (09:59)
[2022-03-15] MEDS: ALBUTEROL SULFATE HFA 90 MCG/PUFF 8 GM INHALER IH PRN (12:27)
[2022-03-15 16:32] VITALS: BP 108/76
[2022-03-16] MEDS: HALOPERIDOL 5 MG TABLET PO PRN ×2 (06:08→12:23)
[2022-03-16] MEDS: LORazepam 1 MG TABLET PO PRN (06:08)
[2022-03-16] MEDS: OMEPRAZOLE 20 MG CAPSULE PO SCH (06:51)
[2022-03-16 07:43] LABS: COVID AG,FIA SOURCE NASAL SWAB
[2022-03-16] MEDS: MULTIVITAMINS WITH MINERALS, THERAPEUTIC TABLET PO SCH (08:31)
[2022-03-16] MEDS: BENZTROPINE MESYLATE 2 MG TABLET PO SCH ×2 (08:31→16:02)
[2022-03-16] MEDS: PROPRANOLOL HCL 20 MG TABLET PO SCH ×2 (08:31→16:02)
[2022-03-16 08:41] VITALS: BP 120/86
[2022-03-16] MEDS: ALBUTEROL SULFATE HFA 90 MCG/PUFF 8 GM INHALER IH PRN (11:50)
[2022-03-16] MEDS: MAG HYDROX/AL HYDROX/SIMETH ES 30 ML SUSPENSION UDCUP PO PRN (16:01)
[2022-03-16 16:10] VITALS: BP 142/79
[2022-03-17] MEDS: LORazepam 1 MG TABLET PO PRN ×2 (06:10→18:15)
[2022-03-17] MEDS: HALOPERIDOL 5 MG TABLET PO PRN ×3 (06:11→18:14)
[2022-03-17] MEDS: OMEPRAZOLE 20 MG CAPSULE PO SCH (06:42)
[2022-03-17] MEDS: MULTIVITAMINS WITH MINERALS, THERAPEUTIC TABLET PO SCH (09:31)
[2022-03-17] MEDS: BENZTROPINE MESYLATE 2 MG TABLET PO SCH ×2 (09:31→16:55)
[2022-03-17 10:21] VITALS: BP 114/77
[2022-03-17] MEDS: PROPRANOLOL HCL 20 MG TABLET PO SCH ×2 (10:23→16:55)
[2022-03-17] MEDS: ALBUTEROL SULFATE HFA 90 MCG/PUFF 8 GM INHALER IH PRN (13:28)
[2022-03-17 16:03] VITALS: BP 102/67
[2022-03-17 18:10] VITALS: BP 112/75
[2022-03-18] MEDS: HALOPERIDOL 5 MG TABLET PO PRN ×2 (07:23→14:23)
[2022-03-18] MEDS: LORazepam 1 MG TABLET PO PRN ×2 (07:23→14:22)
[2022-03-18] MEDS: MULTIVITAMINS WITH MINERALS, THERAPEUTIC TABLET PO SCH (09:29)
[2022-03-18] MEDS: PROPRANOLOL HCL 20 MG TABLET PO SCH ×2 (09:29→16:51)
[2022-03-18] MEDS: BENZTROPINE MESYLATE 2 MG TABLET PO SCH ×2 (09:29→16:51)
[2022-03-18] MEDS: ALBUTEROL SULFATE HFA 90 MCG/PUFF 8 GM INHALER IH PRN (12:43)
[2022-03-18 16:00] VITALS: BP 114/73
[2022-03-19] MEDS: BENZTROPINE MESYLATE 2 MG TABLET PO SCH ×2 (08:48→17:41)
[2022-03-19] MEDS: PROPRANOLOL HCL 20 MG TABLET PO SCH ×2 (08:48→17:41)
[2022-03-19] MEDS: HALOPERIDOL 5 MG TABLET PO PRN ×2 (08:49→13:03)
[2022-03-19] MEDS: LORazepam 1 MG TABLET PO PRN ×2 (08:49→13:03)
[2022-03-19] MEDS: MULTIVITAMINS WITH MINERALS, THERAPEUTIC TABLET PO SCH (08:51)
[2022-03-19 09:27] VITALS: BP 112/81
[2022-03-19] MEDS: ALBUTEROL SULFATE HFA 90 MCG/PUFF 8 GM INHALER IH PRN (12:58)
[2022-03-19 16:00] VITALS: BP 106/73
[2022-03-20] MEDS: MAG HYDROX/AL HYDROX/SIMETH ES 30 ML SUSPENSION UDCUP PO PRN (00:15)
[2022-03-20] MEDS: HALOPERIDOL 5 MG TABLET PO PRN ×2 (06:32→11:57)
[2022-03-20] MEDS: LORazepam 1 MG TABLET PO PRN ×3 (06:33→18:36)
[2022-03-20] MEDS: PROPRANOLOL HCL 20 MG TABLET PO SCH ×2 (09:02→16:20)
[2022-03-20] MEDS: MULTIVITAMINS WITH MINERALS, THERAPEUTIC TABLET PO SCH (09:02)
[2022-03-20] MEDS: BENZTROPINE MESYLATE 2 MG TABLET PO SCH ×2 (09:03→16:20)
[2022-03-20 09:10] VITALS: BP 103/68
[2022-03-20 17:06] VITALS: BP 127/87
[2022-03-21] MEDS: HALOPERIDOL 5 MG TABLET PO PRN (06:06)
[2022-03-21] MEDS: PROPRANOLOL HCL 20 MG TABLET PO SCH ×2 (08:17→16:56)
[2022-03-21] MEDS: BENZTROPINE MESYLATE 2 MG TABLET PO SCH ×2 (08:17→16:57)
[2022-03-21] MEDS: MULTIVITAMINS WITH MINERALS, THERAPEUTIC TABLET PO SCH (08:19)
[2022-03-21] MEDS: MAG HYDROX/AL HYDROX/SIMETH ES 30 ML SUSPENSION UDCUP PO PRN (08:20)
[2022-03-21 08:58] VITALS: BP 146/77
[2022-03-21] MEDS: LORazepam 1 MG TABLET PO PRN (11:11)
[2022-03-21] MEDS: ALBUTEROL SULFATE HFA 90 MCG/PUFF 8 GM INHALER IH PRN (14:39)
[2022-03-21 16:30] VITALS: BP 115/79
[2022-03-21 21:59] VITALS: BP 139/89
[2022-03-22 06:07] VITALS: BP 111/73
[2022-03-22] MEDS: HALOPERIDOL 5 MG TABLET PO PRN ×2 (06:07→18:19)
[2022-03-22] MEDS: LORazepam 1 MG TABLET PO PRN ×2 (06:07→18:19)
[2022-03-22] MEDS: MULTIVITAMINS WITH MINERALS, THERAPEUTIC TABLET PO SCH (08:50)
[2022-03-22] MEDS: PROPRANOLOL HCL 20 MG TABLET PO SCH ×2 (08:51→17:05)
[2022-03-22] MEDS: BENZTROPINE MESYLATE 2 MG TABLET PO SCH ×2 (08:51→17:05)
[2022-03-22 09:00] VITALS: BP 103/65
[2022-03-22 16:48] VITALS: BP 126/85
[2022-03-22] MEDS: ALBUTEROL SULFATE HFA 90 MCG/PUFF 8 GM INHALER IH PRN (17:06)
[2022-03-23 06:38] LABS: COVID AG,FIA SOURCE NASAL SWAB
[2022-03-23 07:06] VITALS: BP 117/82
[2022-03-23] MEDS: LORazepam 1 MG TABLET PO PRN (07:09)
[2022-03-23] MEDS: HALOPERIDOL 5 MG TABLET PO PRN (07:09)
[2022-03-23 08:30] VITALS: BP 118/82
[2022-03-23] MEDS: MULTIVITAMINS WITH MINERALS, THERAPEUTIC TABLET PO SCH (09:05)
[2022-03-23] MEDS: BENZTROPINE MESYLATE 2 MG TABLET PO SCH ×2 (09:05→17:02)
[2022-03-23] MEDS: PROPRANOLOL HCL 20 MG TABLET PO SCH ×2 (09:05→17:00)
[2022-03-23] MEDS: LOPERAMIDE HCL 2 MG CAPSULE PO PRN (11:44)
[2022-03-23 16:01] VITALS: BP 91/59
[2022-03-23] MEDS: ALBUTEROL SULFATE HFA 90 MCG/PUFF 8 GM INHALER IH PRN (17:00)
[2022-03-24] MEDS: LORazepam 1 MG TABLET PO PRN (05:46)
[2022-03-24] MEDS: HALOPERIDOL 5 MG TABLET PO PRN (05:46)
[2022-03-24] MEDS: BENZTROPINE MESYLATE 2 MG TABLET PO SCH ×2 (08:30→17:05)
[2022-03-24] MEDS: PROPRANOLOL HCL 20 MG TABLET PO SCH ×2 (08:30→17:05)
[2022-03-24] MEDS: MULTIVITAMINS WITH MINERALS, THERAPEUTIC TABLET PO SCH (08:30)
[2022-03-24] MEDS: ALBUTEROL SULFATE HFA 90 MCG/PUFF 8 GM INHALER IH PRN (08:36)
[2022-03-24 08:56] VITALS: BP 116/74
[2022-03-24] MEDS: GuaiFENesin/D-METHORPHAN [SUGAR-FREE] 200-20MG/10 ML SYRUP UDCUP PO PRN ×2 (10:00→14:17)
[2022-03-24 16:17] VITALS: BP 110/78
[2022-03-24] MEDS: LORATADINE 10 MG TABLET PO PRN (17:05)
[2022-03-25] MEDS: LORazepam 1 MG TABLET PO PRN (05:20)
[2022-03-25] MEDS: HALOPERIDOL 5 MG TABLET PO PRN (05:20)
[2022-03-25] MEDS: GuaiFENesin/D-METHORPHAN [SUGAR-FREE] 200-20MG/10 ML SYRUP UDCUP PO PRN ×3 (05:28→15:00)
[2022-03-25] MEDS: MULTIVITAMINS WITH MINERALS, THERAPEUTIC TABLET PO SCH (09:42)
[2022-03-25] MEDS: BENZTROPINE MESYLATE 2 MG TABLET PO SCH ×2 (09:43→16:32)
[2022-03-25] MEDS: PROPRANOLOL HCL 20 MG TABLET PO SCH ×2 (09:54→16:33)
[2022-03-25 10:50] VITALS: BP 132/78
[2022-03-25 16:16] VITALS: BP_SYST 103; BP_SYST 113; BP_DIAS 67
[2022-03-25] MEDS: MAG HYDROX/AL HYDROX/SIMETH ES 30 ML SUSPENSION UDCUP PO PRN (16:33)
[2022-03-26] MEDS: HALOPERIDOL 5 MG TABLET PO PRN (05:10)
[2022-03-26] MEDS: LORazepam 1 MG TABLET PO PRN (05:10)
[2022-03-26] MEDS: GuaiFENesin/D-METHORPHAN [SUGAR-FREE] 200-20MG/10 ML SYRUP UDCUP PO PRN ×3 (05:11→16:20)
[2022-03-26] MEDS: MULTIVITAMINS WITH MINERALS, THERAPEUTIC TABLET PO SCH (08:52)
[2022-03-26] MEDS: BENZTROPINE MESYLATE 2 MG TABLET PO SCH ×2 (08:52→16:15)
[2022-03-26] MEDS: PROPRANOLOL HCL 20 MG TABLET PO SCH ×2 (08:52→16:15)
[2022-03-26] MEDS: ACETAMINOPHEN 325 MG TABLET PO PRN (16:18)
[2022-03-26 16:28] VITALS: BP 114/81
[2022-03-27] MEDS: GuaiFENesin/D-METHORPHAN [SUGAR-FREE] 200-20MG/10 ML SYRUP UDCUP PO PRN ×3 (05:05→17:49)
[2022-03-27] MEDS: LORazepam 1 MG TABLET PO PRN (05:06)
[2022-03-27] MEDS: HALOPERIDOL 5 MG TABLET PO PRN (05:06)
[2022-03-27] MEDS: MULTIVITAMINS WITH MINERALS, THERAPEUTIC TABLET PO SCH (08:52)
[2022-03-27] MEDS: BENZTROPINE MESYLATE 2 MG TABLET PO SCH ×2 (08:52→16:30)
[2022-03-27] MEDS: PROPRANOLOL HCL 20 MG TABLET PO SCH ×2 (08:52→16:30)
[2022-03-27 09:49] VITALS: BP 145/81
[2022-03-27] MEDS: ACETAMINOPHEN 325 MG TABLET PO PRN (09:49)
[2022-03-27 18:10] VITALS: BP 112/65
[2022-03-28] MEDS: LORazepam 1 MG TABLET PO PRN ×2 (05:03→18:30)
[2022-03-28] MEDS: GuaiFENesin/D-METHORPHAN [SUGAR-FREE] 200-20MG/10 ML SYRUP UDCUP PO PRN ×3 (05:03→17:29)
[2022-03-28] MEDS: HALOPERIDOL 5 MG TABLET PO PRN ×2 (05:03→18:34)
[2022-03-28 08:24] VITALS: BP 108/69
[2022-03-28] MEDS: MULTIVITAMINS WITH MINERALS, THERAPEUTIC TABLET PO SCH (08:45)
[2022-03-28] MEDS: BENZTROPINE MESYLATE 2 MG TABLET PO SCH ×2 (08:46→17:04)
[2022-03-28] MEDS: PROPRANOLOL HCL 20 MG TABLET PO SCH ×2 (08:46→17:04)
[2022-03-28 16:20] VITALS: BP 110/70
[2022-03-29] MEDS: LORazepam 1 MG TABLET PO PRN (06:57)
[2022-03-29] MEDS: HALOPERIDOL 5 MG TABLET PO PRN ×2 (06:57→13:14)
[2022-03-29] MEDS: GuaiFENesin/D-METHORPHAN [SUGAR-FREE] 200-20MG/10 ML SYRUP UDCUP PO PRN ×2 (06:58→12:26)
[2022-03-29] MEDS: MULTIVITAMINS WITH MINERALS, THERAPEUTIC TABLET PO SCH (09:10)
[2022-03-29] MEDS: BENZTROPINE MESYLATE 2 MG TABLET PO SCH ×2 (09:10→16:40)
[2022-03-29] MEDS: PROPRANOLOL HCL 20 MG TABLET PO SCH ×2 (09:11→16:40)
[2022-03-29 09:21] VITALS: BP 102/73
[2022-03-29] MEDS: RisperiDONE MICROSPHERES 25 MG/2 ML SYRINGE IM SCH (14:15)
[2022-03-30] MEDS: LORazepam 1 MG TABLET PO PRN (05:15)
[2022-03-30] MEDS: GuaiFENesin/D-METHORPHAN [SUGAR-FREE] 200-20MG/10 ML SYRUP UDCUP PO PRN (05:15)
[2022-03-30] MEDS: HALOPERIDOL 5 MG TABLET PO PRN ×2 (05:15→14:46)
[2022-03-30] MEDS: PROPRANOLOL HCL 20 MG TABLET PO SCH ×2 (09:12→16:36)
[2022-03-30] MEDS: BENZTROPINE MESYLATE 2 MG TABLET PO SCH ×2 (09:12→16:36)
[2022-03-30] MEDS: MULTIVITAMINS WITH MINERALS, THERAPEUTIC TABLET PO SCH (09:12)
[2022-03-30 09:37] VITALS: BP 108/64
[2022-03-30 16:39] VITALS: BP 104/71
[2022-03-31] MEDS: HALOPERIDOL 5 MG TABLET PO PRN ×2 (05:26→10:14)
[2022-03-31] MEDS: LORazepam 1 MG TABLET PO PRN (05:26)
[2022-03-31] MEDS: GuaiFENesin/D-METHORPHAN [SUGAR-FREE] 200-20MG/10 ML SYRUP UDCUP PO PRN ×3 (05:26→17:48)
[2022-03-31 05:29] VITALS: BP 111/76
[2022-03-31 08:00] VITALS: BP 97/65
[2022-03-31] MEDS: MULTIVITAMINS WITH MINERALS, THERAPEUTIC TABLET PO SCH (09:52)
[2022-03-31] MEDS: PROPRANOLOL HCL 20 MG TABLET PO SCH ×2 (09:53→17:22)
[2022-03-31] MEDS: BENZTROPINE MESYLATE 2 MG TABLET PO SCH ×2 (09:53→17:22)
[2022-03-31] MEDS: ALBUTEROL SULFATE HFA 90 MCG/PUFF 8 GM INHALER IH PRN (13:59)
[2022-03-31 16:34] VITALS: BP 117/87
[2022-03-31] MEDS: LORATADINE 10 MG TABLET PO PRN (17:22)
[2022-03-31 17:48] VITALS: BP 117/87
[2022-03-31] MEDS: IBUPROFEN 600 MG TABLET PO PRN (17:48)
[2022-03-31 18:48] VITALS: BP 111/81
[2022-04-01 05:35] VITALS: BP 114/83
[2022-04-01] MEDS: LORazepam 1 MG TABLET PO PRN (05:41)
[2022-04-01] MEDS: GuaiFENesin/D-METHORPHAN [SUGAR-FREE] 200-20MG/10 ML SYRUP UDCUP PO PRN ×2 (05:41→17:45)
[2022-04-01] MEDS: HALOPERIDOL 5 MG TABLET PO PRN (05:41)
[2022-04-01 08:06] VITALS: BP 102/62
[2022-04-01] MEDS: MULTIVITAMINS WITH MINERALS, THERAPEUTIC TABLET PO SCH (08:18)
[2022-04-01] MEDS: PROPRANOLOL HCL 20 MG TABLET PO SCH ×2 (08:18→16:18)
[2022-04-01] MEDS: BENZTROPINE MESYLATE 2 MG TABLET PO SCH ×2 (08:18→16:18)
[2022-04-01 16:03] VITALS: BP 108/64
[2022-04-01 17:45] VITALS: BP 108/64
[2022-04-01] MEDS: IBUPROFEN 600 MG TABLET PO PRN (17:45)
[2022-04-01 18:45] VITALS: BP 104/68
[2022-04-01] MEDS: MAG HYDROX/AL HYDROX/SIMETH ES 30 ML SUSPENSION UDCUP PO PRN (23:18)
[2022-04-02] MEDS: LORazepam 1 MG TABLET PO PRN (06:38)
[2022-04-02] MEDS: HALOPERIDOL 5 MG TABLET PO PRN (06:38)
[2022-04-02] MEDS: GuaiFENesin/D-METHORPHAN [SUGAR-FREE] 200-20MG/10 ML SYRUP UDCUP PO PRN (07:05)
[2022-04-02] MEDS: PROPRANOLOL HCL 20 MG TABLET PO SCH ×2 (08:48→16:43)
[2022-04-02] MEDS: MULTIVITAMINS WITH MINERALS, THERAPEUTIC TABLET PO SCH (08:48)
[2022-04-02] MEDS: BENZTROPINE MESYLATE 2 MG TABLET PO SCH ×2 (08:48→16:43)
[2022-04-02 09:04] VITALS: BP 108/70
[2022-04-02 16:08] VITALS: BP 105/73
[2022-04-03] MEDS: LORazepam 1 MG TABLET PO PRN (06:05)
[2022-04-03] MEDS: HALOPERIDOL 5 MG TABLET PO PRN ×2 (06:05→14:42)
[2022-04-03] MEDS: GuaiFENesin/D-METHORPHAN [SUGAR-FREE] 200-20MG/10 ML SYRUP UDCUP PO PRN (06:15)
[2022-04-03] MEDS: PROPRANOLOL HCL 20 MG TABLET PO SCH ×2 (08:54→16:45)
[2022-04-03] MEDS: BENZTROPINE MESYLATE 2 MG TABLET PO SCH ×2 (08:54→16:45)
[2022-04-03] MEDS: MULTIVITAMINS WITH MINERALS, THERAPEUTIC TABLET PO SCH (08:54)
[2022-04-03 09:35] VITALS: BP 127/82
[2022-04-03 16:54] VITALS: BP 136/61
[2022-04-04] MEDS: HALOPERIDOL 5 MG TABLET PO PRN ×2 (05:50→13:26)
[2022-04-04] MEDS: LORazepam 1 MG TABLET PO PRN (05:50)
[2022-04-04] MEDS: GuaiFENesin/D-METHORPHAN [SUGAR-FREE] 200-20MG/10 ML SYRUP UDCUP PO PRN ×2 (05:50→13:26)
[2022-04-04 08:00] VITALS: BP 103/77
[2022-04-04] MEDS: PROPRANOLOL HCL 20 MG TABLET PO SCH ×2 (10:52→17:13)
[2022-04-04] MEDS: BENZTROPINE MESYLATE 2 MG TABLET PO SCH ×2 (10:52→17:13)
[2022-04-04] MEDS: MULTIVITAMINS WITH MINERALS, THERAPEUTIC TABLET PO SCH (10:52)
[2022-04-04] MEDS: LORATADINE 10 MG TABLET PO PRN (13:26)
[2022-04-04 16:00] VITALS: BP 102/71
[2022-04-04 18:09] VITALS: BP 102/71
[2022-04-05] MEDS: LORazepam 1 MG TABLET PO PRN ×2 (05:49→17:59)
[2022-04-05] MEDS: GuaiFENesin/D-METHORPHAN [SUGAR-FREE] 200-20MG/10 ML SYRUP UDCUP PO PRN ×2 (05:49→16:30)
[2022-04-05] MEDS: HALOPERIDOL 5 MG TABLET PO PRN ×2 (05:49→15:24)
[2022-04-05 07:32] LABS: COVID AG,FIA SOURCE NASAL SWAB
[2022-04-05 09:26] VITALS: BP 106/65
[2022-04-05] MEDS: LOPERAMIDE HCL 2 MG CAPSULE PO PRN (10:38)
[2022-04-05] MEDS: MAG HYDROX/AL HYDROX/SIMETH ES 30 ML SUSPENSION UDCUP PO PRN (10:38)
[2022-04-05] MEDS: PROPRANOLOL HCL 20 MG TABLET PO SCH ×2 (10:39→16:09)
[2022-04-05] MEDS: BENZTROPINE MESYLATE 2 MG TABLET PO SCH ×2 (10:39→16:09)
[2022-04-05] MEDS: MULTIVITAMINS WITH MINERALS, THERAPEUTIC TABLET PO SCH (10:39)
[2022-04-05 16:00] VITALS: BP 103/74
[2022-04-05] MEDS: LORATADINE 10 MG TABLET PO PRN (16:30)
[2022-04-06] MEDS: GuaiFENesin/D-METHORPHAN [SUGAR-FREE] 200-20MG/10 ML SYRUP UDCUP PO PRN ×2 (05:47→15:30)
[2022-04-06] MEDS: HALOPERIDOL 5 MG TABLET PO PRN ×2 (05:47→15:30)
[2022-04-06] MEDS: LORazepam 1 MG TABLET PO PRN (05:47)
[2022-04-06 08:15] VITALS: BP 102/67
[2022-04-06] MEDS: MULTIVITAMINS WITH MINERALS, THERAPEUTIC TABLET PO SCH (10:12)
[2022-04-06] MEDS: BENZTROPINE MESYLATE 2 MG TABLET PO SCH ×2 (10:12→17:28)
[2022-04-06] MEDS: PROPRANOLOL HCL 20 MG TABLET PO SCH ×2 (10:12→17:28)
[2022-04-06] MEDS: LOPERAMIDE HCL 2 MG CAPSULE PO PRN (11:58)
[2022-04-06] MEDS: MAG HYDROX/AL HYDROX/SIMETH ES 30 ML SUSPENSION UDCUP PO PRN (11:58)
[2022-04-06] MEDS: ALBUTEROL SULFATE HFA 90 MCG/PUFF 8 GM INHALER IH PRN (16:21)
[2022-04-06 16:55] VITALS: BP 140/71
[2022-04-07] MEDS: LORazepam 1 MG TABLET PO PRN ×2 (06:12→18:51)
[2022-04-07] MEDS: GuaiFENesin/D-METHORPHAN [SUGAR-FREE] 200-20MG/10 ML SYRUP UDCUP PO PRN ×2 (06:12→18:39)
[2022-04-07] MEDS: HALOPERIDOL 5 MG TABLET PO PRN (06:12)
[2022-04-07] MEDS: PROPRANOLOL HCL 20 MG TABLET PO SCH ×2 (09:19→16:09)
[2022-04-07] MEDS: BENZTROPINE MESYLATE 2 MG TABLET PO SCH ×2 (09:19→16:09)
[2022-04-07] MEDS: MULTIVITAMINS WITH MINERALS, THERAPEUTIC TABLET PO SCH (09:19)
[2022-04-07 09:37] VITALS: BP 96/59
[2022-04-07 16:57] VITALS: BP 103/70
[2022-04-08] MEDS: HALOPERIDOL 5 MG TABLET PO PRN (06:51)
[2022-04-08] MEDS: LORazepam 1 MG TABLET PO PRN (06:52)
[2022-04-08] MEDS: MULTIVITAMINS WITH MINERALS, THERAPEUTIC TABLET PO SCH (08:34)
[2022-04-08] MEDS: PROPRANOLOL HCL 20 MG TABLET PO SCH ×2 (08:34→16:21)
[2022-04-08] MEDS: BENZTROPINE MESYLATE 2 MG TABLET PO SCH ×2 (08:34→16:21)
[2022-04-08 09:00] VITALS: BP 107/67
[2022-04-08 16:48] VITALS: BP 110/70
[2022-04-08] MEDS: GuaiFENesin/D-METHORPHAN [SUGAR-FREE] 200-20MG/10 ML SYRUP UDCUP PO PRN (18:12)
[2022-04-08] MEDS: ALBUTEROL SULFATE HFA 90 MCG/PUFF 8 GM INHALER IH PRN (18:13)
[2022-04-08] MEDS: MAG HYDROX/AL HYDROX/SIMETH ES 30 ML SUSPENSION UDCUP PO PRN (22:01)
[2022-04-09] MEDS: LORazepam 1 MG TABLET PO PRN (04:53)
[2022-04-09] MEDS: HALOPERIDOL 5 MG TABLET PO PRN (04:53)
[2022-04-09] MEDS: GuaiFENesin/D-METHORPHAN [SUGAR-FREE] 200-20MG/10 ML SYRUP UDCUP PO PRN ×2 (04:54→17:42)
[2022-04-09 08:00] VITALS: BP 92/61
[2022-04-09] MEDS: MULTIVITAMINS WITH MINERALS, THERAPEUTIC TABLET PO SCH (09:21)
[2022-04-09] MEDS: PROPRANOLOL HCL 20 MG TABLET PO SCH ×2 (09:21→16:18)
[2022-04-09] MEDS: BENZTROPINE MESYLATE 2 MG TABLET PO SCH ×2 (09:21→16:18)
[2022-04-09] MEDS: ALBUTEROL SULFATE HFA 90 MCG/PUFF 8 GM INHALER IH PRN (16:19)
[2022-04-09 16:35] VITALS: BP 127/80
[2022-04-10] MEDS: GuaiFENesin/D-METHORPHAN [SUGAR-FREE] 200-20MG/10 ML SYRUP UDCUP PO PRN (05:35)
[2022-04-10] MEDS: HALOPERIDOL 5 MG TABLET PO PRN ×2 (05:35→17:41)
[2022-04-10] MEDS: LORazepam 1 MG TABLET PO PRN ×2 (05:35→17:41)
[2022-04-10 06:13] VITALS: BP 120/80
[2022-04-10] MEDS: ACETAMINOPHEN 325 MG TABLET PO PRN (06:13)
[2022-04-10] MEDS: MULTIVITAMINS WITH MINERALS, THERAPEUTIC TABLET PO SCH (08:26)
[2022-04-10] MEDS: BENZTROPINE MESYLATE 2 MG TABLET PO SCH ×2 (08:26→17:41)
[2022-04-10] MEDS: PROPRANOLOL HCL 20 MG TABLET PO SCH ×2 (08:26→17:41)
[2022-04-10 10:12] VITALS: BP 124/67
[2022-04-10 16:00] VITALS: BP 114/81
[2022-04-11] MEDS: LORazepam 1 MG TABLET PO PRN (06:47)
[2022-04-11] MEDS: HALOPERIDOL 5 MG TABLET PO PRN ×2 (06:47→17:39)
[2022-04-11] MEDS: GuaiFENesin/D-METHORPHAN [SUGAR-FREE] 200-20MG/10 ML SYRUP UDCUP PO PRN ×2 (06:47→18:19)
[2022-04-11 08:02] VITALS: BP 110/71
[2022-04-11] MEDS: MULTIVITAMINS WITH MINERALS, THERAPEUTIC TABLET PO SCH (08:30)
[2022-04-11] MEDS: PROPRANOLOL HCL 20 MG TABLET PO SCH ×2 (08:30→16:30)
[2022-04-11] MEDS: BENZTROPINE MESYLATE 2 MG TABLET PO SCH ×2 (08:31→16:07)
[2022-04-12] MEDS: LORazepam 1 MG TABLET PO PRN (05:47)
[2022-04-12] MEDS: GuaiFENesin/D-METHORPHAN [SUGAR-FREE] 200-20MG/10 ML SYRUP UDCUP PO PRN (05:51)
[2022-04-12 07:30] LABS: COVID AG,FIA SOURCE NASAL SWAB
[2022-04-12] MEDS: MULTIVITAMINS WITH MINERALS, THERAPEUTIC TABLET PO SCH (08:26)
[2022-04-12] MEDS: PROPRANOLOL HCL 20 MG TABLET PO SCH ×2 (08:26→16:28)
[2022-04-12] MEDS: BENZTROPINE MESYLATE 2 MG TABLET PO SCH ×2 (08:26→16:28)
[2022-04-12 08:31] VITALS: BP 95/58
[2022-04-12] MEDS: RisperiDONE MICROSPHERES 25 MG/2 ML SYRINGE IM SCH (11:04)
[2022-04-12 16:30] VITALS: BP 118/70
[2022-04-13] MEDS: LORazepam 1 MG TABLET PO PRN (06:11)
[2022-04-13] MEDS: GuaiFENesin/D-METHORPHAN [SUGAR-FREE] 200-20MG/10 ML SYRUP UDCUP PO PRN (06:12)
[2022-04-13] MEDS: ALBUTEROL SULFATE HFA 90 MCG/PUFF 8 GM INHALER IH PRN ×2 (06:16→13:06)
[2022-04-13 08:29] VITALS: BP 104/72
[2022-04-13] MEDS: MULTIVITAMINS WITH MINERALS, THERAPEUTIC TABLET PO SCH (09:07)
[2022-04-13] MEDS: BENZTROPINE MESYLATE 2 MG TABLET PO SCH ×2 (09:08→16:46)
[2022-04-13] MEDS: PROPRANOLOL HCL 20 MG TABLET PO SCH ×2 (09:08→16:46)
[2022-04-13 16:10] VITALS: BP 140/95
[2022-04-13] MEDS: MAG HYDROX/AL HYDROX/SIMETH ES 30 ML SUSPENSION UDCUP PO PRN (16:59)
[2022-04-13] MEDS ORDERED: TUBERCULIN, PURIFIED PROTEIN DERIVATIVE 5 TU/0.1 ML SYRINGE ID ONE (17:00)
[2022-04-14] MEDS: GuaiFENesin/D-METHORPHAN [SUGAR-FREE] 200-20MG/10 ML SYRUP UDCUP PO PRN ×2 (06:14→16:45)
[2022-04-14] MEDS: LORazepam 1 MG TABLET PO PRN (06:14)
[2022-04-14 08:45] VITALS: BP 115/79
[2022-04-14] MEDS: MULTIVITAMINS WITH MINERALS, THERAPEUTIC TABLET PO SCH (08:52)
[2022-04-14] MEDS: PROPRANOLOL HCL 20 MG TABLET PO SCH ×2 (08:52→16:44)
[2022-04-14] MEDS: BENZTROPINE MESYLATE 2 MG TABLET PO SCH ×2 (08:52→16:44)
[2022-04-14 16:32] VITALS: BP 113/77
[2022-04-15] MEDS: HALOPERIDOL 5 MG TABLET PO PRN (06:38)
[2022-04-15] MEDS: GuaiFENesin/D-METHORPHAN [SUGAR-FREE] 200-20MG/10 ML SYRUP UDCUP PO PRN (06:38)
[2022-04-15] MEDS: LORazepam 1 MG TABLET PO PRN (06:38)
[2022-04-15] MEDS: PROPRANOLOL HCL 20 MG TABLET PO SCH ×2 (08:28→16:47)
[2022-04-15] MEDS: BENZTROPINE MESYLATE 2 MG TABLET PO SCH ×2 (08:28→16:47)
[2022-04-15] MEDS: MULTIVITAMINS WITH MINERALS, THERAPEUTIC TABLET PO SCH (08:29)
[2022-04-15 10:04] VITALS: BP 117/62
[2022-04-15 16:21] VITALS: BP 108/69
[2022-04-16] MEDS: LORazepam 1 MG TABLET PO PRN (05:56)
[2022-04-16] MEDS: HALOPERIDOL 5 MG TABLET PO PRN (05:56)
[2022-04-16 08:18] VITALS: BP 115/77
[2022-04-16] MEDS: MULTIVITAMINS WITH MINERALS, THERAPEUTIC TABLET PO SCH (08:33)
[2022-04-16] MEDS: PROPRANOLOL HCL 20 MG TABLET PO SCH ×2 (08:33→17:00)
[2022-04-16] MEDS: BENZTROPINE MESYLATE 2 MG TABLET PO SCH ×2 (08:33→17:04)
[2022-04-16] MEDS: MAG HYDROX/AL HYDROX/SIMETH ES 30 ML SUSPENSION UDCUP PO PRN (15:49)
[2022-04-16 16:14] VITALS: BP 103/77
[2022-04-16] MEDS: GuaiFENesin/D-METHORPHAN [SUGAR-FREE] 200-20MG/10 ML SYRUP UDCUP PO PRN (18:39)
[2022-04-17] MEDS: HALOPERIDOL 5 MG TABLET PO PRN (05:49)
[2022-04-17] MEDS: LORazepam 1 MG TABLET PO PRN (05:49)
[2022-04-17] MEDS: GuaiFENesin/D-METHORPHAN [SUGAR-FREE] 200-20MG/10 ML SYRUP UDCUP PO PRN (05:49)
[2022-04-17] MEDS: MULTIVITAMINS WITH MINERALS, THERAPEUTIC TABLET PO SCH (08:23)
[2022-04-17] MEDS: PROPRANOLOL HCL 20 MG TABLET PO SCH ×2 (08:23→16:10)
[2022-04-17] MEDS: BENZTROPINE MESYLATE 2 MG TABLET PO SCH ×2 (08:23→16:10)
[2022-04-17 08:46] VITALS: BP 117/68
[2022-04-17] MEDS: MAG HYDROX/AL HYDROX/SIMETH ES 30 ML SUSPENSION UDCUP PO PRN (15:49)
[2022-04-17 16:23] VITALS: BP 134/84
[2022-04-17 18:43] VITALS: BP 126/78
[2022-04-17] MEDS: IBUPROFEN 600 MG TABLET PO PRN (18:43)
[2022-04-18] MEDS: HALOPERIDOL 5 MG TABLET PO PRN (05:45)
[2022-04-18] MEDS: GuaiFENesin/D-METHORPHAN [SUGAR-FREE] 200-20MG/10 ML SYRUP UDCUP PO PRN ×2 (05:45→17:48)
[2022-04-18] MEDS: LORazepam 1 MG TABLET PO PRN (05:45)
[2022-04-18 08:00] VITALS: BP 136/81
[2022-04-18] MEDS: MULTIVITAMINS WITH MINERALS, THERAPEUTIC TABLET PO SCH (08:16)
[2022-04-18] MEDS: BENZTROPINE MESYLATE 2 MG TABLET PO SCH ×2 (08:16→16:12)
[2022-04-18] MEDS: PROPRANOLOL HCL 20 MG TABLET PO SCH ×2 (08:20→16:11)
[2022-04-18 17:15] VITALS: BP 126/75
[2022-04-18] MEDS: ACETAMINOPHEN 325 MG TABLET PO PRN (17:18)
[2022-04-19 08:02] LABS: COVID AG,FIA SOURCE NASAL SWAB
[2022-04-19 08:52] VITALS: BP 120/72
[2022-04-19] MEDS: PROPRANOLOL HCL 20 MG TABLET PO SCH (08:55)
[2022-04-19] MEDS: BENZTROPINE MESYLATE 2 MG TABLET PO SCH (08:55)
[2022-04-19] MEDS: MULTIVITAMINS WITH MINERALS, THERAPEUTIC TABLET PO SCH (08:55)
[2022-04-19] MEDS ORDERED: BENZ2TAB76 PO (10:29)
[2022-04-19] MEDS ORDERED: RISPC25 IM (10:29)
== END 2022-04-19 13:30 | disposition home or self-care (01) | DRG 750 ==
LOC: EMS 17:10 → 3EC 09-11 03:32 → 3EI 01-16 18:05
PROVIDERS: ADMIT Psychiatry & Neurology Psychiatry; ATTEND Psychiatry & Neurology Psychiatry
DX: F25.9 Schizoaffective disorder, unspecified (principal); Z91.14 Patient's other noncompliance with medication regimen; F15.10 Other stimulant abuse, uncomplicated; F41.9 Anxiety disorder, unspecified; G47.00 Insomnia, unspecified; K59.00 Constipation, unspecified; F17.200 Nicotine dependence, unspecified, uncomplicated; J45.909 Unspecified asthma, uncomplicated; Z20.822 Contact with and (suspected) exposure to COVID-19; M25.511 Pain in right shoulder
CPT/HCPCS: 76700; 80053; 80061; 81001; 82140; 83036; 83735; 84100; 84443; 84702; 84703; 85025; 87081; 99285; G0480; J1200; J1630; J2060; J2794; J3535